=== PATIENT | male | born 1960 | race Caucasian/White ===

== ENCOUNTER 2023-04-15 07:49 | Emergency (ER) | payer OTHER, SELFPAY ==
[2023-04-15 07:50] VITALS: BP 135/76; PULSE 113; RESP 17; TEMP 36.4; O2SAT 96; BMI 25.7
--- NOTE | 2023-04-15 08:22 | CT_ITS ---
STUDY: CT ABDOMEN AND PELVIS WITHOUT CONTRAST REASON FOR EXAM: Male, 62 years old. Pain RADIATION DOSAGE (If Supplied By Facility): CTDIvol = ( 8.63 ) mGy, DLP = ( 498.18 ) mGycm TECHNIQUE: Transaxial images were obtained from the dome of the diaphragm to the symphysis pubis without oral contrast, and without intravenous contrast. Sagittal and coronal images were reconstructed. Individualized dose optimization techniques were used for this CT. COMPARISON: None. FINDINGS: Some left lower lobe discoid atelectasis. The visualized portions of the heart are within normal limits. Large amount of ascites. There is a diffuse contour abnormality of the liver consistent with cirrhotic changes. The gallbladder is contracted. There is moderate splenomegaly. Normal pancreas. Normal bilateral adrenal glands. Normal right kidney. Tiny (1 to 2 mm) nonobstructing stone in the midsection left kidney. No hydronephrosis, ureteral stone, ureteral dilatation. There is a small hiatal hernia. Normal small intestine. Normal colon. The appendix is visualized and appears normal. Normal abdominal aorta. Normal inferior vena cava. Normal retroperitoneum. Normal urinary bladder. Normal abdominal wall. Normal osseous structures. CT/Abdomen/Pelvis without Cont IMPRESSION: 1. Cirrhosis with a large amount of ascites and moderate splenomegaly consistent with portal hypertension. 2. Small hiatal hernia. 3. Tiny nonobstructing left renal stone. Electronically Signed: Jose Alejandro Solitario MD at 9:19 EST ,
--- NOTE | 2023-04-15 08:23 | EDS_ITS ---
HPI HPI - GI History of Present Illness Chief Complaint: Abd Pain Detail of Chief Complaint: Abdominal distention Informant: patient Narrative Narrative: Patient presents to the emergency department complaint of abdominal distention. Patient states that he was diagnosed a couple of weeks ago with cirrhosis as well as HIV. He was seen at [facility] locally and then was transferred to [facility] where he had a paracentesis. He was started on Biktarvy for his HIV. Patient states that he had some abdominal swelling and was in a come in and be seen 3 days ago but then the swelling went down. Since yesterday has had increased swelling in his abdomen again. He denies chest pain or shortness of breath. [facility] Medical History (Updated 04/15/23 @ 10:[address] Tenisha Corral DO) Cirrhosis HIV disease Allergy/AdvReac Type Severity Reaction Status Date / Time No Known Allergies Allergy Verified 04/15/23 07:53 Social History Smoking Status: Unknown if ever smoked ROS ROS ED Review of Systems ROS Unobtainable: other Constitutional Constitutional ED: Reports lethargy; Denies chills, fever(s), sweats or weight loss Eyes Eyes: Denies blurry vision, change in vision or diplopia ENT ENT ED: Denies rhinorrhea or sore throat Cardiovascular Cardiovascular: Denies chest pain, orthopnea or racing heartbeat Respiratory/Chest Respiratory/Chest: Denies cough, dyspnea, dyspnea on exertion, orthopnea or sputum Gastrointestinal Gastrointestinal: Reports abdominal pain; Denies diarrhea, nausea or vomiting Genitourinary Genitourinary ED: Denies dysuria, hematuria or urinary frequency Musculoskeletal Musculoskeletal: Denies arthralgias, back pain, myalgias or neck pain Integumentary Denies abscess, Abrasions or rash Neurologic Neurologic: Denies headache(s) or weakness Psychiatric Psychiatric: Denies anxiety, depression or suicidal thoughts Endocrine Endocrinology: Denies polydipsia, polyphagia or polyuria Hematologic/Lymphatic Hematologic/Lymphatic: Denies easy bleeding, easy bruising or lymphadenopathy Allergic/Immunologic Allergic/Immunologic ED: Denies mouth swelling, tongue swelling or urticaria EXAM Physical Exam Const Vital Signs: 04/15/23 07:50 Temperature 97.5 F L Temperature Source Temporal Pulse Rate 113 H Respiratory Rate 17 Blood Pressure 135/76 H Blood Pressure Mean 95 Pulse Ox 96 Oxygen Delivery Method Room Air Positive well nourished and well developed General Appearance ED: well developed and NAD HEENT Reports TM's clear and moist mucous membranes normocephalic and atraumatic; Negative for trauma or tenderness Tympanic Membrane ED: Yes TM's clear Eyes PERRL and EOMs intact bilaterally General Eye ED: Negative for pale conjunctiva or scleral icterus Neck no lymphadenopathy, supple and no JVD General: Negative for tenderness Chest Wall inspection of chest normal and palpation of chest normal Chest: Negative for tenderness Resp normal respiratory effort and clear to auscultation bilaterally Effort and Inspection: Negative for respiratory distress or pain with movement Auscultation: Negative for rhonchi, wheezes or diminished lung sounds Cardio regular rate, regular rhythm, S1 normal heart sound, S2 normal heart sound and no murmurs Peripheral Pulses: pulses 2+ throughout GI normal to inspection, nondistended, normoactive bowel sounds, soft to palpation, non-distended and no masses GI Narrative: Minimal discomfort to palpation. He does have slight distention and fluid wave noted. There is no rebound, rigidity, or. Signs. No mass palpated. Back/Spine no CVA tenderness and no thoracic nor lumbar tenderness Extremity normal to inspection General Extremety ED: Negative for edema General Extremity: Negative for edema Neuro oriented x3, CN's II-XII intact bilaterally, no sensory deficits noted and gait normal Sensorium / Orientation: awake, alert, oriented to person, oriented to place and oriented to time Motor Exam: strength 5/5 throughout and strength abnormal Psych mental status grossly normal Skin no rashes or lesions noted and no wounds MDM MDM MDM Narrative Medical decision making narrative: Patient presents with abdominal distention with history of cirrhosis and prior paracentesis. Patient has had his care at [facility]. IV line established. CBC with differential count of 12.2 with hemoglobin of 10.7 and platelet count of 230. Chemistries unremarkable. Patient did have elevated bilirubin of 8.5 with AST of 170 ALT was 43 and alk phos was 510. There are no old values for comparison. Patient and his sister state that his jaundice is about the same. Patient did have a CT scan of the abdomen pelvis that showed cirrhosis with large amount of ascites. Discussed this with patient and recommended that he should have a paracentesis. I do not have radiology or GI available for this. Recommended transfer back to [place] where he had his care before. Patient is telling me that now he feels improved and does not want to be transferred. Patient states that if his symptoms worsen that he will follow back up with [facility] or return here. He has appointments in 2 days with primary care physician and specialists. Lab Data Labs: Laboratory Results - last 24 hr 04/15/23 08:00 WBC 12.2 H RBC 3.58 L Hgb 10.7 L Hct 31.7 L MCV 88.5 MCH 29.9 MCHC 33.8 RDW Std Deviation 65.4 H RDW Coeff of Eloise 20.5 H Plt Count 230 MPV 10.3 Immature Gran % (Auto) 1.300 H Neut % (Auto) 57.1 Lymph % (Auto) 29.1 [place] % (Auto) 9.7 Eos % (Auto) 2.0 Baso % (Auto) 0.8 Absolute Neuts (auto) 7.0 Absolute Lymphs (auto) 3.56 Nucleated RBC % 0 Differential Comment SCANNED Anisocytosis 2+ Microcytosis 1+ Macrocytosis 1+ Sodium 131 L Potassium 3.8 Chloride 98 Carbon Dioxide 28.0 Anion Gap 5 BUN 11 Creatinine 0.88 Estim Creat Clear Calc 88.72 Est GFR (MDRD) Af Amer 113 Est GFR (MDRD) Non-Af 93 BUN/Creatinine Ratio 12.5 Glucose 111 H Calcium 7.0 L Total Bilirubin 8.50 H AST 170 H ALT 43 Alkaline Phosphatase 510 H Total Protein 7.1 Albumin 1.1 L Globulin 6.0 H Albumin/Globulin Ratio 0.2 L Radiography Diagnostic Testing: Clinical Impression(s) from Imaging Studies Abdomen/Pelvis CT 04/15/23 08:22 IMPRESSION: 1. Cirrhosis with a large amount of ascites and moderate splenomegaly consistent with portal hypertension. 2. Small hiatal hernia. 3. Tiny nonobstructing left renal stone. Electronically Signed: Jose Alejandro Solitario MD at 9:19 EST , Discharge Plan Triage Chief Complaint: Abd Pain ED Provider: Tenisha Corral Dx/Rx/DC Orders Clinical Impression: Ascites, Cirrhosis of liver Instructions: ED Ascites, ED Cirrhosis Primary Care Provider: Iva Hirsch NP Referrals: Hirsch,Iva ORAL HYGIENIST, ORAL HYGIENIST-C [Primary Care Provider] - Activity Restrictions/Additional Instructions: Keep your appointments with specialist and primary care physician. If worsening pain or increased swelling of the abdomen or fevers return to the emergency department for evaluation. I recommend that you have your fluid drained from your abdomen as soon as possible. Disposition Disposition: Home, Self Care
[2023-04-15 08:35] LABS: Absolute Lymphocyte Count 3.56 X10^3/uL (0.83-4.51); Basophil% 0.8 % (0-1); Eosinophil# 0.25 X10^3/uL; Hematocrit 31.7 % (40-54); Hemoglobin 10.7 g/dL (13.0-16.5); Lymphocyte # 3.56 X10^3/ul (0.83-4.51); Lymphocyte % 29.1 % (19-41); Mean Corp Hgb Conc 33.8 g/dL (32-36); Mean Corpuscular Hgb 29.9 pg (27.0-32.0); Mean Corpuscular Volume 88.5 fL (80-94); Mean Platelet Vol. 10.3 fl (6.2-12.0); Monocyte# 1.19 X10^3/uL; Monocyte% 9.7 % (0-10); NRBC Flagged by Analyzer 0 % (0-5); Neutrophil # 6.97 X10^3/uL (2.7-7.7); Neutrophil % 57.1 % (47-70); POSITIVE MORPHOLOGY YES; Platelet Count 230 K/mm3 (150-450); RBC Distribution Width CV 20.5 % (11.6-14.6); RBC Distribution Width SD 65.4 fl (35.1-43.9); Red Blood Count 3.58 M/mm3 (4.6-6.2); White Blood Count 12.2 K/mm3 (4.4-11.0)
[2023-04-15 09:02] LABS: Differential Indicated SCAN CRITERIA MET
[2023-04-15 09:12] LABS: ALB/GLOB Ratio 0.2 RATIO (0.9-2.4); AST(SGOT) 170 U/L (15-37); Alanine Aminotransfer ALT/SGPT 43 U/L (16-61); Albumin, Serum 1.1 g/dL (3.2-5.0); Alkaline Phosphatase 510 U/L (45-117); Anion Gap 5 (5-15); BUN 11 mg/dL (7-18); BUN/Creat Ratio 12.5 RATIO (10-20); Chloride 98 mmol/L (98-107); Creatinine, Serum 0.88 mg/dL (0.70-1.30); EST Glomerular Filtration Rate 93 mL/min (>60); Est Glom Filt Rate - Afr Amer 113 mL/min (>60); Estimated Creatinine Clearance 88.72 ml/min; Glucose 111 mg/dL (74-106); Potassium 3.8 mmol/L (3.5-5.1); Protein, Total 7.1 g/dL (6.4-8.2); Sodium Level 131 mmol/L (136-145)
[2023-04-15 09:33] LABS: Anisocytosis 2+; Differential Comment SCANNED; Macrocytosis 1+; Microcytosis 1+
[2023-04-15 10:28] VITALS: BP 118/74; PULSE 74; RESP 16; O2SAT 99
== END 2023-04-15 10:29 | disposition home or self-care (01) ==
PROVIDERS: Emergency Provider Emergency Medicine; PCP Nurse Practitioner Family; Referring Provider Emergency Medicine; Visit Provider Emergency Medicine
DX: R18.8 Other ascites (principal); K74.60 Unspecified cirrhosis of liver; Z21 Asymptomatic human immunodeficiency virus [HIV] infection status
CPT/HCPCS: 74176; 80053; 85025; 99282

== ENCOUNTER → 2023-04-18 | Outpatient (CLI) | payer OTHER, SELFPAY ==
[2023-04-18 08:15] VITALS: BP 112/70; PULSE 106; RESP 16; TEMP 37.4; O2SAT 95
[2023-04-18] MEDS: Lidocaine 2% (20 ml mdv) 20 ML Vial INFILT (08:19)
[2023-04-18 08:30] VITALS: BP 110/60; PULSE 105; RESP 20; O2SAT 98
[2023-04-18 08:45] VITALS: BP 117/55; PULSE 106; RESP 18; O2SAT 98
[2023-04-18 08:54] VITALS: BP 118/61; PULSE 105; RESP 20; O2SAT 97
--- NOTE | 2023-04-18 09:57 | PCM.OP.PRO ---
Procedure Report Date of Procedure: 04/18/23 Assessment & Plan Assessment/Plan (1) Ascites: QUALIFIERS: Ascites type: other type Qualified Code(s): R18.8 - Other ascites PLAN: PROCEDURE: Ultrasound guided paracentesis ORDERING PROVIDER: Layton Bailey CNP INDICATION: Male, 62 years old. Abdominal ascites. PROVIDER: TORIE Avila TECHNIQUE: The risks, benefits, and alternatives to the procedure were explained to the patient. The specific risks of bleeding, infection, and damage to bowel were detailed and accepted. Witnessed informed consent was obtained. The abdomen was ultrasonographically surveyed. An appropriate pocket of fluid was identified in the right lower quadrant. The skin was prepped with chlorhexidine and sterile field established. 2% lidocaine was used for local anesthetic. Using ultrasound guidance, the peritoneal cavity was accessed with a 5-English paracentesis needle/catheter system. The trocar was removed. A total of 3800 ml of clear yellow colored fluid was removed from the peritoneal cavity. The catheter was removed and a sterile dressing was applied. The procedure was well tolerated. IMPRESSION: Successful ultrasound-guided paracentesis with right lower quadrant access site. Procedures Radiology Radiology US Procedures: [id number] Paracentesis
== END | disposition home or self-care (01) ==
PROVIDERS: PCP Nurse Practitioner Family; Referring Provider Nurse Practitioner Family; Visit Provider Nurse Practitioner Family
DX: K70.31 Alcoholic cirrhosis of liver with ascites (principal)
CPT/HCPCS: 49083

== ENCOUNTER 2023-04-28 07:48 | Outpatient (CLI) | payer OTHER, SELFPAY ==
[2023-04-28 08:05] VITALS: BP 143/83; PULSE 110; RESP 18; TEMP 36.9; O2SAT 98
[2023-04-28] MEDS: Lidocaine 2% (20 ml mdv) 20 ML Vial INFILT (08:14)
[2023-04-28 08:20] VITALS: BP 127/74; PULSE 104; RESP 18; O2SAT 99
[2023-04-28 08:35] VITALS: BP 107/75; PULSE 99; RESP 18; O2SAT 99
[2023-04-28 08:43] VITALS: BP 122/71; PULSE 99; RESP 18; O2SAT 98
[2023-04-28 09:09] VITALS: BMI 25.7
[2023-04-28] MEDS: Albumin Human 25% (100 mL) 25 GM/100 ML BAG IV (09:13)
[2023-04-28] MEDS: 0.9% NaCl Peripheral Flush Adult/Peds IV (09:15)
[2023-04-28] MEDS: Albumin Human 25% (50 mL) 12.5 GM/50 ML IV.SOLN IV (10:44)
[2023-04-28 10:48] VITALS: BP 109/56; PULSE 99; RESP 16; TEMP 37.3; O2SAT 98
[2023-04-28 11:47] VITALS: BP 94/61; PULSE 100; RESP 16; TEMP 37.1; O2SAT 97
--- NOTE | 2023-04-28 12:51 | PCM.OP.PRO ---
Procedure Report Date of Procedure: 04/28/23 Assessment & Plan Assessment/Plan (1) Ascites: QUALIFIERS: Ascites type: due to alcoholic cirrhosis Qualified Code(s): K70.31 - Alcoholic cirrhosis of liver with ascites PLAN: PROCEDURE: Ultrasound guided paracentesis ORDERING PROVIDER: Layton Bailey CNP INDICATION: Male, 62 years old. Ascites. PROVIDER: TORIE Avila TECHNIQUE: The risks, benefits, and alternatives to the procedure were explained to the patient. The specific risks of bleeding, infection, and damage to bowel were detailed and accepted. Witnessed informed consent was obtained. The abdomen was ultrasonographically surveyed. An appropriate pocket of fluid was identified in the right upper quadrant. The skin was prepped with chlorhexidine and sterile field established. 2% lidocaine was used for local anesthetic. Using ultrasound guidance, the peritoneal cavity was accessed with a 5-Kinyarwanda paracentesis needle/catheter system. The trocar was removed. A total of 6050 ml of clear yellow colored fluid was removed from the peritoneal cavity. The catheter was removed and a sterile dressing was applied. The procedure was well tolerated. IMPRESSION: Successful ultrasound-guided paracentesis with right upper quadrant access site. Procedures Radiology Radiology US Procedures: [id number] Paracentesis
== END 2023-04-28 07:49 | disposition home or self-care (01) ==
LOC: US 08:55 → MEDOUTP 09:19
PROVIDERS: PCP Nurse Practitioner Family; Referring Provider Nurse Practitioner Family; Visit Provider Nurse Practitioner Family
DX: K70.31 Alcoholic cirrhosis of liver with ascites (principal)
CPT/HCPCS: 96365; 96366; 49083; J7050; P9047; A4216

== ENCOUNTER → 2023-05-05 | Outpatient (CLI) | payer OTHER, SELFPAY ==
[2023-05-05 07:57] VITALS: BP 126/82; PULSE 118; RESP 18; TEMP 36.9; O2SAT 99
[2023-05-05 08:00] VITALS: BP 140/86; PULSE 114; RESP 18; O2SAT 99
[2023-05-05] MEDS: Lidocaine 2% (20 ml mdv) 20 ML Vial INFILT (08:00)
[2023-05-05 08:15] VITALS: BP 136/85; PULSE 111; RESP 16; O2SAT 99
[2023-05-05 08:30] VITALS: BP 117/77; PULSE 110; RESP 16; O2SAT 99
--- NOTE | 2023-05-05 08:45 | PCM.OP.PRO ---
Procedure Report Date of Procedure: 05/05/23 Assessment & Plan Assessment/Plan (1) Ascites due to alcoholic cirrhosis: PLAN: PROCEDURE: Ultrasound guided paracentesis ORDERING PROVIDER: Layton Bailey CNP INDICATION: Male, 62 years old. Ascites. PROVIDER: TORIE Avila TECHNIQUE: The risks, benefits, and alternatives to the procedure were explained to the patient. The specific risks of bleeding, infection, and damage to bowel were detailed and accepted. Witnessed informed consent was obtained. The abdomen was ultrasonographically surveyed. An appropriate pocket of fluid was identified in the right lower quadrant. The skin was prepped with Betadine swabs and sterile field established. 2% lidocaine was used for local anesthetic. Using ultrasound guidance, the peritoneal cavity was accessed with a 5-Welsh paracentesis needle/catheter system. The trocar was removed. A total of 5800 ml of clear yellow colored fluid was removed from the peritoneal cavity. The catheter was removed and a sterile dressing was applied. The procedure was well tolerated. IMPRESSION: Successful ultrasound-guided paracentesis with right lower quadrant access site. Procedures Radiology Radiology US Procedures: [id number] Paracentesis
== END | disposition home or self-care (01) ==
PROVIDERS: PCP Nurse Practitioner Family; Referring Provider Nurse Practitioner Family; Visit Provider Nurse Practitioner Family
DX: K70.31 Alcoholic cirrhosis of liver with ascites (principal)
CPT/HCPCS: 49083

== ENCOUNTER → 2023-05-11 | Outpatient (CLI) | payer OTHER, SELFPAY ==
--- OUTSIDE RECORDS SUMMARY | 2023-05-11 07:58 | XMS RPT_ITS | CCD ---
Author Name Unknown Address [address] [facility] [address] [place] [address] Organization [facility] Care Team Providers Care Machining Technician Name Role Phone PHYSICIAN, NONE Primary Care Physician Unavailab kate Mcdermott RN, Leslee Hickey Unavailable Unavailable Yuly Marrero Unavailable Unavailable DONALD DREW, DR FLORES Attending Unavailable JOYA OLIVEROS MD Consulting Unavailable TERESE MCCARTNEY DO Admitting Unavailable PHYSICIAN, NONE Primary Care Unavailable OBI DREW, BARBIE Consulting Unavailable PHYSICIAN, NONE Primary Care Unavailable MADINA DREW, DR NAZARIO Diaz Attending TERESE Wyman DO Consulting Unavailable MARS SHEEHAN, AMBER Attending Unavailable PHYSICIAN, NONE Primary Care Unavailable Problems Problem Classification Problem Date Documented Date Episodic/Chronic Chronic obstructive pulmonary disease and bronchiectasis (1 source) Pulmonary emphysema; Translations: [Emphysema, unspecified] Chronic Deficiency and other anemia (1 source) Anemia; Translations: [Anemia, unspecified] Episodic HIV infection (2 sources) Human immunodeficiency virus infection; Translations: [Human immunodeficiency virus [HIV] disease] Chronic Other liver diseases (1 source) Cirrhosis of liver; Translations: [Unspecified cirrhosis of liver] Chronic Other liver diseases (2 sources) Unspecified cirrhosis of liver; Translations: [Unspecified cirrhosis of liver] Onset: 04-02-2023 Chronic Other nutritional; endocrine; and metabolic disorders (1 source) Hypocalcemia; Translations: [Hypocalcemia] Chronic Other nutritional; endocrine; and metabolic disorders (1 source) Disorder of bilirubin metabolism; 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 Results Test Name Value Interpretation Reference Range Facil ity Vital Signs Date Time Vital Sign Value Performing Clinician Faci ariana 04-11-2023 21:38-0500 Body temperature 98.6 [degF] AMBER CREWS DO [facility] 04-11-2023 21:38-0500 Diastolic Blood Pressure Non-Invasive 80 mm[Hg] AMBER FROMMELT DO [facility] 04-11-2023 21:38-0500 Heart rate 98 /min AMBER FROMMELT DO [facility] 04-11-2023 21:38-0500 Respiratory rate 16 /min AMBER FROMMELT DO [facility] 04-11-2023 21:38-0500 Systolic Blood Pressure Non-Invasive 142 mm[Hg] AMBER FROMMELT DO [facility] 04-11-2023 19:38-0500 Body height 177.8 cm AMBER FROMMELT DO [facility] 04-11-2023 19:38-0500 Body temperature 98.6 [degF] AMBER FROMMELT DO [facility] 04-11-2023 19:38-0500 Body weight 77.3 kg AMBER FROMMELT DO [facility] 04-11-2023 19:38-0500 Diastolic Blood Pressure Non-Invasive 74 mm[Hg] AMBER FROMMELT DO [facility] 04-11-2023 19:38-0500 Heart rate 104 /min AMBER FROMMELT DO [facility] 04-11-2023 19:38-0500 Respiratory rate 20 /min AMBER FROMMELT DO [facility] 04-11-2023 19:38-0500 Systolic Blood Pressure Non-Invasive 113 mm[Hg] AMBER FROMMELT DO [facility] 04-05-2023 14:36-0500 Blood Pressure Location TERESE MCCARTNEY DO [facility] 04-05-2023 14:36-0500 Blood Pressure Method TERESE MCCARTNEY DO [facility] 04-05-2023 14:36-0500 Body temperature 98.96 [degF] TERESE SHERRILL SHEEHAN [facility] 04-05-2023 14:36-0500 Diastolic Blood Pressure Non-Invasive 75 mm[Hg] TERESE SHERRILL [address] [place] [address] 04-05-2023 14:36-0500 Heart rate 102 /min TERESE SHERRILL SHEEHAN [address] [place] [address] 04-05-2023 14:36-0500 Mean blood pressure 86 mm[Hg] TERESE SHERRILL SHEEHAN [address] [place] [address] 04-05-2023 14:36-0500 Reason For Taking VItal Signs TERESE SHERRILL [address] [place] [address] 04-05-2023 14:36-0500 Respiratory rate 18 /min TERESE SHERRILL SHEEHAN [address] [place] [address] 04-05-2023 14:36-0500 Systolic Blood Pressure Non-Invasive 128 mm[Hg] TERESE SHERRILL DO [address] [place] [address] 04-05-2023 06:55-0500 Body temperature 98.6 [degF] TERESE SHERRILL [address] [place] [address] 04-05-2023 06:55-0500 Diastolic Blood Pressure Non-Invasive 69 mm[Hg] TERESE SHERRILL DO [address] [place] [address] 04-05-2023 06:55-0500 Heart rate 105 /min TERESE COSTALY [address] [place] [address] 04-05-2023 06:55-0500 Reason For Taking VItal Signs TERESE MCCARTNEY DO [facility] 04-05-2023 06:55-0500 Respiratory rate 18 /min TERESE MCCARTNEY DO [facility] 04-05-2023 06:55-0500 Systolic Blood Pressure Non-Invasive 115 mm[Hg] TERESE SHERRILL DO [facility] 04-05-2023 05:10-0500 Respiratory rate 18 /min TERESE SHERRILL [address] [place] [address] 04-05-2023 00:22-0500 Blood Pressure Cuff Size TERESE SHERRILLBILL SHEEHAN [address] [place] [address] 04-05-2023 00:22-0500 Blood Pressure Location TERESE MCCARTNEY DO [address] [place] [address] 04-05-2023 00:22-0500 Blood Pressure Method TERESE SHERRILL [address] [place] [address] 04-05-2023 00:22-0500 Body temperature 98.24 [degF] TERESE SHERRILL [address] [place] [address] 04-05-2023 00:22-0500 Diastolic Blood Pressure Non-Invasive 58 mm[Hg] TERESE SHERRILL SHEEHAN [address] [place] [address] 04-05-2023 00:22-0500 Heart rate 102 /min TERESE SHERRILL SHEEHAN [address] [place] [address] 04-05-2023 00:22-0500 Systolic Blood Pressure Non-Invasive 105 mm[Hg] TERESE SHERRILL SHEEHAN [address] [place] [address] 04-04-2023 16:38-0500 Blood Pressure Location TERESE SHERRILL [address] [place] [address] 04-04-2023 16:38-0500 Blood Pressure Method TERESE SHERRILL SHEEHAN [address] [place] [address] 04-04-2023 16:38-0500 Mean blood pressure 78 mm[Hg] TERESE MCCARTNEY DO [address] [place] [address] 04-04-2023 16:38-0500 Reason For Taking VItal Signs TERESE MCCARTNEY DO [address] [place] [address] 11-20-2023 07:03-0500 Blood Pressure Cuff Size TERESE SHERRILL DO [facility] 04-03-2023 01:20-0500 Blood Pressure Cuff Size TERESE WELLERERLY DO [facility] 04-02-2023 19:53-0500 Body height 177.8 cm TERESE WELLERERLY DO [address] [place] [address] 04-02-2023 19:53-0500 Body weight 73.7 kg TERESE SHERRILL DO [facility] 04-02-2023 04:27-0500 Heart rate 100 /min TERESE WELLERERLY DO [address] [place] [address] 04-01-2023 23:59-0500 Body height 177.8 cm TERESE MCCARTNEY DO [address] [place] [address] 04-01-2023 23:59-0500 Body weight 76.9 kg TERESE WELLERERLY DO [facility] 04-01-2023 23:59-0500 Body weight 24.33 kg/m2 TERESE WELLERERLY DO [address] [place] [address] 04-01-2023 23:50-0500 Heart rate 94 /min TERESE MCCARTNEY DO [facility] Encounters Encounter Date Encounter Type Care Provider Facility Start: 04-11-2023 End: 04-11-2023 Emergency department patient visit AMBER CREWS Facility:B Start: 04-11-2023 End: 04-11-2023 [facility] department [facility] Start: 04-02-2023 End: 04-05-2023 Evaluation and management of inpatient DR NATHALIE CLEVELAND MD Facility:A Start: 04-01-2023 End: 04-05-2023 Evaluation and management of inpatient TERESE SHERRILL SHEEHAN [facility] Start: 04-01-2023 End: 04-02-2023 Emergency department patient visit NONE PHYSICIAN Facility:B Payers Date Payer Category Payer Unknown [id number] 1960 Unknown [id number] 1960 Unknown [id number] 1960 Unknown [id number] Social History Date Type Detail Facility Tobacco smoking status No Smoking Status Entered [facility] Sex Assigned At Male [facility] Functional Status Date Assessment Result Facility 04-11-2023 Functional Status Room check performed [facility] 04-11-2023 Functional Status [facility] 04-05-2023 Functional Status Room check performed [facility] 04-05-2023 Functional Status [facility] 04-05-2023 Functional Status 7am-11am [facility] 04-05-2023 Functional Status [facility] 04-04-2023 Functional Status [facility] 04-04-2023 Functional Status Assistive Device None [facility] 04-04-2023 Functional Status [facility] 04-04-2023 Functional Status Multilevel home [facility] 04-04-2023 Functional Status [facility] 04-03-2023 Functional Status bilateral knee high removed/off [facility] 04-03-2023 Functional Status [facility] 04-03-2023 Functional Status [facility] 04-03-2023 Functional Status [facility] 04-01-2023 Functional Status Sensory Deficits None A [facility] Mental Status Date Assessment Result Facility 04-11-2023 Mental Status Oriented x 4 [facility] 04-11-2023 Mental Status [facility] 04-05-2023 Mental Status Orientation Oriented x [address] [facility] 11-21-2023 Mental Status [facility] 04-04-2023 Mental Status [facility] 04-03-2023 Mental Status [facility] 04-02-2023 Mental Status [facility] Clinical Notes 04-02-2023 to 04-11-2023 Note Date & Type Note Facility 04-11-2023 Hospital Discharg e instructions Patient Education 04/11/2023 21:19:48 Cirrhosis Cirrhosis The liver is found on the right side of your belly (abdomen). It is just below the rib cage. The liver has many important jobs. It removes toxins from the blood. It also helps your blood clot to stop bleeding. Cirrhosis happens when the liver is scarred or injured. This damage is permanent. It can cause your liver to stop working (liver failure). The most common causes of cirrhosis are long-term heavy alcohol use and having hepatitis B or C. Other causes include nonalcoholic steatohepatitis (HOBBS or fatty liver disease), hemochromatosis, toxins, certain medicines, and certain viruses. Common symptoms of cirrhosis include: Tiredness or weakness Loss of appetite Nausea and vomiting Easy bleeding and bruising Swelling of the belly (abdomen) Weight loss Yellowing of the eyes or skin (jaundice) Itching Confusion Treatment helps ease symptoms and prevent more liver damage. You may also get treatment to fight the hepatitis virus. Quitting alcohol will help slow down the disease getting worse. It may also prevent more complications. If cirrhosis gets worse and becomes life threatening, you may need a liver transplant. Home care Don't take medicines that can make liver damage worse. Your healthcare provider will tell you if any of the medicines you now take need to be changed. Talk with your provider or pharmacist before taking any medicine not prescribed. These include dietary supplements and herbs. Some of these may make liver damage worse. Talk with your healthcare provider about medicines that have acetaminophen or NSAIDs such as ibuprofen and naproxen. These can also harm your liver. Stop drinking alcohol. If you find it hard to stop drinking, seek professional help. Consider joining Alcoholics Anonymous or another type of treatment program for support. If you use IV drugs, you are at high risk for hepatitis B and C. Seek help to stop. Be sure to ask your healthcare provider about recommended vaccines. These include vaccines for viruses that can cause liver disease. Follow-up care Follow up with your healthcare provider, or as advised. For more information and to learn about support groups for people with liver disease, contact: [employer], www.liverfoundation.org, Hep[employer], www.hepfi.org, When to seek medical advice Call your healthcare provider right away if you have any of the following: Rapid weight gain with increased size of your belly (abdomen) or leg swelling Yellow color of your skin or eyes (jaundice) gets worse Excess bleeding from cuts or injuries [id number] [place] [address]. All rights reserved. This information is not intended as a substitute for professional medical care. Always follow your healthcare professional's instructions. Follow Up Care 04/11/2023 19:34:58 With:[facility] Address: [address] [place] [phone]- [phone] When:2-4 days With:Call AMB New Pt. Refferral [phone] Address:Unknown When:2-4 days With:Call Physician Referral Address:Unknown When:2-4 days With:BENSON BANEGAS DO Address: [address] [place] [phone]- [phone] When:2-4 days [facility] 04-11-2023 Note Discharge Instructions Thank you for allowing [facility] to assist you with your healthcare needs. The following is important discharge information regarding your hospital visit. Diagnosis from Today's Visit Abdominal swelling Sore throat - Adult What to Do Next Instructions from Your Care Team No qualifying data available. Post Acute Orders No qualifying data available. You Need to Schedule the Following Appointments Follow Up with FAMILY JEN NOONAN When Within 2-4 days Where: [facility] [place] [address]- [phone] Follow Up with Call AMB New Pt. Refferral [phone] When Within 2-4 days Follow Up with Call Physician Referral When Within 2-4 days Follow Up with BENSON BANEGAS DO When Within 2-4 days Where: [address] [place] [address] [place] [address] [phone] Allergies NKA No Known Medication Allergies Medications Please ask your primary doctor or pharmacist before taking any other medication not listed, including over the counter drugs, herbal medications, vitamins and or supplements as they may interact with your home medications. Please take this list to your next doctor s visit. Bring all medications you take, including over the counter medications, herbals and other supplements with you to your doctor s visit. Patients and families are reminded to discard old lists and to update any records with all medication providers or retail pharmacies. Education Materials Cirrhosis The liver is found on the right side of your belly (abdomen). It is just below the rib cage. The liver has many important jobs. It removes toxins from the blood. It also helps your blood clot to stop bleeding. Cirrhosis happens when the liver is scarred or injured. This damage is permanent. It can cause your liver to stop working (liver failure). The most common causes of cirrhosis are long-term heavy alcohol use and having hepatitis B or C. Other causes include nonalcoholic steatohepatitis (HOBBS or fatty liver disease), hemochromatosis, toxins, certain medicines, and certain viruses. Common symptoms of cirrhosis include: Tiredness or weakness Loss of appetite Nausea and vomiting Easy bleeding and bruising Swelling of the belly (abdomen) Weight loss Yellowing of the eyes or skin (jaundice) Itching Confusion Treatment helps ease symptoms and prevent more liver damage. You may also get treatment to fight the hepatitis virus. Quitting alcohol will help slow down the disease getting worse. It may also prevent more complications. If cirrhosis gets worse and becomes life threatening, you may need a liver transplant. Home care Don't take medicines that can make liver damage worse. Your healthcare provider will tell you if any of the medicines you now take need to be changed. Talk with your provider or pharmacist before taking any medicine not prescribed. These include dietary supplements and herbs. Some of these may make liver damage worse. Talk with your healthcare provider about medicines that have acetaminophen or NSAIDs such as ibuprofen and naproxen. These can also harm your liver. Stop drinking alcohol. If you find it hard to stop drinking, seek professional help. Consider joining Alcoholics Anonymous or another type of treatment program for support. If you use IV drugs, you are at high risk for hepatitis B and C. Seek help to stop. Be sure to ask your healthcare provider about recommended vaccines. These include vaccines for viruses that can cause liver disease. Follow-up care Follow up with your healthcare provider, or as advised. For more information and to learn about support groups for people with liver disease, contact: [employer], www.liverfoundation.org, Hepatitis [employer], www.hepfi.org, When to seek medical advice Call your healthcare provider right away if you have any of the following: Rapid weight gain with increased size of your belly (abdomen) or leg swelling Yellow color of your skin or eyes (jaundice) gets worse Excess bleeding from cuts or injuries [phone] [employer]. [address] [place] [address], [place] [address]. All rights reserved. This information is not intended as a substitute for professional medical care. Always follow your healthcare professional's instructions. Additional Information VACCINATE! IT SAVES LIVES! Members of the community who have not yet received the COVID-19 vaccine and would like to receive it can visit one of [facility] vaccine clinics. There are many vaccine clinic locations within the [facility]. For locations and available times, please visit www.gettheshot.coronavirus.[place] .gov/. It is important to note that some COVID mobile vaccine clinics are held outdoors and may be canceled in rainy or stormy conditions. To learn more about pediatric vaccinations (ages 5-11), we invite you to visit the [facility] webpage. https://www.[facility].org/ pages/6353-Fuucr-Hswqhlkhvbf-Fr ahegjyoo-Cvmbn-Vmlszzrmz.html To learn more about the COVID-19 vaccine, we invite you to visit the CDC website for a list of frequently asked questions. https://www.cdc.gov/coronavirus /2019-ncov/vaccines/faq.html [facility] Patient Portal Access Instructions: Stay connected with your healthcare team and access your personal medical information anytime with the [facility] Patient Portal. If you would like a full copy of your medical records please contact the [facility] Medical Records Department Monday through Monday between 8a.m. and 4:30p.m. Please follow the directions below to access the portal: 1.Access the email account you provided upon registration to the [facility].2.Look for an invitation email from [facility].3.Open the email and access the invitation link: Accept Invitation to [facility].Fill in the required berg to create your account. Sign into [email or web address] with your username and password that you created in the above steps to stay up to date. You can then view a summary of results, a summary of your visits, and the ability to download your summaries to your computer or send the information securely to a physician. Remember that your healthcare information is confidential, so carefully consider who you will allow to register on the [facility] Patient Portal for access to your information. You can also access the [facility] Patient Portal on the [employer] mimi. Simply click on Health Records under Health Data and then click on the [facility] logo. HOW TO SAFELY DISPOSE OF PRESCRIPTION MEDICATIONS Please use one of the following methods to safely dispose of your unused medications. 1.Use a drug disposal kit: the drug disposal pouch allows you to safely discard your old and unused drugs. Ask your nurse to give you one when you are discharged.2.Visit a local take-back location: Many local pharmacies and police departments have programs that collect old and unwanted prescription drugs. Call your local pharmacy or go to http://[employer]/3S3Oq1e to find one close to you.3.Make use of household items: Use cat litter or old coffee grounds to dispose medications if other options are not available. Mix your drugs with these household products, seal them in an airtight container and throw it into the garbage. Call [facility]: [phone] to be sure your drugs can be disposed of in this way. Some medicines may require a different approach.4.Never flush your medications down the toilet. IF YOU HAVE BEEN PRESCRIBED AN OPIOIDS FOR PAIN If you have been prescribed an opioid (such as hydrocodone, oxycodone or morphine), it is critical to understand the possible side effects and risks of opioid pain medications. Even when taken as directed, opioids can have several side effects including: Tolerance, meaning you might need to take more of a medication for the same pain relief. Nausea, vomiting and/or constipation. Sleepiness, dizziness, dry mouth, confusion, depression or itching. Physical dependence, meaning you have withdrawal symptoms when a medication is stopped ? this can develop within a few days. KNOW YOUR RESPONSIBILITIES It is important to know exactly how much and how often to take the opioid pain medications you are prescribed. Never take opioids in higher amounts or more often than prescribed. Do not combine opioids with alcohol or other drugs that cause drowsiness, such as benzodiazepines, also known as benzos, including diazepam and alprazolam, muscle relaxants or sleep aids. Never sell or share prescription opioids. This is illegal. Store opioids in a secure place and out of reach of others (including children, family, friends and visitors). The last page(s) of this document has been signed and retained as a CHART COPY Signatures Patient Education Materials Cirrhosis Medication Leaflets My discharge plan and instructions have been reviewed and explained to me and I,WILLY JAEGER understand my current condition and have read and understand these discharge instructions. I have received a written copy of the plan/instructions. If I have questions, I am aware that I should contact my doctor. 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 There are low lung volumes with hypoventilatory changes. Left lateral lung base atelectasis. There is no focal consolidation. There is no pulmonary edema. There is no evidence of pleural effusion. There is no evidence of pneumothorax. No fracture is identified. IMPRESSION: No acute abnormality is identified. Interpreted by: Kwadwo Walker Preliminary Report By: Kwadwo Walker Electronically signed By Kwadwo Walker Dictated Date: 04/11/2023 8:44:57 PM Prelim Date: 04/11/2023 8:46:05 PM Sign Date: 04/11/2023 8:46:05 PM [facility] . MICRO - Microbiology PROCEDURE: Culture Body Fluid with Gram Stain [*1] SOURCE: Paracentesis Fluid BODY SITE: COLLECTED DATE/TIME: 04/03/2023 08:32 EST RECEIVED DATE/TIME: 04/03/2023 12:58 EST START DATE/TIME: 04/03/2023 12:59 EST FREE TEXT SOURCE: FINAL REPORTS Final Report [] Verified Date/Time/Personnel: 04/08/2023 12:59 EST Culture: No Growth at 5 days. PRELIMINARY REPORTS Preliminary Report [] Verified Date/Time/Personnel: 04/03/2023 13:59 EST Culture has been received in lab and is no growth to date. Routine cultures are held for 5 days. STAINS GS [] Verified Date/Time/Personnel: 04/03/2023 13:52 EST Sedimented 4+ Mononuclear cells No organisms seen. Performing Locations *1: This test was performed at: [facility], [address] [place] [address], [facility] , [facility] [place] 04-05-2023 Discharge summary Date of Service 04/05/2023 Discharge Diagnosis 1. Chronic alcoholic liver cirrhosis with ascites. 2. Status post paracentesis. 3. History of alcohol use. 4. Anemia, likely due to alcoholic liver cirrhosis. 5. Elevated lipase. 6. Hypocalcemia. 7. Esophageal wall thickening, requiring EGD as an outpatient. 8. Hyper bilirubinemia, transaminitis. 9. Hypokalemia. 10. HIV positive. Unspecified cirrhosis of liver (K74.60 - ICD-10-CM) Unspecified cirrhosis of liver (K74.60 - ICD-10-CM) Human immunodeficiency virus [HIV] disease (B20 - ICD-10-CM) Hypocalcemia (E83.51 - ICD-10-CM) Other disorders of bilirubin metabolism (E80.6 - ICD-10-CM) Anemia, unspecified (D64.9 - ICD-10-CM) Asymptomatic human immunodeficiency virus [HIV] infection status (Z21 - ICD-10-CM) Emphysema, unspecified (J43.9 - ICD-10-CM) Additional Orders: Other status: BMP,04/05/23 5:00:00 EST, Next AM Draw (one day only), Blood, Once, Stop date 04/05/23 5:00:00 EST(Complete) Other status: CBC,04/05/23 5:00:00 EST, Next AM Draw (one day only), Blood, Once, Stop date 04/05/23 5:00:00 EST(Complete) Hospital Course 62-year-old male with multiple medical problems including alcohol abuse, presented to the hospital with abdominal distention, ascites, patient was admitted to the hospital paracentesis was done, 2500 mL were removed, Doppler showed mildly nodular contour of the liver indicate of of underlying fibrosis/cirrhosis, gastroenterology team evaluated the patient and they recommended MRI of the liver which showed nodularity of the liver compatible with cellular disease, and possible portal hypertension, no masses or lesions, also patient was found to have HIV positive, viral load was elevated ID team evaluated the patient, bunch of testing was also ordered, and patient was started on Biktarvy, patient was advised to follow-up with his family doctor, as well as with infectious disease team as well as the gastroenterology team. I did discuss the discharge plan with the infectious disease team who recommended the antiviral medication for HIV, social worker palliative care/case fitter were working on helping the patient get the medication. Patient was examined and evaluated by me, he was awake alert and oriented x3, denying any chest pain, no abdominal pain, no nausea or vomiting, no recliners or dizziness, patient was tolerating diet fairly well patient will be discharged home today all his questions were answered, his concerns were addressed. I offered to call his family stating that he will update the family by himself Allergies NKA No Known Medication Allergies Procedures Paracentesis Consults Consult to Physician - Ordered -- 04/02/23 1:18:00 MADELINE, BARBIE VOGEL MD, Routine, Cirrhosis, moderate distal esophageal wall thickening that can be seen with esophagitis versus neoplasm Consult to Physician - Ordered -- 04/02/23 20:09:00 MADELINE, NIGEL HASSAN MD, Routine, follow up cirrhosis Consult to Physician - Ordered -- 04/03/23 12:47:00 MADELINE, JOYA OLIVEROS MD, Routine, new HIV Imaging Results and Diagnostics Please see Cerner Objective Vitals and Measurements T: 37.0 C (Oral) TMIN: 36.7 C (Oral) TMAX: 37.0 C (Oral) HR: 105 RR: 18 BP: 115/69 SpO2: 97% Weight Dosing Weight: 73.7 kg (04/02/23) Dosing Weight: 76.9 kg (04/01/23) Head: atraumatic normocephalic Neck: supple no JVD Lungs: clear to auscultation bilaterally, no wheezes no accessory muscle use. Heart: S1-S2 regular rate and rhythm, no murmurs Abdomen: soft nontender nondistended, bowel sounds are present all 4 quadrants Lower extremities: no cyanosis, no chronic skin changes, pulse palpable +1 bilaterally, no edema Skin: showed no rash Neurological: patient is awake alert and oriented 3, no focal neurological deficit. Pending Labs and Studies Follow the labs that were drawn in the hospital with your family doctor and infectious disease doctor Code Status Code Status - Ordered -- 04/02/23 0:20:00 EST, Full Code, Constant Order Admission Date 04/01/2023 Discharge Date 04/05/2023 Follow Up Follow Up with ZARINA GARVEY When 04/13/2023 09:30 AM EST Why: Please arrive 15 minutes early. Bring your insurance card and your photo ID along with list of medications. The paperwork you was discharged with please also bring that with you as well . Where: [address] [place] [address]- Follow Up with TONY LÓPEZ BA, MD, Infectious Disease, Infectious Disease Group When In 1 day Why: Please call the office and schedule appointment Where: [facility] [id number] [place] [address]- Follow Up with NIGEL HASSAN MD When In 3 weeks Why: Please call and schedule an appointment. Where: [address] [facility], [place] [phone] Follow Up with Call Physician Referral When Within 1-2 days Where: Follow Up Appointments No qualifying data available. Follow Up Labs/Studies Discharge Labs No Follow-up Labs Discharge Studies No Follow-up Studies Discharge Diet Discharge Diet - Ordered -- Type of Diet: Regular, 04/05/23 12:12:00 EST Discharge Activity Discharge Activity - Ordered -- Resume your pre-hospitalization activity, 04/05/23 12:12:00 EST Condition on Discharge Stable Readmission Risk/Palliative Score LACE Score: 7 (04/03/23 11:21:00) Palliative Total Score: 0 (04/03/23 11:21:00) Discharge Disposition Home Time Spent 35 minutes Digitally Signed by NATHALIE CLEVELAND MD on 04/05/2023 02:13 PM [facility] 04-05-2023 Hospital Discharg e instructions Patient Education 04/05/2023 12:13:19 Cirrhosis Cirrhosis Cirrhosis is long-term (chronic) liver injury. The liver is the body's largest internal organ, and it performs many functions. It converts food into energy, removes toxic material from the blood, makes important proteins, and absorbs necessary vitamins from food. In cirrhosis, healthy liver cells are replaced by scar tissue. This prevents blood from flowing through the liver, making it difficult for the liver to function. Scarring of the liver cannot be reversed, but treatment can prevent it from getting worse. What are the causes? Common causes of this condition are hepatitis C and long-term alcohol abuse. Other causes include: Nonalcoholic fatty liver disease. This happens when fat is deposited in the liver by causes other than alcohol. Hepatitis B infection. Autoimmune hepatitis. In this condition, the body's defense system (immune system) mistakenly attacks the liver cells, causing irritation and swelling (inflammation). Diseases that cause blockage of ducts inside the liver. Inherited liver diseases, such as hemochromatosis. This is one of the most common inherited liver diseases. In this disease, deposits of iron collect in the liver and other organs. Reactions to certain long-term medicines, such as amiodarone, a heart medicine. Parasitic infections. These include schistosomiasis, which is caused by a flatworm. Long-term contact to certain toxins. These toxins include certain organic solvents, such as toluene and chloroform. What increases the risk? You are more likely to develop this condition if: You have certain types of viral hepatitis. You abuse alcohol, especially if you are female. You are overweight. You share needles. You have unprotected sex with someone who has viral hepatitis. What are the signs or symptoms? You may not have any signs and symptoms at first. Symptoms may not develop until the damage to your liver starts to get worse. Early symptoms may include: Weakness and tiredness (fatigue). Changes in sleep patterns or having trouble sleeping. Itchiness. Tenderness in the right-upper part of your abdomen. Weight loss and muscle loss. Nausea. Loss of appetite. Appearance of tiny blood vessels under the skin. Later symptoms may include: Fatigue or weakness that is getting worse. Yellow skin and eyes (jaundice). Buildup of fluid in the abdomen (ascites). You may notice that your clothes are tight around your waist. Weight gain. Swelling of the feet and ankles (edema). Trouble breathing. Easy bruising and bleeding. Vomiting blood. Black or bloody stool. Mental confusion. How is this diagnosed? Your health care provider may suspect cirrhosis based on your symptoms and medical history, especially if you have other medical conditions or a history of alcohol abuse. Your health care provider will do a physical exam to feel your liver and to check for signs of cirrhosis. He or she may perform other tests, including: Blood tests to check: ?For hepatitis B or C. ?Kidney function. ?Liver function. Imaging tests such as: ?MRI or CT scan to look for changes seen in advanced cirrhosis. ?Ultrasound to see if normal liver tissue is being replaced by scar tissue. A procedure in which a long needle is used to take a sample of liver tissue to be checked in a lab (biopsy). Liver biopsy can confirm the diagnosis of cirrhosis. How is this treated? Treatment for this condition depends on how damaged your liver is and what caused the damage. It may include treating the symptoms of cirrhosis, or treating the underlying causes in order to slow the damage. Treatment may include: Making lifestyle changes, such as: ?Eating a healthy diet. You may need to work with your health care provider or a diet and patent law specialist (dietitian) to develop an eating plan. ?Restricting salt intake. ?Maintaining a healthy weight. ?Not abusing drugs or alcohol. Taking medicines to: ?Treat liver infections or other infections. ?Control itching. ?Reduce fluid buildup. ?Reduce certain blood toxins. ?Reduce risk of bleeding from enlarged blood vessels in the stomach or esophagus (varices). Liver transplant. In this procedure, a liver from a donor is used to replace your diseased liver. This is done if cirrhosis has caused liver failure. Other treatments and procedures may be done depending on the problems that you get from cirrhosis. Common problems include liver-related kidney failure (hepatorenal syndrome). Follow these instructions at home: Take medicines only as told by your health care provider. Do not use medicines that are toxic to your liver. Ask your health care provider before taking any new medicines, including yrtz-vmr-[id number] medicines. Rest as needed. Eat a well-balanced diet. Ask your health care provider or dietitian for more information. Limit your salt or water intake, if your health care provider asks you to do this. Do not drink alcohol. This is especially important if you are taking acetaminophen. Keep all follow-up visits as told by your health care provider. This is important. Contact a health care provider if you: Have fatigue or weakness that is getting worse. Develop swelling of the hands, feet, legs, or face. Have a fever. Develop loss of appetite. Have nausea or vomiting. Develop jaundice. Develop easy bruising or bleeding. Get help right away if you: Vomit bright red blood or a material that looks like coffee grounds. Have blood in your stools. Notice that your stools appear black and tarry. Become confused. Have chest pain or trouble breathing. Summary Cirrhosis is chronic liver injury. Liver damage cannot be reversed. Common causes are hepatitis C and long-term alcohol abuse. Tests used to diagnose cirrhosis include blood tests, imaging tests, and liver biopsy. Treatment for this condition involves treating the underlying cause. Avoid alcohol, drugs, salt, and medicines that may damage your liver. Contact your health care provider if you develop ascites, edema, jaundice, fever, nausea or vomiting, easy bruising or bleeding, or worsening fatigue. This information is not intended to replace advice given to you by your health care provider. Make sure you discuss any questions you have with your health care provider. Document Released: 05/01/2006 Document Revised: 08/21/2019 Document Reviewed: 03/21/2018 [employer] Patient Education 2020 [employer]. Follow Up Care 04/01/2023 21:15:02 With:TONY LÓPEZ BA, MD, Infectious Disease, Infectious Disease Group Address: [facility] [address] [place] [address]- When:Within 1 Day(s) Comments:Please call the office and schedule appointment With:NIGEL HASSAN MD Address: [address] [facility], [place] [phone] When:Within 3 Week(s) Comments:Please call and schedule an appointment. With:ZARINA GARVEY Address: [address] [place] [address]- When:04/13/2023 09:30:00 Comments:Please arrive 15 minutes early. Bring your insurance card and your photo ID along with list of medications. The paperwork you was discharged with please also bring that with you as well . With:Call Physician Referral Address: When:1-2 days [facility] 04-05-2023 Progress note Date of Service 04/05/2023 Subjective Patient was seen and examined at bedside earlier this morning. Per patient, his diarrhea is improved. He still complains of sore throat and intermittent cough. No chest pain, abdominal pain, nausea or vomiting. Vitally stable. Objective Vitals and Measurements T: 37.0 C (Oral) TMIN: 36.7 C (Oral) TMAX: 37.0 C (Oral) HR: 105 RR: 18 BP: 115/69 SpO2: 97% Intake and Output 7AM Yesterday to 7AM Today Intake and Output (Last 24 hours) Intake Oral Intake 1340.00 Output Urine Count 2.00 Total Summary Total Intake 1340.00 Total Output 0.00 Fluid Balance 1340.00 Physical Exam General: Awake, alert, cooperative, no distress. HEENT: Head atraumatic, normocephalic. PERRLA, EOMI. Cardiovascular: Heart regular rate and rhythm Respiratory: Bilateral air entry equal, clear to auscultation Abdomen: Soft, nontender. Audible bowel sounds. Extremities: No clubbing, cyanosis. No pedal edema. Vascular: Pulses intact 4 extremities. Neurologic: No focal motor or sensory deficits Joints: Grossly normal Skin: Warm and dry Weight Dosing Weight: 73.7 kg (04/02/23) Dosing Weight: 76.9 kg (04/01/23) Medications Medications (7) Active Scheduled: (2) bictegravir/emtricitabine/tenof ovir 50 mg-200 mg-25 mg tablet 1 tab(s), Oral, qDay Misc communication order BICTEGRAVIR/EMT/TENO, Miscellaneous, qDay Continuous: (0) PRN: (5) Al hydrox/Mg hydrox/simethicone 200-200-20 mg/5 mL Susp UD 30 mL, Oral, q6h albuterol - ipratropium 2.5 mg-0.5 mg/3 mL Inhal Alyssa UD 3 mL, Inhalation, q4hRT benzocaine-menthol (Cepacol Sore Throat) 15 mg-3.6mg lozenge 1 lozenge(s), Oral, q4h dextrose 50% Solution Disp syringe 50 mL 12.5 gram(s) 25 mL, IV Push, AsDirected ondansetron 2 mg/ 1 mL 2 mL INJ 4 mg 2 mL, IV Push, q4h Lab Results 04/04 11:19 Glucose Level: 120 H Sodium Level: 134 L Potassium Level: 3.7 BUN: 12.0 Creatinine Lvl (s): 0.63 Imaging Results and Diagnostics MRI Liver Result Date: April 04, 2023 Verified By: CLINICAL STATEMENT: IMPRESSION: US Abdomen/Abd Doppler Result Date: April 03, 2023 Verified By: EVERARDO HOLLAND MD CLINICAL STATEMENT: IMPRESSION: Mildly nodular contour of the liver indicative of underlyingfibrosis/cirrhosis with mild perihepatic ascites noted. No evidence of portal venous thrombosis or hepatic vein thrombosis. Gallbladder wall thickening possibly secondary to portal venouscongestion/ascites. No other findings to suggest cholecystitis. Incidental right pleural effusion. US Paracentesis Result Date: April 03, 2023 Verified By: BILL WELLER MD CLINICAL STATEMENT: IMPRESSION: Successful ultrasound guided paracentesis This procedure was performed by Nancy Koehler PA-C. EKG No qualifying data available. Assessment/Plan HIV 1 infection Elevated HIV RNA load Hx of chronic alcoholic liver cirrhosis DVT prophylaxis CODE STATUS 62-year-old male is admitted to the hospital for abdominal distention secondary to ascites from chronic alcoholic liver cirrhosis. Infectious disease is consulted for HIV antibody being positive on 04/02/2023. Patient HIV differentiation is safe for the antibodies was sent which is consistent with active HIV-1 infection. Patient has significantly elevated HIV RNA load of [id number]. Further evaluation including CD4 helper T-cell count and HIV drug resistance testing has been sent. Will screen the patient for following infections; -Neisseria gonorrhea -Chlamydia trachomatis -Syphilis -Toxoplasma gondii -Cryptococcus Per guidelines, patient will be started on Biktarvy 1 tablet daily. Patient is advised to continue the medication for 30 days. For patient liver cirrhosis extensive workup has been ordered by GI that includes; -Acute hepatitis panel which is negative -Total hepatitis B core antibody is pending -Alpha 1 antitrypsin levels are within the normal range therefore that is excluded out as well. -There is a possibility that the cirrhosis is from extensive alcohol abuse. Other pending tests include; EBV virus antibody, gliadin antibody, CMV antibody, tissue transglutaminase antibody, workup for hemochromatosis Per primary team, the patient will be discharged today. Patient is advised to follow-up with infectious disease doctor Dr. Conrado Horton in the outpatient settings in 1 to 2 weeks. Prescription for Biktarvy has been sent and a written prescription has been given as well. seafood process worker has been contacted to help with the availability of the drug and insurance issues if any. Appreciate their help in this regard. Digitally Signed by JUAN JOSE QUIROS MD on 04/05/2023 11:46 AM [facility] 04-05-2023 Note Discharge Instructions Thank you for allowing [facility] to assist you with your healthcare needs. The following is important discharge information regarding your hospital visit. Your Care Team PHYSICIAN, NONE What to do next Follow Up Appointments Follow Up with ZARINA GARVEY When 04/13/2023 09:30 AM EST Why: Please arrive 15 minutes early. Bring your insurance card and your photo ID along with list of medications. The paperwork you was discharged with please also bring that with you as well . Where: [address] [place] [address]- Follow Up with NIGEL HASSAN MD When In 3 weeks Where: [address] [facility] [place] [phone] Follow Up with TONY LÓPEZ BA, MD, Infectious Disease, Infectious Disease Group When In 1 day Where: [facility] [place] [address] [place] [address]- Follow Up with Call Physician Referral When Within 1-2 days Where: The Following Activity and Diet Have Been Ordered for You Discharge Activity - Ordered -- Resume your pre-hospitalization activity, 04/05/23 12:12:00 EST Discharge Diet - Ordered -- Type of Diet: Regular, 04/05/23 12:12:00 EST The Following Equipment Has Been Ordered for You No qualifying data available. The Following Treatments Have Been Ordered for You Discharge Labs No qualifying data available. Discharge Radiology No qualifying data available. Other Therapies No qualifying data available. Post Acute Orders No qualifying data available. Someone Will Contact You Regarding These Home Health Referrals No home referrals have been ordered for you. No one will call you. Allergies NKA No Known Medication Allergies Medications Please ask your primary doctor or pharmacist before taking any other medication not listed, including over the counter drugs, herbal medications, vitamins and or supplements as they may interact with your home medications. Please take this list to your next doctor s visit. Bring all medications you take, including over the counter medications, herbals and other supplements with you to your doctor s visit. Patients and families are reminded to discard old lists and to update any records with all medication providers or retail pharmacies. Education Materials Cirrhosis Cirrhosis is long-term (chronic) liver injury. The liver is the body's largest internal organ, and it performs many functions. It converts food into energy, removes toxic material from the blood, makes important proteins, and absorbs necessary vitamins from food. In cirrhosis, healthy liver cells are replaced by scar tissue. This prevents blood from flowing through the liver, making it difficult for the liver to function. Scarring of the liver cannot be reversed, but treatment can prevent it from getting worse. What are the causes? Common causes of this condition are hepatitis C and long-term alcohol abuse. Other causes include: Nonalcoholic fatty liver disease. This happens when fat is deposited in the liver by causes other than alcohol. Hepatitis B infection. Autoimmune hepatitis. In this condition, the body's defense system (immune system) mistakenly attacks the liver cells, causing irritation and swelling (inflammation). Diseases that cause blockage of ducts inside the liver. Inherited liver diseases, such as hemochromatosis. This is one of the most common inherited liver diseases. In this disease, deposits of iron collect in the liver and other organs. Reactions to certain long-term medicines, such as amiodarone, a heart medicine. Parasitic infections. These include schistosomiasis, which is caused by a flatworm. Long-term contact to certain toxins. These toxins include certain organic solvents, such as toluene and chloroform. What increases the risk? You are more likely to develop this condition if: You have certain types of viral hepatitis. You abuse alcohol, especially if you are female. You are overweight. You share needles. You have unprotected sex with someone who has viral hepatitis. What are the signs or symptoms? You may not have any signs and symptoms at first. Symptoms may not develop until the damage to your liver starts to get worse. Early symptoms may include: Weakness and tiredness (fatigue). Changes in sleep patterns or having trouble sleeping. Itchiness. Tenderness in the right-upper part of your abdomen. Weight loss and muscle loss. Nausea. Loss of appetite. Appearance of tiny blood vessels under the skin. Later symptoms may include: Fatigue or weakness that is getting worse. Yellow skin and eyes (jaundice). Buildup of fluid in the abdomen (ascites). You may notice that your clothes are tight around your waist. Weight gain. Swelling of the feet and ankles (edema). Trouble breathing. Easy bruising and bleeding. Vomiting blood. Black or bloody stool. Mental confusion. How is this diagnosed? Your health care provider may suspect cirrhosis based on your symptoms and medical history, especially if you have other medical conditions or a history of alcohol abuse. Your health care provider will do a physical exam to feel your liver and to check for signs of cirrhosis. He or she may perform other tests, including: Blood tests to check: ? For hepatitis B or C. ? Kidney function. ? Liver function. Imaging tests such as: ? MRI or CT scan to look for changes seen in advanced cirrhosis. ? Ultrasound to see if normal liver tissue is being replaced by scar tissue. A procedure in which a long needle is used to take a sample of liver tissue to be checked in a lab (biopsy). Liver biopsy can confirm the diagnosis of cirrhosis. How is this treated? Treatment for this condition depends on how damaged your liver is and what caused the damage. It may include treating the symptoms of cirrhosis, or treating the underlying causes in order to slow the damage. Treatment may include: Making lifestyle changes, such as: ? Eating a healthy diet. You may need to work with your health care provider or a diet and patent law specialist (dietitian) to develop an eating plan. ? Restricting salt intake. ? Maintaining a healthy weight. ? Not abusing drugs or alcohol. Taking medicines to: ? Treat liver infections or other infections. ? Control itching. ? Reduce fluid buildup. ? Reduce certain blood toxins. ? Reduce risk of bleeding from enlarged blood vessels in the stomach or esophagus (varices). Liver transplant. In this procedure, a liver from a donor is used to replace your diseased liver. This is done if cirrhosis has caused liver failure. Other treatments and procedures may be done depending on the problems that you get from cirrhosis. Common problems include liver-related kidney failure (hepatorenal syndrome). Follow these instructions at home: Take medicines only as told by your health care provider. Do not use medicines that are toxic to your liver. Ask your health care provider before taking any new medicines, including [id number] medicines. Rest as needed. Eat a well-balanced diet. Ask your health care provider or dietitian for more information. Limit your salt or water intake, if your health care provider asks you to do this. Do not drink alcohol. This is especially important if you are taking acetaminophen. Keep all follow-up visits as told by your health care provider. This is important. Contact a health care provider if you: Have fatigue or weakness that is getting worse. Develop swelling of the hands, feet, legs, or face. Have a fever. Develop loss of appetite. Have nausea or vomiting. Develop jaundice. Develop easy bruising or bleeding. Get help right away if you: Vomit bright red blood or a material that looks like coffee grounds. Have blood in your stools. Notice that your stools appear black and tarry. Become confused. Have chest pain or trouble breathing. Summary Cirrhosis is chronic liver injury. Liver damage cannot be reversed. Common causes are hepatitis C and long-term alcohol abuse. Tests used to diagnose cirrhosis include blood tests, imaging tests, and liver biopsy. Treatment for this condition involves treating the underlying cause. Avoid alcohol, drugs, salt, and medicines that may damage your liver. Contact your health care provider if you develop ascites, edema, jaundice, fever, nausea or vomiting, easy bruising or bleeding, or worsening fatigue. This information is not intended to replace advice given to you by your health care provider. Make sure you discuss any questions you have with your health care provider. Document Released: 05/01/2006 Document Revised: 08/21/2019 Document Reviewed: 03/21/2018 Elsevier Patient Education 2020 [employer] Additional Information VACCINATE! IT SAVES LIVES! Members of the community who have not yet received the COVID-19 vaccine and would like to receive it can visit one of [facility] vaccine clinics. There are many vaccine clinic locations within the [facility]. For locations and available times, please visit [email or web address] It is important to note that some COVID mobile vaccine clinics are held outdoors and may be canceled in rainy or stormy conditions. To learn more about pediatric vaccinations (ages 5-11), we invite you to visit the [facility] webpage. https://www.[facility].org/ pages/4823-Jxuyi-Nyxjkajbckp-Fr ynrpxspc-Quajp-Nxycgldid.html To learn more about the COVID-19 vaccine, we invite you to visit the CDC website for a list of frequently asked questions.https://www.cdc.gov/c oronavirus/2019-ncov/vaccines/f aq.html [facility] Patient Portal Access Instructions: Stay connected with your healthcare team and access your personal medical information anytime with the [facility] Patient Portal. Please follow the directions below to create your [facility] account: 1.Access the email account you provided upon registration to the hospital/physician office.2.Look for an invitation email from [facility].3.Open the email and access the invitation link: Accept Invitation to [facility].4.Fill in the required berg to create your account. To access your account, visit [email or web address]. Click the blue button labeled Access Patient Portal and then log in with the username and password that you created in the steps above. You will be able to view your test results, lab results, a summary of your visits, upcoming appointments and more. There is also a convenient messaging option where you can send secure messages to your provider. In addition, you will have the ability to download any documents or summaries to your computer and/or send the information securely to a physician. Remember that your healthcare information is confidential, so carefully consider who you will allow to register on the [facility] Patient Portal for access to your information. You can also access the [facility] Patient Portal on the [facility] mimi. Simply click on Patient Portal and then log into your account. If you would like to receive a full copy of your medical records, please contact the [facility] Medical Records Department by calling [phone], Monday through Monday between 8 a.m. and 4:30 p.m. HOW TO SAFELY DISPOSE OF PRESCRIPTION MEDICATIONS Please use one of the following methods to safely dispose of your unused medications. 1.Use a drug disposal kit: the drug disposal pouch allows you to safely discard your old and unused drugs. Ask your nurse to give you one when you are discharged.2.Visit a local take-back location: Many local pharmacies and police departments have programs that collect old and unwanted prescription drugs. Call your local pharmacy or go to http://BlueLithium/1S3Ty2q to find one close to you.3.Make use of household items: Use cat litter or old coffee grounds to dispose medications if other options are not available. Mix your drugs with these household products, seal them in an airtight container and throw it into the garbage. Call [facility]: [phone] to be sure your drugs can be disposed of in this way. Some medicines may require a different approach.4.Never flush your medications down the toilet. IF YOU HAVE BEEN PRESCRIBED AN OPIOID FOR PAIN If you have been prescribed an opioid (such as hydrocodone, oxycodone or morphine), it is critical to understand the possible side effects and risks of opioid pain medications. Even when taken as directed, opioids can have several side effects including: Tolerance, meaning you might need to take more of a medication for the same pain relief. Nausea, vomiting and/or constipation. Sleepiness, dizziness, dry mouth, confusion, depression or itching. Physical dependence, meaning you have withdrawal symptoms when a medication is stopped, can develop within a few days. KNOW YOUR RESPONSIBILITIES It is important to know exactly how much and how often to take the opioid pain medications you are prescribed. Never take opioids in higher amounts or more often than prescribed. Do not combine opioids with alcohol or other drugs that cause drowsiness, such as benzodiazepines, also known as benzos, including diazepam and alprazolam, muscle relaxants or sleep aids. Never sell or share prescription opioids. This is illegal. Store opioids in a secure place and out of reach of others (including children, family, friends and visitors). The last page of this document has been signed and retained as a CHART COPY. Signatures Patient Education Materials Cirrhosis Medication Leaflets My discharge plan and instructions have been reviewed and explained to me and I,WILLY JAEGER understand my current condition and have read and understand these discharge instructions. I have received a written copy of the plan/instructions. If I have questions, I am aware that I should contact my doctor. 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 The following is important discharge information regarding your hospital visit. Your Care Team PHYSICIAN, NONE What to do next Follow Up Appointments Follow Up with ZARINA GARVEY When 04/13/2023 09:30 AM EST Why: Please arrive 15 minutes early. Bring your insurance card and your photo ID along with list of medications. The paperwork you was discharged with please also bring that with you as well . Where: [address] [place] [address]- Follow Up with NIGEL HASSAN MD When In 3 weeks Where: [address] [facility] [place] [address]- [phone] Follow Up with TONY LÓPEZ BA, MD, Infectious Disease, Infectious Disease Group When In 1 day Where: [facility] [place] [id number] [place] [address]- Follow Up with Call Physician Referral When Within 1-2 days Where: The Following Activity and Diet Have Been Ordered for You Discharge Activity - Ordered -- Resume your pre-hospitalization activity, 04/05/23 12:12:00 EST Discharge Diet - Ordered -- Type of Diet: Regular, 04/05/23 12:12:00 EST The Following Equipment Has Been Ordered for You No qualifying data available. The Following Treatments Have Been Ordered for You Discharge Labs No qualifying data available. Discharge Radiology No qualifying data available. Other Therapies No qualifying data available. Post Acute Orders No qualifying data available. Someone Will Contact You Regarding These Home Health Referrals No home referrals have been ordered for you. No one will call you. Allergies NKA No Known Medication Allergies Medications Please ask your primary doctor or pharmacist before taking any other medication not listed, including over the counter drugs, herbal medications, vitamins and or supplements as they may interact with your home medications. Please take this list to your next doctor s visit. Bring all medications you take, including over the counter medications, herbals and other supplements with you to your doctor s visit. Patients and families are reminded to discard old lists and to update any records with all medication providers or retail pharmacies. Education Materials Cirrhosis Cirrhosis is long-term (chronic) liver injury. The liver is the body's largest internal organ, and it performs many functions. It converts food into energy, removes toxic material from the blood, makes important proteins, and absorbs necessary vitamins from food. In cirrhosis, healthy liver cells are replaced by scar tissue. This prevents blood from flowing through the liver, making it difficult for the liver to function. Scarring of the liver cannot be reversed, but treatment can prevent it from getting worse. What are the causes? Common causes of this condition are hepatitis C and long-term alcohol abuse. Other causes include: Nonalcoholic fatty liver disease. This happens when fat is deposited in the liver by causes other than alcohol. Hepatitis B infection. Autoimmune hepatitis. In this condition, the body's defense system (immune system) mistakenly attacks the liver cells, causing irritation and swelling (inflammation). Diseases that cause blockage of ducts inside the liver. Inherited liver diseases, such as hemochromatosis. This is one of the most common inherited liver diseases. In this disease, deposits of iron collect in the liver and other organs. Reactions to certain long-term medicines, such as amiodarone, a heart medicine. Parasitic infections. These include schistosomiasis, which is caused by a flatworm. Long-term contact to certain toxins. These toxins include certain organic solvents, such as toluene and chloroform. What increases the risk? You are more likely to develop this condition if: You have certain types of viral hepatitis. You abuse alcohol, especially if you are female. You are overweight. You share needles. You have unprotected sex with someone who has viral hepatitis. What are the signs or symptoms? You may not have any signs and symptoms at first. Symptoms may not develop until the damage to your liver starts to get worse. Early symptoms may include: Weakness and tiredness (fatigue). Changes in sleep patterns or having trouble sleeping. Itchiness. Tenderness in the right-upper part of your abdomen. Weight loss and muscle loss. Nausea. Loss of appetite. Appearance of tiny blood vessels under the skin. Later symptoms may include: Fatigue or weakness that is getting worse. Yellow skin and eyes (jaundice). Buildup of fluid in the abdomen (ascites). You may notice that your clothes are tight around your waist. Weight gain. Swelling of the feet and ankles (edema). Trouble breathing. Easy bruising and bleeding. Vomiting blood. Black or bloody stool. Mental confusion. How is this diagnosed? Your health care provider may suspect cirrhosis based on your symptoms and medical history, especially if you have other medical conditions or a history of alcohol abuse. Your health care provider will do a physical exam to feel your liver and to check for signs of cirrhosis. He or she may perform other tests, including: Blood tests to check: ? For hepatitis B or C. ? Kidney function. ? Liver function. Imaging tests such as: ? MRI or CT scan to look for changes seen in advanced cirrhosis. ? Ultrasound to see if normal liver tissue is being replaced by scar tissue. A procedure in which a long needle is used to take a sample of liver tissue to be checked in a lab (biopsy). Liver biopsy can confirm the diagnosis of cirrhosis. How is this treated? Treatment for this condition depends on how damaged your liver is and what caused the damage. It may include treating the symptoms of cirrhosis, or treating the underlying causes in order to slow the damage. Treatment may include: Making lifestyle changes, such as: ? Eating a healthy diet. You may need to work with your health care provider or a diet and patent law specialist (dietitian) to develop an eating plan. ? Restricting salt intake. ? Maintaining a healthy weight. ? Not abusing drugs or alcohol. Taking medicines to: ? Treat liver infections or other infections. ? Control itching. ? Reduce fluid buildup. ? Reduce certain blood toxins. ? Reduce risk of bleeding from enlarged blood vessels in the stomach or esophagus (varices). Liver transplant. In this procedure, a liver from a donor is used to replace your diseased liver. This is done if cirrhosis has caused liver failure. Other treatments and procedures may be done depending on the problems that you get from cirrhosis. Common problems include liver-related kidney failure (hepatorenal syndrome). Follow these instructions at home: Take medicines only as told by your health care provider. Do not use medicines that are toxic to your liver. Ask your health care provider before taking any new medicines, including gyih-xzk-mznxqre medicines. Rest as needed. Eat a well-balanced diet. Ask your health care provider or dietitian for more information. Limit your salt or water intake, if your health care provider asks you to do this. Do not drink alcohol. This is especially important if you are taking acetaminophen. Keep all follow-up visits as told by your health care provider. This is important. Contact a health care provider if you: Have fatigue or weakness that is getting worse. Develop swelling of the hands, feet, legs, or face. Have a fever. Develop loss of appetite. Have nausea or vomiting. Develop jaundice. Develop easy bruising or bleeding. Get help right away if you: Vomit bright red blood or a material that looks like coffee grounds. Have blood in your stools. Notice that your stools appear black and tarry. Become confused. Have chest pain or trouble breathing. Summary Cirrhosis is chronic liver injury. Liver damage cannot be reversed. Common causes are hepatitis C and long-term alcohol abuse. Tests used to diagnose cirrhosis include blood tests, imaging tests, and liver biopsy. Treatment for this condition involves treating the underlying cause. Avoid alcohol, drugs, salt, and medicines that may damage your liver. Contact your health care provider if you develop ascites, edema, jaundice, fever, nausea or vomiting, easy bruising or bleeding, or worsening fatigue. This information is not intended to replace advice given to you by your health care provider. Make sure you discuss any questions you have with your health care provider. Document Released: 05/01/2006 Document Revised: 08/21/2019 Document Reviewed: 03/21/2018 Elsevier Patient Education 2020 [employer] Additional Information VACCINATE! IT SAVES LIVES! Members of the community who have not yet received the COVID-19 vaccine and would like to receive it can visit one of [facility] vaccine clinics. There are many vaccine clinic locations within the [facility]. For locations and available times, please visit [email or web address] It is important to note that some COVID mobile vaccine clinics are held outdoors and may be canceled in rainy or stormy conditions. To learn more about pediatric vaccinations (ages 5-11), we invite you to visit the [facility] webpage. https://www.[facility].org/ pages/9133-Pifcr-Lbzdlikyqym-Fr kyguyiwn-Dxbfm-Foqibrswa.html To learn more about the COVID-19 vaccine, we invite you to visit the CDC website for a list of frequently asked questions.https://www.cdc.gov/c oronavirus/2019-ncov/vaccines/f aq.html [facility] Patient Portal Access Instructions: Stay connected with your healthcare team and access your personal medical information anytime with the [facility] Patient Portal. Please follow the directions below to create your [facility] account: 1.Access the email account you provided upon registration to the hospital/physician office.2.Look for an invitation email from [facility].3.Open the email and access the invitation link: Accept Invitation to [facility].4.Fill in the required berg to create your account. To access your account, visit [email or web address]. Click the blue button labeled Access Patient Portal and then log in with the username and password that you created in the steps above. You will be able to view your test results, lab results, a summary of your visits, upcoming appointments and more. There is also a convenient messaging option where you can send secure messages to your provider. In addition, you will have the ability to download any documents or summaries to your computer and/or send the information securely to a physician. Remember that your healthcare information is confidential, so carefully consider who you will allow to register on the [facility] Patient Portal for access to your information. You can also access the [facility] Patient Portal on the [facility] mimi. Simply click on Patient Portal and then log into your account. If you would like to receive a full copy of your medical records, please contact the [facility] Medical Records Department by calling [phone], Monday through Monday between 8 a.m. and 4:30 p.m. HOW TO SAFELY DISPOSE OF PRESCRIPTION MEDICATIONS Please use one of the following methods to safely dispose of your unused medications. 1.Use a drug disposal kit: the drug disposal pouch allows you to safely discard your old and unused drugs. Ask your nurse to give you one when you are discharged.2.Visit a local take-back location: Many local pharmacies and police departments have programs that collect old and unwanted prescription drugs. Call your local pharmacy or go to http://BlueLithium/6Z4Xl6q to find one close to you.3.Make use of household items: Use cat litter or old coffee grounds to dispose medications if other options are not available. Mix your drugs with these household products, seal them in an airtight container and throw it into the garbage. Call [facility]: [phone] to be sure your drugs can be disposed of in this way. Some medicines may require a different approach.4.Never flush your medications down the toilet. IF YOU HAVE BEEN PRESCRIBED AN OPIOID FOR PAIN If you have been prescribed an opioid (such as hydrocodone, oxycodone or morphine), it is critical to understand the possible side effects and risks of opioid pain medications. Even when taken as directed, opioids can have several side effects including: Tolerance, meaning you might need to take more of a medication for the same pain relief. Nausea, vomiting and/or constipation. Sleepiness, dizziness, dry mouth, confusion, depression or itching. Physical dependence, meaning you have withdrawal symptoms when a medication is stopped, can develop within a few days. KNOW YOUR RESPONSIBILITIES It is important to know exactly how much and how often to take the opioid pain medications you are prescribed. Never take opioids in higher amounts or more often than prescribed. Do not combine opioids with alcohol or other drugs that cause drowsiness, such as benzodiazepines, also known as benzos, including diazepam and alprazolam, muscle relaxants or sleep aids. Never sell or share prescription opioids. This is illegal. Store opioids in a secure place and out of reach of others (including children, family, friends and visitors). The last page of this document has been signed and retained as a CHART COPY. Signatures Patient Education Materials Cirrhosis Medication Leaflets My discharge plan and instructions have been reviewed and explained to me and I,PEYTON WILLY Nguyen understand my current condition and have read and understand these discharge instructions. I have received a written copy of the plan/instructions. If I have questions, I am aware that I should contact my doctor. 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 Per patient, his diarrhea is improved. He still complains of sore throat and intermittent cough. No chest pain, abdominal pain, nausea or vomiting. Vitally stable. Objective Vitals and Measurements T: 37.0 C (Oral) TMIN: 36.7 C (Oral) TMAX: 37.0 C (Oral) HR: 105 RR: 18 BP: 115/69 SpO2: 97% Intake and Output 7AM Yesterday to 7AM Today Intake and Output (Last 24 hours) Intake Oral Intake 1340.00 Output Urine Count 2.00 Total Summary Total Intake 1340.00 Total Output 0.00 Fluid Balance 1340.00 Physical Exam General: Awake, alert, cooperative, no distress. HEENT: Head atraumatic, normocephalic. PERRLA, EOMI. Cardiovascular: Heart regular rate and rhythm Respiratory: Bilateral air entry equal, clear to auscultation Abdomen: Soft, nontender. Audible bowel sounds. Extremities: No clubbing, cyanosis. No pedal edema. Vascular: Pulses intact 4 extremities. Neurologic: No focal motor or sensory deficits Joints: Grossly normal Skin: Warm and dry Weight Dosing Weight: 73.7 kg (04/02/23) Dosing Weight: 76.9 kg (04/01/23) Medications Medications (7) Active Scheduled: (2) bictegravir/emtricitabine/tenof ovir 50 mg-200 mg-25 mg tablet 1 tab(s), Oral, qDay Misc communication order BICTEGRAVIR/EMT/TENO, Miscellaneous, qDay Continuous: (0) PRN: (5) Al hydrox/Mg hydrox/simethicone 200-200-20 mg/5 mL Susp UD 30 mL, Oral, q6h albuterol - ipratropium 2.5 mg-0.5 mg/3 mL Inhal Alyssa UD 3 mL, Inhalation, q4hRT benzocaine-menthol (Cepacol Sore Throat) 15 mg-3.6mg lozenge 1 lozenge(s), Oral, q4h dextrose 50% Solution Disp syringe 50 mL 12.5 gram(s) 25 mL, IV Push, AsDirected ondansetron 2 mg/ 1 mL 2 mL INJ 4 mg 2 mL, IV Push, q4h Lab Results 04/04 11:19 Glucose Level: 120 H Sodium Level: 134 L Potassium Level: 3.7 BUN: 12.0 Creatinine Lvl (s): 0.63 Imaging Results and Diagnostics MRI Liver Result Date: April 04, 2023 Verified By: CLINICAL STATEMENT: IMPRESSION: US Abdomen/Abd Doppler Result Date: April 03, 2023 Verified By: EVERARDO HOLLAND MD CLINICAL STATEMENT: IMPRESSION: Mildly nodular contour of the liver indicative of underlyingfibrosis/cirrhosis with mild perihepatic ascites noted. No evidence of portal venous thrombosis or hepatic vein thrombosis. Gallbladder wall thickening possibly secondary to portal venouscongestion/ascites. No other findings to suggest cholecystitis. Incidental right pleural effusion. US Paracentesis Result Date: April 03, 2023 Verified By: BILL WELLER MD CLINICAL STATEMENT: IMPRESSION: Successful ultrasound guided paracentesis This procedure was performed by Nancy Koehler PA-C. EKG No qualifying data available. Assessment/Plan HIV 1 infection Elevated HIV RNA load Hx of chronic alcoholic liver cirrhosis DVT prophylaxis CODE STATUS 62-year-old male is admitted to the hospital for abdominal distention secondary to ascites from chronic alcoholic liver cirrhosis. Infectious disease is consulted for HIV antibody being positive on 04/02/2023. Patient HIV differentiation is safe for the antibodies was sent which is consistent with active HIV-1 infection. Patient has significantly elevated HIV RNA load of [id number]. Further evaluation including CD4 helper T-cell count and HIV drug resistance testing has been sent. Will screen the patient for following infections; -Neisseria gonorrhea -Chlamydia trachomatis -Syphilis -Toxoplasma gondii -Cryptococcus Per guidelines, patient will be started on Biktarvy 1 tablet daily. Patient is advised to continue the medication for 30 days. For patient liver cirrhosis extensive workup has been ordered by GI that includes; -Acute hepatitis panel which is negative -Total hepatitis B core antibody is pending -Alpha 1 antitrypsin levels are within the normal range therefore that is excluded out as well. -There is a possibility that the cirrhosis is from extensive alcohol abuse. Other pending tests include; EBV virus antibody, gliadin antibody, CMV antibody, tissue transglutaminase antibody, workup for hemochromatosis Per primary team, the patient will be discharged today. Patient is advised to follow-up with infectious disease doctor Dr. Conrado Horton in the outpatient settings in 1 to 2 weeks. Prescription for Biktarvy has been sent and a written prescription has been given as well. seafood process worker has been contacted to help with the availability of the drug and insurance issues if any. Appreciate their help in this regard. Digitally Signed by JUAN JOSE QUIROS MD on 04/05/2023 11:46 AM [facility] 04-04-2023 Note ORIGINAL EXAMINATION: MRI OF THE ABDOMEN LIMITED WITH CONTRAST, 04/04/2023 7:30 pm TECHNIQUE: Multiplanar multisequence MRI of the abdomen limited was performed with the administration of intravenous contrast. Liver protocol. COMPARISON: Ultrasound abdomen 04/03/2023, CT abdomen pelvis 04/01/2023 HISTORY: ORDERING SYSTEM PROVIDED HISTORY: Reason for Exam: rule out mass FINDINGS: The liver is enlarged without significant nodularity. Chemical shift imaging is unremarkable. Diffusion-weighted imaging is unremarkable. Mildly heterogeneous enhancement of the liver on the arterial phase postcontrast images, suggestive of a hepatocellular disease. No focal hepatic lesion or focal abnormal enhancement. The spleen is enlarged. There is moderate volume fluid signal throughout the visualized abdomen. The portal vein is patent but dilated measuring up to 1.9 cm. The gallbladder is contracted, with mild wall prominence. No bile duct dilatation. The pancreas, adrenal glands and kidneys are unremarkable. There is a small hiatal hernia. Otherwise the visualized GI tract is noncontributory. Small right pleural effusion. IMPRESSION: Hepatomegaly with findings suggestive of diffuse hepatocellular disease. No focal hepatic lesion or abnormal focal enhancement. Splenomegaly and dilated main portal vein suggest portal hypertension. Moderate volume ascites and small right pleural effusion. Nonspecific gallbladder wall thickening which could be secondary to ascites or portal venous congestion. I have personally reviewed the images of this examination and agree with the resident's finding and interpretation. Interpreted by: Yoandy Pierce MD Preliminary Report By: Jagruti Mulligan Electronically signed By Yoandy Pierce MD Dictated Date: 04/04/2023 8:06:51 PM Prelim Date: 04/04/2023 8:20:42 PM Sign Date: 04/05/2023 4:03:13 PM Ordering Provider: [facility] 04-04-2023 Progress note Date of Service 04/04/2023 Subjective Patient was seen and examined earlier this morning at bedside. Complains of intermittent cough and phlegm production. No chest pain, abdominal pain. Also complains of chronic diarrhea. Is vitally stable. Objective Vitals and Measurements T: 36.9 C (Oral) TMIN: 36.7 C (Oral) TMAX: 36.9 C (Oral) HR: 106 RR: 18 BP: 121/76 SpO2: 97% Intake and Output 7AM Yesterday to 7AM Today Intake and Output (Last 24 hours) Intake Oral Intake 1114.00 Output Stool Count 0.00 Urine Count 2.00 Total Summary Total Intake 1114.00 Total Output 0.00 Fluid Balance 1114.00 Physical Exam General: Awake, alert, cooperative, no distress. HEENT: Head atraumatic, normocephalic. PERRLA, EOMI. Cardiovascular: Heart regular rate and rhythm Respiratory: Bilateral air entry equal, clear to auscultation Abdomen: Soft, nontender. Audible bowel sounds. Extremities: No clubbing, cyanosis. No pedal edema. Vascular: Pulses intact 4 extremities. Neurologic: No focal motor or sensory deficits Joints: Grossly normal Skin: Warm and dry Weight Dosing Weight: 73.7 kg (11/19/23) Dosing Weight: 76.9 kg (04/01/23) Medications Medications (4) Active Scheduled: (0) Continuous: (0) PRN: (4) albuterol - ipratropium 2.5 mg-0.5 mg/3 mL Inhal Alyssa UD 3 mL, Inhalation, q4hRT benzocaine-menthol (Cepacol Sore Throat) 15 mg-3.6mg lozenge 1 lozenge(s), Oral, q4h dextrose 50% Solution Disp syringe 50 mL 12.5 gram(s) 25 mL, IV Push, AsDirected ondansetron 2 mg/ 1 mL 2 mL INJ 4 mg 2 mL, IV Push, q4h Lab Results 04/03 05:22 WBC: 6.3 Hgb: 10.0 L Hct: 28.2 L Platelet: 179 Neutrophil %: 56.0 Glucose Level: 93 Sodium Level: 137 Potassium Level: 3.3 L BUN: 14.0 Creatinine Lvl (s): 0.74 Imaging Results and Diagnostics US Abdomen/Abd Doppler Result Date: April 03, 2023 Verified By: EVERARDO HOLLAND MD CLINICAL STATEMENT: IMPRESSION: Mildly nodular contour of the liver indicative of underlyingfibrosis/cirrhosis with mild perihepatic ascites noted. No evidence of portal venous thrombosis or hepatic vein thrombosis. Gallbladder wall thickening possibly secondary to portal venouscongestion/ascites. No other findings to suggest cholecystitis. Incidental right pleural effusion. US Paracentesis Result Date: April 03, 2023 Verified By: BILL WELLER MD CLINICAL STATEMENT: IMPRESSION: Successful ultrasound guided paracentesis This procedure was performed by Nancy Koehler PA-C. EKG EKG - Completed -- 04/02/23 2:29:00 EST Assessment/Plan Positive HIV antibody Hx of chronic alcoholic liver cirrhosis DVT prophylaxis CODE STATUS 62-year-old male is admitted to the hospital for abdominal distention secondary to ascites from chronic alcoholic liver cirrhosis. Infectious disease is consulted for HIV antibody being positive on 04/02/2023. Acute hepatitis panel is negative. Total Hepatitis B core antibody is pending. Plan HIV quantitative RNA by PCR is pending. HIV antibody differentiation is also pending. Will follow-up on the results. GI following for evaluation and workup for liver cirrhosis. Infectious disease will continue to follow. Digitally Signed by JUAN JOSE QUIROS MD on 04/04/2023 02:12 PM [facility] 04-04-2023 Note Subjective: Patient seen for chronic alcoholic liver cirrhosis and ascites patient was examined and evaluated today, patient denies chest pain, no shortness of breath, no cough, no fever or chills, no abdominal pain, no nausea or vomiting, no headache, tolerating po well, bowel movement is normal, feels weak tired and fatigued. Vitals Signs(Last 24 hrs)__Last Charted Minimum _Maximum Temp36.9(APR 04:)36.9(APR 04:)36.7(APR 03:) Resp Rate18(APR 04:)18(APR 03:39)18(APR 03:39) CSO581(APR 04:)104(APR 03:39)126(APR 03:42) DBP76(APR 04:)63(APR 03:39)79(APR 03:42) Physical examination: HEENT, is atraumatic normocephalic, pupils are equal, positive pallor, positive icterus Neck supple no JVD Lungs clear to auscultation bilaterally, no wheezes, no rhonchi, no accessory muscle use Heart S1-S2 regular Abdomen soft nontender, distended, bowel sounds are present all 4 quadrants Lower extremities show no edema, no cyanosis, pulses palpable +2 bilaterally Skin showed no rash Neurological examination patient is awake alert and oriented 3, cranial nerves are grossly intact, no focal neurological defect could be appreciated Assessment and plan: 1. Chronic alcoholic liver cirrhosis with ascites. 2. Status post paracentesis. 3. History of alcohol use. 4. Anemia, likely due to alcoholic liver cirrhosis. 5. Elevated lipase. 6. Hypocalcemia. 7. Esophageal wall thickening, requiring EGD as an outpatient. 8. Hyper bilirubinemia, transaminitis. 9. Hypokalemia. 10. HIV positive. Plan: 1. There was no labs from today so I did order labs to check on the potassium and that has normalized, potassium today is 3.7. 2. Waiting on the MRI of the liver. 3. Follow-up further recommendations from infectious disease team regarding the HIV testing. 4. Patient understood his plan of care all his questions were answered, his concerns were addressed, he declined my offer to call his family stating that he will update the family by himself. Labs: Basic Metabolic Profile Glucose Level: 120 mg/dL High (04/04/23 11:19:00) Sodium Level: 134 mEq/L Low (04/04/23 11:19:00) Potassium Level: 3.7 mEq/L (04/04/23 11:19:00) Chloride: 107 mEq/L (04/04/23 11:19:00) CO2: 22 mEq/L (04/04/23 11:19:00) BUN/Creatinine Ratio: 19 ratio (04/04/23 11:19:00) No qualifying data available.Medications (4) Active Scheduled: (0) Continuous: (0) PRN: (4) albuterol - ipratropium 2.5 mg-0.5 mg/3 mL Inhal Alyssa UD 3 mL, Inhalation, q4hRT benzocaine-menthol (Cepacol Sore Throat) 15 mg-3.6mg lozenge 1 lozenge(s), Oral, q4h dextrose 50% Solution Disp syringe 50 mL 12.5 gram(s) 25 mL, IV Push, AsDirected ondansetron 2 mg/ 1 mL 2 mL INJ 4 mg 2 mL, IV Push, q4h Signature: Nathalie Cleveland MD Digitally Signed by NATHALIE CLEVELAND MD on 04/04/2023 12:28 PM [facility] 04-04-2023 Progress note Date of Service 04/04/2023 Subjective Patient was seen and examined earlier this morning at bedside. Complains of intermittent cough and phlegm production. No chest pain, abdominal pain. Also complains of chronic diarrhea. Is vitally stable. Objective Vitals and Measurements T: 36.9 C (Oral) TMIN: 36.7 C (Oral) TMAX: 36.9 C (Oral) HR: 106 RR: 18 BP: 121/76 SpO2: 97% Intake and Output 7AM Yesterday to 7AM Today Intake and Output (Last 24 hours) Intake Oral Intake 1114.00 Output Stool Count 0.00 Urine Count 2.00 Total Summary Total Intake 1114.00 Total Output 0.00 Fluid Balance 1114.00 Physical Exam General: Awake, alert, cooperative, no distress. HEENT: Head atraumatic, normocephalic. PERRLA, EOMI. Cardiovascular: Heart regular rate and rhythm Respiratory: Bilateral air entry equal, clear to auscultation Abdomen: Soft, nontender. Audible bowel sounds. Extremities: No clubbing, cyanosis. No pedal edema. Vascular: Pulses intact 4 extremities. Neurologic: No focal motor or sensory deficits Joints: Grossly normal Skin: Warm and dry Weight Dosing Weight: 73.7 kg (04/02/23) Dosing Weight: 76.9 kg (04/01/23) Medications Medications (4) Active Scheduled: (0) Continuous: (0) PRN: (4) albuterol - ipratropium 2.5 mg-0.5 mg/3 mL Inhal Alyssa UD 3 mL, Inhalation, q4hRT benzocaine-menthol (Cepacol Sore Throat) 15 mg-3.6mg lozenge 1 lozenge(s), Oral, q4h dextrose 50% Solution Disp syringe 50 mL 12.5 gram(s) 25 mL, IV Push, AsDirected ondansetron 2 mg/ 1 mL 2 mL INJ 4 mg 2 mL, IV Push, q4h Lab Results 04/03 05:22 WBC: 6.3 Hgb: 10.0 L Hct: 28.2 L Platelet: 179 Neutrophil %: 56.0 Glucose Level: 93 Sodium Level: 137 Potassium Level: 3.3 L BUN: 14.0 Creatinine Lvl (s): 0.74 Imaging Results and Diagnostics US Abdomen/Abd Doppler Result Date: April 03, 2023 Verified By: EVERARDO HOLLAND MD CLINICAL STATEMENT: IMPRESSION: Mildly nodular contour of the liver indicative of underlyingfibrosis/cirrhosis with mild perihepatic ascites noted. No evidence of portal venous thrombosis or hepatic vein thrombosis. Gallbladder wall thickening possibly secondary to portal venouscongestion/ascites. No other findings to suggest cholecystitis. Incidental right pleural effusion. US Paracentesis Result Date: April 03, 2023 Verified By: BILL WELLER MD CLINICAL STATEMENT: IMPRESSION: Successful ultrasound guided paracentesis This procedure was performed by Nancy Koehler PA-C. EKG EKG - Completed -- 04/02/23 2:29:00 EST Assessment/Plan Positive HIV antibody Hx of chronic alcoholic liver cirrhosis DVT prophylaxis CODE STATUS 62-year-old male is admitted to the hospital for abdominal distention secondary to ascites from chronic alcoholic liver cirrhosis. Infectious disease is consulted for HIV antibody being positive on 04/02/2023. Acute hepatitis panel is negative. Total Hepatitis B core antibody is pending. Plan HIV quantitative RNA by PCR is pending. HIV antibody differentiation is also pending. Will follow-up on the results. GI following for evaluation and workup for liver cirrhosis. Infectious disease will continue to follow. Digitally Signed by JUAN JOSE QUIROS MD on 04/04/2023 02:12 PM [facility] 04-04-2023 Note # of Blocks: 1 # of Monolayers: 1 Volume (ml) 60 Color: [facility] 04-04-2023 Note # of Blocks: 1 # of Monolayers: 1 Volume (ml) 60 Color: [facility] 04-04-2023 Note # of Blocks: 1 # of Monolayers: 1 Volume (ml) 60 Color: [facility] 04-04-2023 Note # of Blocks: 1 # of Monolayers: 1 Volume (ml) 60 Color: [facility] 04-04-2023 Note # of Blocks: 1 # of Monolayers: 1 Volume (ml) 60 Color: [facility] 04-04-2023 Note # of Blocks: 1 # of Monolayers: 1 Volume (ml) 60 Color: [facility] 04-03-2023 Note Date of Service 04/03/23 Chief Complaint liver cirrhosis Subjective 62-year-old male with a past medical history consistent with alcohol abuse, presents with a chief complaint of abdominal distention. ultrasound-guided paracentesis was performed, 2500 cc fluid removed. Doppler showed Mildly nodular contour of the liver indicative of underlying fibrosis/cirrhosis with mild perihepatic ascites noted. No evidence of portal venous thrombosis or hepatic vein thrombosis. GI is consulted who recommends MRI of Liver, aFP ordered; he is test positive for HIV, ID is consulted, more lab works were sent. Pt was seen and examined, abd distention improved. Objective Vitals and Measurements T: 36.8 C (Oral) TMIN: 36.7 C (Oral) TMAX: 37.1 C (Oral) HR: 93 RR: 18 BP: 126/79 SpO2: 96% Intake and Output 7AM Yesterday to 7AM Today Intake and Output (Last 24 hours) Intake Oral Intake 1124.00 Output Stool Count 1.00 Urine Count 4.00 Total Summary Total Intake 1124.00 Total Output 0.00 Fluid Balance 1124.00 Physical Exam Gen: Appears comfortable, not in distress. HEENT: No pallor, no icterus, neck supple. Lungs: Diminished breath sounds. no wheezing CVS: S1-S2 regular rate and rhythm, no murmur noted Abd: Soft, distended, nontender, bowel sounds noted, no organomegaly Ext: Pulses symmetric, no edema Skin: No rash, no nodules Neuro: Alert, no focal deficits. Weight Dosing Weight: 73.7 kg (04/02/23) Dosing Weight: 76.9 kg (04/01/23) Medications Medications (4) Active Scheduled: (0) Continuous: (0) PRN: (4) albuterol - ipratropium 2.5 mg-0.5 mg/3 mL Inhal Alyssa UD 3 mL, Inhalation, q4hRT benzocaine-menthol (Cepacol Sore Throat) 15 mg-3.6mg lozenge 1 lozenge(s), Oral, q4h dextrose 50% Solution Disp syringe 50 mL 12.5 gram(s) 25 mL, IV Push, AsDirected ondansetron 2 mg/ 1 mL 2 mL INJ 4 mg 2 mL, IV Push, q4h Lab Results 04/03 05:22 WBC: 6.3 Hgb: 10.0 L Hct: 28.2 L Platelet: 179 Neutrophil %: 56.0 Glucose Level: 93 Sodium Level: 137 Potassium Level: 3.3 L BUN: 14.0 Creatinine Lvl (s): 0.74 EKG EKG - Completed -- 04/02/23 2:29:00 EST Assessment/Plan Chronic alcoholic liver cirrhosis with ascites s/p ultrasound-guided paracentesis was performed, 2500 cc fluid removed. Doppler showed Mildly nodular contour of the liver indicative of underlying fibrosis/cirrhosis with mild perihepatic ascites noted. No evidence of portal venous thrombosis or hepatic vein thrombosis. History of alcohol abuse, no sign of withdrawal. Anemia, due to alcoholic liver cirrhosis. Elevated lipase, no abd pain. Hypocalcemia Esophageal wall thickening Hyperbilirubinemia, Transaminitis, Elevated alk phos Hypokalemia, K+ 3.3 will replaced. HIV+, ID consulted. Digitally Signed by CHASE COSME MD on 04/04/2023 02:11 AM [facility] 04-03-2023 Note ORIGINAL PROCEDURE: ULTRASOUND GUIDED PARACENTESIS CLINICAL STATEMENT: Patient is a 62-year-old male with past medical history of jaundice and ascites who presents for ultrasound-guided paracentesis. SITE: RUQ FLUID REMOVED: 2500 cc FLUID COLOR: Yellow serous DISPOSITION OF FLUID: Sent to lab CATHETER/NEEDLE: 5 Fr centesis catheter needle The procedure, risks, limitations, and alternatives were discussed. All questions were answered. Written informed consent obtained. Accompanying paperwork was verified for accuracy. Directed history and physical exam performed prior to the procedure. Medication reconciliation was performed by nursing personnel. Procedure was performed using a cap, sterile gloves, a sterile drape, sterile probe cover and sterile gel, hand hygiene and hospital-approved cutaneous antisepsis. Ultrasound survey demonstrates ascites. 2% lidocaine was administered at the puncture site for local anesthesia. The centesis catheter needle was advanced into the fluid under real-time sonographic guidance. After removal of the needle, the catheter was attached to vacuum system and 2500 mL yellow serous fluid removed. The catheter was removed once no additional fluid could be removed. Dressing applied. Postprocedure images obtained. Patient tolerated the procedure well. COMPLICATIONS: None EBL: None PATIENT CONDITION: Stable, unchanged. IMPRESSION: Successful ultrasound guided paracentesis This procedure was performed by Nancy Koehler PA-C. Interpreted by: Bill Weller MD Preliminary Report By: Nancy Koehler Electronically signed By Bill Weller MD Dictated Date: 04/03/2023 4:41:43 PM Prelim Date: 04/03/2023 4:42:36 PM Sign Date: 04/03/2023 4:46:39 PM Ordering Provider: TERESE MCCARTNEY [facility] ([place]) 11-20-2023 Infectious diseas e Consult note Date of Service 04/03/2023 Reason for Consultation Positive serology for HIV Referring Physician Dr Cosme History of Present Illness Patient is a 62-year-old male with past medical history of alcohol consumption presented to the emergency room on 04/01/2023 for increased abdominal distention, and noted to have multiple laboratory abnormalities including abnormal LFTs with alk phos 733 on presentation AST 203 total bilirubin of 10.2 lipase of 80 elevated alk phos and elevated GGT. Patient had a CT scan of abdomen and pelvis obtained which showed large ascites splenomegaly nodular contour of the liver representing cirrhosis. Patient underwent IR guided paracentesis whereby 2.5 L of yellow serous fluid obtained and sent to the lab culture obtained no growth. Gastroenterology service on board to work-up for cirrhosis. As part of work-up patient had HIV testing obtained patient has had an HIV 1 2 antibody obtained which is preliminary reactive while HIV-1/HIV-2 antibody confirmation and differentiation assay is still pending. ID hence consulted. Patient denies having any IV drug use history however he vapes. 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 He is previously sexually active but has no known sexual exposures to anyone with HIV. He reports that he has been sick this past November. He has progressively lost weight. Review of Systems 12 point review of systems is reviewed and is negative except for noted above. Physical Exam Vitals and Measurements T: 36.7 C (Oral) TMIN: 36.5 C (Oral) TMAX: 37.1 C (Oral) HR: 95 RR: 18 BP: 104/63 SpO2: 95% HT: 177.8 cm WT: 73.7 kg Weight Dosing Weight: 73.7 kg (04/02/23) Dosing Weight: 76.9 kg (04/01/23) General Appearance: Patient is laying in the bed not in any apparent distress alert and awake jaundiced HEENT: Atraumatic normocephalic, EOMI sclerae icteric Neck: Neck supple oral mucosa moist Cardiac: first and second heart sounds audible Lungs: Clear to auscultation bilaterally Abdomen: Soft nontender nondistended bowel sounds positive Extremities: No lower extremity edema Neurological: Grossly non focal Skin: Jaundice Lab Results 04/03 05:22 WBC: 6.3 Hgb: 10.0 L Hct: 28.2 L Platelet: 179 Neutrophil %: 56.0 Glucose Level: 93 Sodium Level: 137 Potassium Level: 3.3 L BUN: 14.0 Creatinine Lvl (s): 0.74 04/02 09:39 Protime: 24.6 H PT International Ratio: 2.1 Glucose Level: 77 L Sodium Level: 131 L Potassium Level: 3.3 L BUN: 11.0 Creatinine Lvl (s): 0.69 Imaging Results and Diagnostics US Abdomen/Abd Doppler Result Date: April 03, 2023 Verified By: EVERARDO HOLLAND MD CLINICAL STATEMENT: IMPRESSION: Mildly nodular contour of the liver indicative of underlyingfibrosis/cirrhosis with mild perihepatic ascites noted. No evidence of portal venous thrombosis or hepatic vein thrombosis. Gallbladder wall thickening possibly secondary to portal venouscongestion/ascites. No other findings to suggest cholecystitis. Incidental right pleural effusion. US Paracentesis Result Date: April 03, 2023 Verified By: BILL WELLER MD CLINICAL STATEMENT: IMPRESSION: Successful ultrasound guided paracentesis This procedure was performed by Nancy Koehler PA-C. EKG EC04/02/23: Sinus tachycardia Electronic Signature: SAQIB GIFFORD MD 04/03/2023 14:34:27 Assessment/Plan Orders: HIV Quant RNA by PCR Patient is a 62-year-old male who is currently admitted to hospitalist service for evaluation of cirrhosis. As part of work-up patient has had HIV testing performed which is preliminary positive, HIV 1 and HIV 2 antibody confirmation and differentiation assay is pending. Recommend obtaining HIV quant. Gastroenterology service on board for evaluation and work-up of cirrhosis. Will follow results. Hepatitis panel is negative we will check hepatitis B total core antibody as well. ID service will continue to follow. Problem List/Past Medical History Ongoing No qualifying data Historical No qualifying data Procedure/Surgical History No qualifying data available. Medications Inpatient Cepacol Sore Throat Pain Relief [place] 15 mg-2.1 mg mucous membrane lozenge, 1 lozenge(s), Oral, q4h, PRN Dextrose 50% IV Push, 12.5 gram(s)= 25 mL, IV Push, AsDirected, PRN DuoNeb, 3 mL, Inhalation, q4hRT, PRN PHARMACY TO DOSE, 1 EA, Miscellaneous, qDay Zofran, 4 mg= 2 mL, IV Push, q4h, PRN Home No active home medications Allergies NKA No Known Medication Allergies Immunizations No qualifying data available. Digitally Signed by JOYA OLIVEROS MD on 04/03/2023 06:22 PM [facility] 04-03-2023 Gastroenterology Progress note Date of Service 04/03/23 Subjective We are assuming care from [facility] GI provider Dr. Vogel for Mr. Jaeger who is currently being evaluated for cirrhosis with ascites. Per review of documentation by hospitalist patient states that he used to drink up to 3 beers a day. When I asked him he states he drinks maybe 3 beers a year. 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 He has never been evaluated post needlestick per his report. Patient is noted to have elevated INR at 2.1, as of 04/02/2023 total bilirubin was 11.7, alk phos 694, AST 242, ALT 50 with GGT 393 iron saturation of 53% with low TIBC noted. Acetaminophen level as well as drug screen negative. Acute hepatitis panel negative but found to be HIV antibody reactive alpha-[address] abdomen and pelvis showed a small right pleural effusion moderate emphysema multiple pulmonary nodules large amount of abdominal/pelvic ascites with slightly nodular contour to the liver splenomegaly moderate distal esophageal wall thickening and a mildly enlarged portocaval lymph node at 1.2 cm[address] review of Dr[address] Vogel's documentation it was recommended that the patient undergo an MRI of the liver with and without IV contrast, it was also recommended that an ID consult be placed for positive HIV labs. Per chart review neither of these recommendations have been executed. Pending labs that of been ordered hemochromatosis, mitochondrial antibody smooth muscle antibody antinuclear antibody, hepatitis B core antibody, hepatitis A antibody, HIV antibody, ceruloplasmin Objective Vitals and Measurements T: 37.1 C (Oral) TMIN: 36.5 C (Oral) TMAX: 37.1 C (Oral) HR: 102 RR: 18 BP: 114/61 SpO2: 94% HT: 177.8 cm WT: 73.7 kg Intake and Output 7AM Yesterday to 7AM Today Intake and Output (Last 24 hours) Intake Oral Intake 250.00 Output Stool Count 1.00 Urine Count 2.00 Total Summary Total Intake 250.00 Total Output 0.00 Fluid Balance 250.00 Physical Exam General: Awake, alert, sitting up at bedside, in no acute distress EENT: Bilateral scleral icterus Abdomen: Soft, non-tender, non-distended; bowel sounds active x 4 quadrants; no rebound, rigidity, guarding. Neurologic: No focal weakness observed. Skin: Jaundiced Weight Dosing Weight: 73.7 kg (04/02/23) Dosing Weight: 76.9 kg (04/01/23) Medications Medications (6) Active Scheduled: (2) paracentesis PATIENT RETURN 1 EA, Miscellaneous, q8hr Pharmacy To Dose 1 EA, Miscellaneous, qDay Continuous: (0) PRN: (4) albuterol - ipratropium 2.5 mg-0.5 mg/3 mL Inhal Alyssa UD 3 mL, Inhalation, q4hRT benzocaine-menthol (Cepacol Sore Throat) 15 mg-3.6mg lozenge 1 lozenge(s), Oral, q4h dextrose 50% Solution Disp syringe 50 mL 12.5 gram(s) 25 mL, IV Push, AsDirected ondansetron 2 mg/ 1 mL 2 mL INJ 4 mg 2 mL, IV Push, q4h Lab Results 04/03 05:22 WBC: 6.3 Hgb: 10.0 L Hct: 28.2 L Platelet: 179 Neutrophil %: 56.0 Glucose Level: 93 Sodium Level: 137 Potassium Level: 3.3 L BUN: 14.0 Creatinine Lvl (s): 0.74 04/02 09:39 Protime: 24.6 H PT International Ratio: 2.1 Glucose Level: 77 L Sodium Level: 131 L Potassium Level: 3.3 L BUN: 11.0 Creatinine Lvl (s): 0.69 04/02 00:54 WBC: 6.2 Hgb: 10.4 L Hct: 30.1 L Platelet: 191 Neutrophil %: 46.9 L Glucose Level: 94 Sodium Level: 134 L Potassium Level: 3.5 BUN: 8.0 Creatinine Lvl (s): 0.56 L EKG No qualifying data available. Assessment/Plan Orders: AFP tumor marker Alkaline Phosphatase Isoenzyme Cytomegalovirus Antibody Nallely Andrade Virus Antibody Titer Gliadin Antibody Liver Kidney Microsome IgG Autoabs Protein Electrophoresis Panel Tissue Transglutaminase Ab (IGA) Jaundice, elevated total bilirubin and elevated liver enzymes Patient denies habitual alcohol consumption contrary to what is documented in H&P upon my questioning. 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 He has been found to be HIV positive which per review of prior documentation by [facility] GI provider was recommended that ID consultation be sought as well as patient have an MRI of the liver with and without contrast, per chart review this has not been completed to date. We will check AFP, alkaline phosphatase isoenzyme, cytomegalovirus and Nallely-Andrade titers, celiac sprue serology liver kidney, serum protein electrophoresis, await pending labs as well. Would reiterate recommendations for MRI of liver with and without contrast as well as ID consultation that were previously given by [facility] provider. We can follow pending imaging and lab studies as an outpatient, will sign off call back as needed. In regards to esophageal wall thickening noted on CAT scan recommend outpatient EGD. Digitally Signed by CINDY SALDIVAR on 04/03/2023 11:40 AM Digitally Signed by CINDY SALDIVAR on 04/03/2023 12:09 PM Digitally Signed by NIGEL HASSAN MD on 04/04/2023 07:39 AM [facility] 04-03-2023 Note ORIGINAL EXAMINATION: COMPLETE ABDOMINAL ULTRASOUND 04/03/2023 10:11 am COMPARISON: Prior CT of the abdomen and pelvis dated 04/01/2023. HISTORY: ORDERING SYSTEM PROVIDED HISTORY: Reason for Exam: Ascites, cirrhosis, abnormal liver function test, rule out portal vein and hepatic vein thrombosis FINDINGS: LIVER: The liver demonstrates a mildly nodular contour indicative of underlying fibrosis/cirrhosis. Underlying echogenicity is normal echogenicity without evidence of intrahepatic biliary ductal dilatation. There is trace perihepatic ascites noted. There is normal hepatopetal flow of the portal veins. The hepatic veins are patent. The main hepatic artery demonstrates normal flow. BILIARY SYSTEM: Gallbladder demonstrates wall thickening however this may be secondary to nondistention as well as portal venous congestion/ascites. No cholelithiasis is seen. Negative sonographic Thomas's sign. Common bile duct is within normal limits measuring 5 mm. KIDNEYS: The right kidney is unremarkable in appearance without evidence of hydronephrosis. PANCREAS: Visualized portions of the pancreas are unremarkable. The splenic vein posterior to the pancreas is patent with normal flow. IVC: The IVC is patent. AORTA: Not well seen due to overlying bowel gas. Other: Incidental note of a right pleural effusion. IMPRESSION: Mildly nodular contour of the liver indicative of underlying fibrosis/cirrhosis with mild perihepatic ascites noted. No evidence of portal venous thrombosis or hepatic vein thrombosis. Gallbladder wall thickening possibly secondary to portal venous congestion/ascites. No other findings to suggest cholecystitis. Incidental right pleural effusion. Interpreted by: Everardo Holland MD Preliminary Report By: Everardo Holland MD Electronically signed By Everardo Holland MD Dictated Date: 04/03/2023 11:57:43 AM Prelim Date: 04/03/2023 12:05:00 PM Sign Date: 04/03/2023 12:05:00 PM Ordering Provider: [facility] 04-03-2023 Note US Procedure Record Summary Primary Physician: Finalized Date/Time: 04/03/23 08:57:15 Pt. Name: PEYTONWILLY D.O.B./Sex: 1960 Male Med Rec #: [id number] Physician: TERESE MCCARTNEY DO Financial #: [id number] Pt. Type: I Room/Bed: [facility]/A Admit/Disch: 04/01/23 23:45:00 - Institution: Allergies identified in patient's electronic medical record at time of printing on 04/03/23 Entry 1 Entry 2 Substance NKA No Known Medication Allergies Reaction Type Allergy Allergy Last Modified By: Lee Alicea LPN, Jacity L LPN 04/01/23 23:59:36 04/01/23 23:58:54 Case Attendance- US Entry 1 Entry 2 Entry 3 Case Attendee BRI BAILEY PA-C, KAYLA M PA-C Denning, Brooke M Role Performed Radiology PA/RA Radiology PA/RA Billboard Installer Details Time In 04/03/23 08:18:00 04/03/23 08:15:00 04/03/23 08:15:00 Time Out 04/03/23 08:38:00 04/03/23 08:38:00 04/03/23 09:00:00 Procedure/Preference US Paracentesis (SN) US Paracentesis (SN) US Paracentesis (SN) Card Last Modified By: Samantha Moya Brooke M Denning, Brooke M 04/03/23 08:56:53 04/03/23 08:56:53 04/03/23 08:56:53 Radiology Procedures- US Entry 1 Procedure/Preference US Paracentesis (SN) Actual Procedure US Paracentesis Card Primary Procedure Yes Primary Surgeon BRI BAILEY PA-C Anesthesia/Sedation Local Type Additional Procedure Times Start 04/03/23 08:26:00 Stop 04/03/23 08:54:00 Specialty Service SN Radiology Procedure EBL 0 mL Last Modified By: Samantha Moya 04/03/23 08:56:59 Cultures and Specimens- US Entry 1 Kind Specimen Type Fluid Last Modified By: Samantha Moya 04/03/23 08:39:50 General Case Data- US Entry 1 Case Information Room [facility] Receiving Case Level None Wound Class None Specialty SN Radiology Procedure ASA Class None Diagnosis Preop Diagnosis ASCITES Postop Same As Preop Yes Postop Diagnosis ASCITES Last Modified By: Samantha Moya 04/03/23 08:40:22 Medication Administration- US Entry 1 Medication 2% Lidocaine Route of Admin Local Volume 10 mL VORB Administered by Yes Administered by: NANCY KOEHLER PA-C Physician? Last Modified By: Samantha Moya 04/03/23 08:39:34 Case Times- US Entry 1 Patient In Procedure Patient In OR 04/03/23 08:15:00 Patient Out of OR 04/03/23 09:00:00 Procedure Start/Stop Procedure Start Time 04/03/23 08:26:00 Procedure Stop Time 04/03/23 08:54:00 Last Modified By: Samantha Moya 04/03/23 08:56:49 Immediate Post Procedure Note- US Entry 1 Immediate Post Yes Procedure Note displayed for Physician to review Closure Technique Closure Technique Other than Primary Last Modified By: Samantha Moya 04/03/23 08:38:06 Immediate Post Procedure Note- US Signed By: NANCY KOEHLER PA-C 04/03/23 08:44 Allergy Information- US Entry 1 Allergies Reviewed? Yes Allergies Reviewed Patient With Last Modified By: Samantha Moya 04/03/23 08:32:15 Radiology Protocols/Time Out- US Entry 1 Preprocedure Clinician Verifies Correct patient ID When Clinically Confirmation of correct using name & date Indicated side(s) and site(s), or MRN, Accurate Correct diagnostic and procedure, complete radiology tests Informed Consent, H & P available update immediately prior to procedure, if applicable, Sync button on OR/Procedure Room/Bedside Time 04/03/23 08:25:00 Clinician Verifies Correct patient identity including EMR & records using name and date or medical record number, Accurate procedure consent form, Correct patient position, Necessary equipment is available When Applicable Confirmation correct Team Members NANCY KOEHLER PA-C, side and site marked, Present for Time Out Samantha Moya, Relevant images and BRI BAILEY PA-C results are properly labeled and appropriately displayed, Alcohol based prep dry Instrument Sterility Procedure US Paracentesis (SN) Last Modified By: Samantha Moya 04/03/23 08:40:42 Skin Prep - US Entry 1 Procedure US Paracentesis (SN) Skin Prep Prep Area Abdomen Side Right By NANCY KOEHLER PA-C Prep Agents Chloraprep Hair Removal Method N/A Last Modified By: Samantha Moya 04/03/23 08:40:43 Patient Positioning- US Entry 1 Procedure US Paracentesis (SN) Body Position OP Supine Feet Uncrossed? Yes Pressure Points Yes Checked Last Modified By: Samantha Moya 04/03/23 08:40:42 Radiology Procedure Plan - US Entry 1 Radiology - Nursing Care Plan Radiology - Action Plan Action Plan - Patient demonstrates Outcome Statement knowledge of the expected reseponses to the invasive procedure, Patient's value system, lifestyle, ethnicity, and culture are considered, respected, and incorporated in the perioperative plan of care., Patient is free from signs and symptoms of infection., Patient is free from signs and symptoms of injury related to positioning., Patient is free from signs and symptoms of electrical injury. Outcomes Met? Yes Machining Technician NANCY KOEHLER PA-C, Completing Samantha Moya Procedure Plan Last Modified By: Samantha Moya 04/03/23 08:40:05 Radiology Lines and Procedures- US Entry 1 Radiology Sedation Case Times Sedation Total Time 0 Radiology - Fluid/Drainage Fluid Amount mL: 2500 Fluid Description yellow serous RAD - US [place], Guidewires, Cath.... Catheters M-Drain Centesis Miscellaneous Items Merit Tray Catheter 5 Fr x 10 cm Radiology Urinary Catheter Radiology Procedure Site Site Condition No complications Dressing Type Bandaids Last Modified By: Samantha Moya 04/03/23 08:57:12 Transfer Post Procedure- US Entry 1 RAD - Transport to Recovery Via Patient Bed Post-op Destination Patient Room Post Procedure Time Out Double Verification Yes Date/Time Verified 04/03/23 09:00:00 of ID band on patient Completed Verfied ID Band on Samantha Moya by Last Modified By: Samantha Moya 04/03/23 08:41:07 Case Comments Finalized By: Samantha Moya Document Signatures Signed By: Samantha Moya 04/03/23 08:57 [facility] 04-03-2023 Note ORIGINAL PROCEDURE: ULTRASOUND GUIDED PARACENTESIS CLINICAL STATEMENT: Patient is a 62-year-old male with past medical history of jaundice and ascites who presents for ultrasound-guided paracentesis. SITE: RUQ FLUID REMOVED: 2500 cc FLUID COLOR: Yellow serous DISPOSITION OF FLUID: Sent to lab CATHETER/NEEDLE: 5 Fr centesis catheter needle The procedure, risks, limitations, and alternatives were discussed. All questions were answered. Written informed consent obtained. Accompanying paperwork was verified for accuracy. Directed history and physical exam performed prior to the procedure. Medication reconciliation was performed by nursing personnel. Procedure was performed using a cap, sterile gloves, a sterile drape, sterile probe cover and sterile gel, hand hygiene and hospital-approved cutaneous antisepsis. Ultrasound survey demonstrates ascites. 2% lidocaine was administered at the puncture site for local anesthesia. The centesis catheter needle was advanced into the fluid under real-time sonographic guidance. After removal of the needle, the catheter was attached to vacuum system and 2500 mL yellow serous fluid removed. The catheter was removed once no additional fluid could be removed. Dressing applied. Postprocedure images obtained. Patient tolerated the procedure well. COMPLICATIONS: None EBL: None PATIENT CONDITION: Stable, unchanged. IMPRESSION: Successful ultrasound guided paracentesis This procedure was performed by Nancy Koehler PA-C. Interpreted by: Bill Weller MD Preliminary Report By: Nancy Koehler Electronically signed By Bill Weller MD Dictated Date: 04/03/2023 4:41:43 PM Prelim Date: 04/03/2023 4:42:36 PM Sign Date: 04/03/2023 4:46:39 PM Ordering Provider: TERESE MCCARTNEY [facility] 04-03-2023 Procedure note IR Brief Post Procedure Note Preprocedure Dx: Ascites CIRRHOSIS Post Procedure Dx: Same Procedure: 1. 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 Yellow serous fluid drained from RUQ , peritoneal space 2. Patient tolerated the procedure well with minimal discomfort. Plan: 1. Fluid sent to lab Full report to follow. Nancy Koehler PA-C Interventional Radiology US Dept [id number] Available on cortext Digitally Signed by NANCY KOEHLER PA-C on 04/03/2023 08:39 AM [facility] 04-02-2023 Gastroenterology Progress note Date of Service April 02, 2023, I signed the patient to Dr. Hassan. Dr. Hassan will resume the patient care tomorrow Digitally Signed by BARBIE VOGEL MD on 04/02/2023 07:56 PM [facility] Cirrhosis with ascites Abdominal distention secondary to above History of alcohol abuse Anemia Elevated lipase Hypocalcemia Esophageal wall thickening Hyperbilirubinemia Transaminitis Elevated alk phos Admit patient to stepdown for management of cirrhosis with ascites. Patient requires ultrasound-guided paracentesis. Paracentesis is ordered with pertinent labs including cytology. GI consulted for assistance in management of cirrhosis. Patient will require diuretic regimen. No fevers, defer antibiotics, low suspicion for SBP. GI additionally consulted for esophageal wall thickening noted on CT. This is concerning for mass, in setting of patient's anemia on CBC. Hepatitis serology also ordered. 40 mg IV Lasix ordered given abdominal ascites, appreciate GI assistance in management of diuretic management, home-going regimen. CBC and BMP ordered daily and replete electrolytes necessary, 2 g calcium gluconate ordered in setting of hypoglycemia. Transfuse if hemoglobin less than 7. The case was personally discussed with the ED physician. The labs, imaging, EKG were personally reviewed this case. Diagnostic Tests Pending * HIV 1 Drug Resistance by Next Gen Seq 04/05/23 * Rapid Plasma Reagin Test 04/05/23 * N. gonorrhoeae PCR 04/05/23 * Chlamydia trachomatis PCR 04/05/23 * [facility] [place] Lab Send out (Blood Specimens) 04/05/23 * Hemochromatosis 04/03/23 * Alkaline Phosphatase Isoenzyme 04/03/23 * Nallely Andrade Virus Antibody Titer 04/03/23 * Cytomegalovirus Antibody 04/03/23 * Gliadin Antibody 04/03/23 * Liver Kidney Microsome IgG Autoabs 04/03/23 * Tissue Transglutaminase Ab (IGA) 04/03/23 [facility] 11-19-2023 NoteSinus tachycardia Electronic Signature: SAQIB GIFFORD MD 04/03/2023 14:34:27[facility] 11-19-2023 Gastroenterology Consult note Date of Service April 02, 2023 Reason for Consultation Abdominal distention Referring Physician Hospitalist History of Present Illness 62 years old male patient with no significant past medical history presented to the emergency room because of abdominal distention over the past 1 month and the sore throat over the past 1 months. The patient reports that he had lost 20 pounds over the past 4 months. Over the past 1 month, he noticed abdominal started to distented. However, there was no abdominal pain or abdominal cramps. Patientdenied nausea or vomiting. There was no loss of appetite. There was no heartburn or dysphagia odynophagia. Patient had of 4 bouts of vomiting since November 2022. The stool is soft and like mashed potato. There was no pale stool, melena or hematochezia. Patient never had a colonoscopy before. The patient denies drinking alcohol. She never had a drinking alcohol. He denied using recreationaldrugs. He denied smoking. He denied high risk sexual activity. The CT showed IMPRESSION: Chest: 1. Small right pleural effusion. 2. Right greater than left basilar airspace disease, possibly dependent atelectasis versus pneumonia. Recommend follow-up to resolution. 3. Moderate emphysema. 4. Multiple pulmonary nodules, largest of which is a 14 mm ground-glass nodule. Recommend follow-up CT chest in 3 months, per Fleischner guidelines. Abdomen: 1. Large amount of abdominal/pelvic ascites. 2. Slightly nodular contour of the liver could represent cirrhosis. 3. Splenomegaly. 4. Moderate distal esophageal wall thickening nonspecific but can be seen with esophagitis versus neoplasm. 5. Mildly enlarged portacaval lymph node at 1.2 cm. Recommend follow-up CT abdomen/pelvis in 3-6 months for further evaluation. Review of Systems Review of systems are negative except as mentioned in HPI. Physical Exam Vitals and Measurements T: 36.9 C (Oral) TMIN: 36.9 C (Oral) TMAX: 37.4 C (Oral) HR: 104 RR: 20 BP: 112/64 SpO2: 96% HT: 177.8 cm WT: 76.9 kg BMI: 24.33 Weight Dosing Weight: 76.9 kg (04/01/23) General Appearance: Patient was not in distress on my evaluation Head: Atraumatic and normocephalic EENT: EOMI, PERRLA, no oropharyngeal erythema, no tonsillar exudates, no conjunctival injection. sclera anicteric. Neck: No thyromegaly, no cervical lymphadenopathy, trachea midline Cardiac: S1 and S2 normal. RRR. No murmurs, rubs, or gallops. No JVD. No hepatojugular reflex. Lungs: Good air entry bilaterally. No increased work for breathing. No wheezes, rhonchi, or rales. Abdomen: Soft, moderate distention, there was no tenderness or reboud tenderness and bowel sound was normal Musculoskeletal: Full range of motion upper and lower extremities. No CVA tenderness. Extremities: moist, warm, normal motility Neurological: No gross motor deficits Skin: moist, warm, there was no rash. Psychiatric: Alert and oriented, well groomed, euthymic. cooperative Lab Results 04/02 00:54 WBC: 6.2 Hgb: 10.4 L Hct: 30.1 L Platelet: 191 Neutrophil %: 46.9 L Glucose Level: 94 Sodium Level: 134 L Potassium Level: 3.5 BUN: 8.0 Creatinine Lvl (s): 0.56 L Assessment/Plan 1. Ascites. It might be due to portal hypertension that was secondary to his cirrhosis or even pulled over the hepatic vein thrombosis. The primary care team had already ordered a paracentesis and fluid analysis. We will follow the result. I also ordered a liver ultrasound and liver Doppler to ruleout portal vein and hepatic vein thrombosis. I also recommended primary team order MRI with and without IV contrast following liver mass protocol to rule out liver cancer. 2. Abnormal liver function test including hyperbilirubinemia, elevation alkaline phosphatase and transaminase. The AST was greater than ALT, which might suggest underlying alcoholic hepatitis, patient denied drinking alcohol, which make the diagnosis of alcoholic hepatitis unlikely. MELD was 26 anddiscriminant function was 63.6. However, the patient did have positive HIV antibody suggest HIV infection which might put the patient on contraindication to use corticosteroid if the patient did have alcoholic hepatitis. However patient denies drinking alcohol. Therefore he from the history patient did not have alcohol hepatitis s. I ordered other blood work to rule out other etiologies such as hemochromatosis, Shorty disease alpha-1 antitrypsin deficiency autoimmune hepatitis. 3. HIV infection. Patient was surprised that he was positive HIV. He did not know when and will he got his infection. I would recommend the primary team to consult to the ID doctor. 4. Anemia. I recommend the continue to follow patient hemoglobin and hematocrit on daily basis. There was no overt GI bleeding. 5 weight loss might be due to HIV infection, cirrhosis or even underlying malignancy. As a mention previously, I recommend with order MRI with and without IV contrast of abdomen to rule outliver cancer. 6. 3-4 bouts of bowel movement with soft stool since November. The patient had never had a colonoscopy.The patient deserve a colonoscopy. However, the colonoscopy can be done at outpatient. Problem List/Past Medical History Ongoing No qualifying data Historical No qualifying data Procedure/Surgical History No qualifying data available. Medications Inpatient albumin human 25% intravenous solution, Based on amount fluid removed - PHARMACIST, IV Piggyback (MED), prep pharm Dextrose 50% IV Push, 12.5 gram(s)= 25 mL, IV Push, AsDirected, PRN DuoNeb, 3 mL, Inhalation, q4hRT, PRN Paracentesis PATIENT RETURN, 1 EA, Miscellaneous, q8hr PHARMACY TO DOSE, 1 EA, Miscellaneous, qDay Zofran, 4 mg= 2 mL, IV Push, q4h, PRN Home No active home medications Allergies NKA No Known Medication Allergies Immunizations No qualifying data available. Digitally Signed by BARBIE VOGEL MD on 04/02/2023 09:21 AM [id number] NoteBody Fluid Path ReviewNegative for malignant cells. (This evaluation is based on a screening review of one cytospin slide prepared primarily for differential cell count; if clinical index of suspicion is high, Cytology evaluation is recommended, as clinically indicated) *NA* (04/02/23 8:32 AM) Path Review Subsection 11-19-2023 History and physical note Date of Service April 02, 2023 Chief Complaint Abdominal distention History of Present Illness This is a 62-year-old male with a past medical history consistent with alcohol abuse, presents witha chief complaint of abdominal distention. He states that since the summer he is noticed abdominal distention, tightness in his abdomen that is Gradually worse to the point where he is subjectively short of breath. Denies alcohol or drug use.He states that he used to drink up to 3 beers a day but has not had alcohol over the last month. Denies fevers. Pertinent labs, CBC with Hgb of 10.4. CMP with sodium 134, calcium of 6.8. Lipase elevated 80, ammonia level 10. UDS was negative. T. bili found to be 10.2. Alk phos of 733, AST 203. UA within normallimits. CTAP performed and revealed large abdominal ascites and a cirrhotic appearing liver. Additionally, noted that there is an irregular wall thickening in the distal esophagus. CT chest with small bilateral pleural effusions. On exam, the patient is resting comfortably in bed. Noticeably jaundiced. Speaking complete sentences, ANO x4. The patient denies chest pain, shortness of breath, nausea vomiting diarrhea. Vital signs are stable at time evaluation. Review of Systems Complete detailed review of systems obtained and all pertinent positives and negatives are noted inthe history of present illness. Physical Exam Vitals and Measurements T: 37.0 C (Oral) HR: 94(Monitored) RR: 20 BP: 123/75 SpO2: 97% HT: 177.8 cm WT: 76.9 kg BMI: 24.33 Weight Dosing Weight: 76.9 kg (04/01/23) Physical Examination General: No apparent distress. Alert and appropriate. HEENT: NCAT EOMI Neck: Supple. No appreciable elevation in JVP. Cardiovascular: S1 S2 normal. No extra-audible heart tones. Respiratory: Bilaterally clear breath sounds with no crepitation or wheeze. Abdominal: Soft, nontender and nonrigid. Distended, no guarding. Bowel sounds present. Extremities: No edema. Adequate peripheral circulation. Neurological: Grossly intact without focal deficit. Cerebellar function preserved. Skin: Intact. Dry. No rash. Lab Results No 36 Hour Lab Data Imaging Results and Diagnostics IMPRESSION: CT chest, CT abdomen pelvis personally reviewed Chest: 1. Small right pleural effusion. 2. Right greater than left basilar airspace disease, possibly dependent atelectasis versus pneumonia. Recommend follow-up to resolution. 3. Moderate emphysema. 4. Multiple pulmonary nodules, largest of which is a 14 mm ground-glass nodule. Recommend follow-up CT chest in 3 months, per Fleischner guidelines. Abdomen: 1. Large amount of abdominal/pelvic ascites. 2. Slightly nodular contour of the liver could represent cirrhosis. 3. Splenomegaly. 4. Moderate distal esophageal wall thickening nonspecific but can be seen with esophagitis versus neoplasm. 5. Mildly enlarged portacaval lymph node at 1.2 cm. Recommend follow-up CT abdomen/pelvis in 3-6 months for further evaluation. EKG Ordered, pending Assessment/Plan Cirrhosis with ascites Abdominal distention secondary to above History of alcohol abuse Anemia Elevated lipase Hypocalcemia Esophageal wall thickening Hyperbilirubinemia Transaminitis Elevated alk phos Admit patient to stepdown for management of cirrhosis with ascites. Patient requires ultrasound-guided paracentesis. Paracentesis is ordered with pertinent labs including cytology. GI consulted for assistance in management of cirrhosis. Patient will require diuretic regimen. No fevers, defer antibiotics, low suspicion for SBP. GI additionally consulted for esophageal wall thickening noted on CT. This is concerning for mass, in setting of patient's anemia on CBC. Hepatitis serology also ordered. 40 mg IV Lasix ordered given abdominal ascites, appreciate GI assistance in management of diuretic management, home-going regimen. CBC and BMP ordered daily and replete electrolytes necessary, 2 g calcium gluconate ordered in setting of hypoglycemia. Transfuse if hemoglobin less than 7. The case was personally discussed with the ED physician. The labs, imaging, EKG were personally reviewed this case. Problem List/Past Medical History Ongoing No qualifying data Historical No qualifying data Procedure/Surgical History No qualifying data available. Medications No qualifying data available Allergies NKA No Known Medication Allergies Immunizations No qualifying data available. Code Status Code Status - Ordered -- 04/02/23 0:20:00 EST, Full Code, Constant Order Digitally Signed by TERESE MCCARTNEY DO on 04/02/2023 03:30 AM [facility] course Narrative No data available for this section [facility] Summary Purpose Family History No Family History Records Found Advance Directives No Advanced Directives Records Found Additional Source Comments Patient Care team informatio n (unrecognized section and content) Care Team Personnel Name: Leslee Mcdermott RN Position: Bed Management Member Role: Other Name: Yuly Marrero Position: Bed Management Member Role: Other Name: PHYSICIAN, NONE Position: Physician Member Role: Primary Care Physician Care Team Personnel Name: Leslee Mcedrmott RN Position: Bed Management Member Role: Other Name: Yuly Marrero Position: Bed Management Member Role: Other Name: PHYSICIAN, NONE Position: Physician Member Role: Primary Care Physician Name: AMBER CREWS DO Position: ED Physician Member Role: ED Physician Address: Address: [address] [place] [address] Name: Cindy Tabor RN Position: JETT RN Member Role: RN (unrecognized sect ion and content) No Status Records Found INFORMATION SOURCE (unrecogn ized section and content) FOR RECORDS PERTAINING TO PATIENTS WHO ARE OR HAVE BEEN ENROLLED IN A CHEMICAL DEPENDENCY/SUBSTANCEABUSE PROGRAM, SOME INFORMATION MAY BE OMITTED. This clinical summary was aggregated from multiple sources. Caution should be exercised in using it in the provision of clinical care. This summary normalizes information from multiple sources, and as a consequence, information in this document may materially change the coding, format and clinical context of patient data. In addition, data may be omitted in some cases. CLINICAL DECISIONS SHOULD BE BASED ON THE PRIMARY CLINICAL RECORDS. [facility] [employer] [facility]. provides no warranty or guarantee of the accuracy or completeness of information in this document.
[2023-05-11 08:08] VITALS: BP 109/63; PULSE 112; RESP 16; TEMP 37.1; O2SAT 99
[2023-05-11] MEDS: Lidocaine 2% (20 ml mdv) 20 ML Vial INFILT (08:12)
[2023-05-11 08:23] VITALS: BP 108/66; PULSE 110; RESP 16; O2SAT 100
[2023-05-11 08:38] VITALS: BP 113/62; PULSE 109; RESP 16; O2SAT 99
[2023-05-11 08:53] VITALS: BP 96/72; PULSE 110; RESP 16; O2SAT 100
[2023-05-11 08:57] VITALS: BP 106/70; PULSE 110; RESP 16; O2SAT 99
--- NOTE | 2023-05-11 09:11 | PRO.PCM_ITS ---
Procedure Report Date of Procedure: 05/11/23 Assessment & Plan Assessment/Plan (1) Ascites due to alcoholic cirrhosis: PLAN: PROCEDURE: Ultrasound guided paracentesis ORDERING PROVIDER: Layton Bailey CNP INDICATION: Male, 62 years old. Ascites. PROVIDER: TORIE Avila TECHNIQUE: The risks, benefits, and alternatives to the procedure were explained to the patient. The specific risks of bleeding, infection, and damage to bowel were detailed and accepted. Witnessed informed consent was obtained. The abdomen was ultrasonographically surveyed. An appropriate pocket of fluid was identified in the right lower quadrant. The skin was prepped with Betadine swabs and sterile field established. 2% lidocaine was used for local anesthetic. Using ultrasound guidance, the peritoneal cavity was accessed with a 5-Mongolian paracentesis needle/catheter system. The trocar was removed. A total of 4350 ml of clear yellow colored fluid was removed from the peritoneal cavity. The catheter was removed and a sterile dressing was applied. The procedure was well tolerated. IMPRESSION: Successful ultrasound-guided paracentesis with right lower quadrant access site. Procedures Radiology Radiology US Procedures: [id number] Paracentesis
== END | disposition home or self-care (01) ==
PROVIDERS: PCP Nurse Practitioner Family; Referring Provider Nurse Practitioner Family; Visit Provider Nurse Practitioner Family
DX: K70.31 Alcoholic cirrhosis of liver with ascites (principal)
CPT/HCPCS: 49083

== ENCOUNTER → 2023-05-18 | Outpatient (CLI) | payer OTHER, SELFPAY ==
[2023-05-18] MEDS: Lidocaine 2% (20 ml mdv) 20 ML Vial INFILT (12:20)
--- OUTSIDE RECORDS SUMMARY | 2023-05-18 12:36 | XMS RPT_ITS | CCD ---
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 Fluid/Drainage Fluid Amount mL: 2500 Fluid Description yellow serous RAD - US [place], Guidewires, Cath.... Catheters M-Drain Centesis Miscellaneous Items [...] Signatures Signed By: Samantha Moya 04/03/23 08:57 [facility] 04-03-2023 Note ORIGINAL PROCEDURE: ULTRASOUND GUIDED [...] 04/03/2023 4:46:39 PM Ordering Provider: TERESE MCCARTNEY [facility] 04-03-2023 Procedure note IR Brief Post Procedure Note Preprocedure Dx: Ascites CIRRHOSIS Post Procedure Dx: Same Procedure: 1. Ultrasound Guided Paracentesis Automatic Pattern Edger: Nancy Koehler PA-C Sheet Rock Taper: None Anesthesia: Local EBL: Minimal Complications: None Status: Stable Findings: 1. Yellow serous fluid drained from RUQ , peritoneal space 2. Patient tolerated the procedure well with minimal discomfort. Plan: 1. Fluid sent to lab Full report to follow. Nancy Koehler PA-C Interventional Radiology US Dept [id number] Available on cortext Digitally Signed by NANCY KOEHLER PA-C on 04/03/2023 08:39 AM [facility] 04-02-2023 Gastroenterology Progress note Date of Service April 02, 2023, I signed the patient to Dr. Hassan. Dr. Hassan will resume the patient care tomorrow Digitally Signed by BARBIE VOGEL MD on 04/02/2023 07:56 PM [facility] Cirrhosis with ascites Abdominal distention secondary [...] 04/05/23 * Chlamydia trachomatis PCR 04/05/23 * [facility] [place] (Blood Specimens) 04/05/23 * Hemochromatosis 04/03/23 * Alkaline Phosphatase Isoenzyme 04/03/23 * Nallely Andrade Virus Antibody Titer 04/03/23 * Cytomegalovirus Antibody 04/03/23 * Gliadin Antibody 04/03/23 * Liver Kidney Microsome IgG Autoabs 04/03/23 * Tissue Transglutaminase Ab (IGA) 04/03/23 [facility] 11-19-2023 NoteSinus tachycardia Electronic Signature: SAQIB GIFFORD MD 04/03/2023 14:34:27[facility] 11-19-2023 Gastroenterology Consult note Date of [...] BARBIE VOGEL MD on 04/02/2023 09:21 AM [id number] NoteBody Fluid Path ReviewNegative for malignant cells. [...] TERESE MCCARTNEY DO on 04/02/2023 03:30 AM [facility] course Narrative No data available for this section [facility] Summary Purpose Family History No Family [...] Care Physician Care Team Personnel Name: Leslee Mcdermott RN Position: Bed Management Member Role: Other Name: Yuly Marrero Position: Bed Management Member Role: Other Name: PHYSICIAN, NONE Position: Physician Member Role: Primary Care Physician Name: AMBER CREWS DO Position: ED Physician Member Role: ED Physician Address: Address: [address] [place] [address] Name: Cindy Tabor RN Position: JETT RN [...] BE BASED ON THE PRIMARY CLINICAL RECORDS. [facility]. provides no warranty or guarantee of the accuracy or completeness of information in this document.
--- NOTE | 2023-05-18 13:35 | PCM.OP.PRO ---
Procedure Report Date of Procedure: 05/18/23 Assessment & Plan Assessment/Plan (1) Ascites due to alcoholic cirrhosis: PLAN: PROCEDURE: Ultrasound guided paracentesis ORDERING PROVIDER: Layton Bailey CNP INDICATION: Male, 62 years old. Ascites. PROVIDER: TORIE Avila TECHNIQUE: The risks, benefits, and alternatives to the procedure were explained to the patient. The specific risks of bleeding, infection, and damage to bowel were detailed and accepted. Witnessed informed consent was obtained. The abdomen was ultrasonographically surveyed. An appropriate pocket of fluid was identified in the right lower quadrant. The skin was prepped with chlorhexidine and sterile field established. 2% lidocaine was used for local anesthetic. Using ultrasound guidance, the peritoneal cavity was accessed with a 5-Zimbabwean paracentesis needle/catheter system. The trocar was removed. A total of 6300 ml of clear yellow colored fluid was removed from the peritoneal cavity. The catheter was removed and a sterile dressing was applied. The procedure was well tolerated. IMPRESSION: Successful ultrasound-guided paracentesis with right lower quadrant access site. Procedures Radiology Radiology US Procedures: [id number] Paracentesis
== END | disposition home or self-care (01) ==
LOC: US 11:58
PROVIDERS: PCP Nurse Practitioner Family; Referring Provider Nurse Practitioner Family; Visit Provider Nurse Practitioner Family
DX: K70.31 Alcoholic cirrhosis of liver with ascites (principal)
CPT/HCPCS: 49083

== ENCOUNTER 2023-05-20 03:10 | Emergency (ER) | payer OTHER, SELFPAY ==
[2023-05-20 03:16] VITALS: BP 129/98; PULSE 116; RESP 19; TEMP 36.1; O2SAT 100; BMI 23.3
[2023-05-20] MEDS: Morphine 4 MG/ML Syringe IV (04:03)
--- OUTSIDE RECORDS SUMMARY | 2023-05-20 04:03 | XMS RPT_ITS | CCD ---
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 Brief Post Procedure Note Preprocedure Dx: Ascites CIRRHOSIS Post Procedure Dx: Same Procedure: 1. Ultrasound Guided Paracentesis Investment Manager: Nancy Koehler PA-C Dianetic Counselor: None Anesthesia: Local EBL: Minimal Complications: None Status: Stable Findings: 1. Yellow serous fluid drained from RUQ , peritoneal space 2. Patient tolerated the procedure well with minimal discomfort. Plan: 1. Fluid sent to lab Full report to follow. Nancy Koehler PA-C Interventional Radiology US Dept [id number] Available on cortext Digitally Signed by NANCY KOEHLER PA-C on 04/03/2023 08:39 AM [facility] 04-02-2023 Gastroenterology Progress note Date of Service April 02, 2023, I signed the patient to Dr. Hassan. Dr. Hassan will resume the patient care tomorrow Digitally Signed by BARBIE VOGEL MD on 04/02/2023 07:56 PM [facility] Cirrhosis with ascites Abdominal distention secondary [...] 04/05/23 * Chlamydia trachomatis PCR 04/05/23 * [facility] Lab Send out (Blood Specimens) 04/05/23 * Hemochromatosis 04/03/23 * Alkaline Phosphatase Isoenzyme 04/03/23 * Nallely Andrade Virus Antibody Titer 04/03/23 * Cytomegalovirus Antibody 04/03/23 * Gliadin Antibody 04/03/23 * Liver Kidney Microsome IgG Autoabs 04/03/23 * Tissue Transglutaminase Ab (IGA) 04/03/23 [facility] 11-19-2023 NoteSinus tachycardia Electronic Signature: SAQIB GIFFORD MD 04/03/2023 14:34:27[facility] 11-19-2023 Gastroenterology Consult note Date of [...] BARBIE VOGEL MD on 04/02/2023 09:21 AM [facility] [id number] NoteBody Fluid Path ReviewNegative for malignant cells. [...] TERESE MCCARTNEY DO on 04/02/2023 03:30 AM [facility] course Narrative No data available for this section [facility] Summary Purpose Family History No Family [...] Physician Member Role: ED Physician Address: Address: [address] [place] [address] Name: Cindy Tabor RN Position: JETT RN [...] BE BASED ON THE PRIMARY CLINICAL RECORDS. [facility] Room 8 [facility]. provides no warranty or guarantee of the accuracy or completeness of information in this document.
[2023-05-20] MEDS: Ondansetron 4 MG/2 ML Vial IV (04:04)
[2023-05-20 04:17] LABS: Absolute Lymphocyte Count 2.71 X10^3/uL (0.83-4.51); Absolute Neutrophil Count 5.3 X10^3/uL (2.0-7.7); Basophil# 0.07 X10^3/uL; Basophil% 0.7 % (0-1); Eosinophil# 0.32 X10^3/uL; Eosinophils% 3.4 % (0-5); Hematocrit 29.9 % (40-54); Hemoglobin 10.1 g/dL (13.0-16.5); Lymphocyte # 2.71 X10^3/ul (0.83-4.51); Lymphocyte % 28.5 % (19-41); Mean Corp Hgb Conc 33.8 g/dL (32-36); Mean Corpuscular Hgb 32.9 pg (27.0-32.0); Mean Corpuscular Volume 97.4 fL (80-94); Mean Platelet Vol. 9.9 fl (6.2-12.0); Monocyte# 1.03 X10^3/uL; Monocyte% 10.8 % (0-10); NRBC Flagged by Analyzer 0 % (0-5); Neutrophil # 5.29 X10^3/uL (2.7-7.7); Neutrophil % 55.8 % (47-70); POSITIVE MORPHOLOGY YES; Platelet Count 153 K/mm3 (150-450); RBC Distribution Width CV 18.6 % (11.6-14.6); RBC Distribution Width SD 65.6 fl (35.1-43.9); Red Blood Count 3.07 M/mm3 (4.6-6.2); White Blood Count 9.5 K/mm3 (4.4-11.0)
[2023-05-20 04:22] LABS: Differential Indicated SCAN CRITERIA MET
[2023-05-20 04:33] LABS: AST(SGOT) 150 U/L (15-37); Alanine Aminotransfer ALT/SGPT 72 U/L (16-61); Albumin, Serum 1.1 g/dL (3.2-5.0); Alkaline Phosphatase 340 U/L (45-117); Anion Gap 3 (5-15); BUN 23 mg/dL (7-18); Bilirubin, Direct 5.79 mg/dL (0.00-0.30); Calcium,Total 7.4 mg/dL (8.5-10.1); Chloride 106 mmol/L (98-107); Creatinine, Serum 1.15 mg/dL (0.70-1.30); EST Glomerular Filtration Rate 68 mL/min (>60); Est Glom Filt Rate - Afr Amer 82 mL/min (>60); Estimated Creatinine Clearance 67.89 ml/min; Globulin 5.1 g/dL (2.2-4.2); Glucose 134 mg/dL (74-106); Lipase 52 U/L (13-75); Potassium 5.3 mmol/L (3.5-5.1); Protein, Total 6.2 g/dL (6.4-8.2); Sodium Level 135 mmol/L (136-145)
[2023-05-20 04:43] LABS: Anisocytosis 2+
--- NOTE | 2023-05-20 05:11 | EX.ED.DYSGE1 ---
HPI History of Present Illness Chief Complaint: Abd Pain Informant: patient Narrative Narrative: Patient is a 62-year-old male with history of cirrhosis and ascites. He receives therapeutic paracentesis every 1 to 2 weeks. He states he just had his paracentesis on May 18. He reports he has chronic pain from his cirrhosis but in the last 1 to 2 days he feels like his pain has been more intense. He denies any fevers he states there has been no vomiting or diarrhea or dysuria. Does state that he has had mild congestion and cough but is mainly his increased pain that he presents for evaluation at this time [facility] Medical History (Updated 05/20/23 @ 05:[address] Edinson Ariza, DO) Cirrhosis HIV disease Home Medications bictegravir 50 mg-emtricitabine 200 mg-tenofovir alafenam 25 mg tablet (Biktarvy) 1 tab PO DAILY 04/28/23 [History Last Taken Unknown] dexamethasone 6 mg tablet 6 mg PO DAILY 10 days #10 tabs 05/20/23 [Rx Last Taken Unknown] hydroxyzine HCl 10 mg tablet 10 mg PO QHS 05/20/23 [History Last Taken Unknown] ipratropium bromide 21 mcg (0.03 %) nasal spray 2 spray intranasal BID 05/20/23 [History Last Taken Unknown] oxycodone-acetaminophen 5 mg-325 mg tablet (Percocet) 1 tab PO Q6H PRN pain 5 days #20 tabs 05/20/23 [Rx Last Taken Unknown] Allergy/AdvReac Type Severity Reaction Status Date / Time No Known Allergies Allergy Verified 05/20/23 03:16 Social History Smoking Status: Former smoker [facility] ED Constitutional Constitutional ED: Denies chills or fever(s) ENT ENT ED: Reports rhinorrhea; Denies sore throat Cardiovascular Cardiovascular: Denies chest pain Respiratory/Chest Respiratory/Chest: Reports cough; Denies dyspnea Gastrointestinal Gastrointestinal: Reports abdominal pain; Denies diarrhea, nausea or vomiting Genitourinary Genitourinary ED: Denies dysuria Musculoskeletal Musculoskeletal: Reports myalgias Integumentary Denies rash Neurologic Neurologic: Denies headache(s) Hematologic/Lymphatic Hematologic/Lymphatic: Reports easy bleeding and easy bruising EXAM Physical Exam Const Vital Signs: 05/20/23 03:16 Temperature 97 F L Temperature Source Temporal Pulse Rate 116 H Respiratory Rate 19 H Blood Pressure 129/98 H Blood Pressure Mean 108 Pulse Ox 100 Positive cachectic General Appearance ED: cachectic Nutritional Appearance: cachectic HEENT HEENT Narrative: No tongue or lip swelling noted There is cobblestoning the posterior pharynx consistent with sinus drainage without airway edema or compromise Eyes PERRL and EOMs intact bilaterally Eyes Narrative: Patient has scleral icterus consistent with history of cirrhosis General Eye ED: Yes scleral icterus Neck supple Neck Narrative: No nuchal rigidity or meningeal signs noted Resp clear to auscultation bilaterally Resp Narrative: Breath sounds are diminished throughout but overall clear to auscultation There is mild tachypnea noted Cardio regular rhythm Rate: tachycardic and other Other Details: Tachycardic rate with regular rhythm Radial and carotid pulses are equal and symmetric GI GI Narrative: Abdomen is soft with slight distention. There is mild diffuse pain on palpation but no voluntary guarding or rigidity. No peritoneal signs There is faint fluid wave noted consistent with history of ascites and cirrhosis Extremity Extremity Narrative: There is trace to +1 pitting edema to the bilateral lower extremities consistent with history of cirrhosis Neuro oriented x3 and CN's II-XII intact bilaterally Sensorium / Orientation: alert Psych mental status grossly normal Skin Skin Narrative: Patient is jaundiced consistent with history of cirrhosis General Skin Exam: jaundice MDM MDM MDM Narrative Medical decision making narrative: Patient arrived to the ER afebrile. He has known cirrhosis and ascites and recent underwent a paracentesis but his physical exam does not suggest spontaneous bacterial peritonitis. He reports he has chronic abdominal pain but states that overall he has had increase in whole body pain or myalgias over the last few days and this does increase concern for viral infection such as COVID or influenza especially as he reports mild cough and congestion. In order to ensure that he is not developing spontaneous bacterial peritonitis I did elect to check basic laboratory values. Patient's white count is normal at 9.5 there is no left shift and his liver enzymes are elevated near his baseline system with his history of cirrhosis. His COVID test was positive which would correlate with the mild congestion cough and myalgias. At this time he is not hypoxic or in respiratory distress or showing signs of septicemia and as history and exam do not suggest spontaneous bacterial peritonitis but an increase in pain secondary to inflammatory process from COVID I do not feel there is need for further workup. As he is not hypoxic or showing signs of distress or septicemia there is no need for admission and he is otherwise safe for discharge Lab Data Attestation: I reviewed the patient's lab results. Labs: Laboratory Results - last 24 hr 05/20/23 04:07 WBC 9.5 RBC 3.07 L Hgb 10.1 L Hct 29.9 L MCV 97.4 H MCH 32.9 H MCHC 33.8 RDW Std Deviation 65.6 H RDW Coeff of Eloise 18.6 H Plt Count 153 MPV 9.9 Immature Gran % (Auto) 0.800 Neut % (Auto) 55.8 Lymph % (Auto) 28.5 Hernando % (Auto) 10.8 H Eos % (Auto) 3.4 Baso % (Auto) 0.7 Absolute Neuts (auto) 5.3 Absolute Lymphs (auto) 2.71 Nucleated RBC % 0 Anisocytosis 2+ Sodium 135 L Potassium 5.3 H Chloride 106 Carbon Dioxide 26.0 Anion Gap 3 L BUN 23 H Creatinine 1.15 Estim Creat Clear Calc 67.89 Est GFR (MDRD) Af Amer 82 Est GFR (MDRD) Non-Af 68 BUN/Creatinine Ratio 20.0 Glucose 134 H Calcium 7.4 L Total Bilirubin 7.30 H Direct Bilirubin 5.79 H AST 150 H ALT 72 H Alkaline Phosphatase 340 H Total Protein 6.2 L Albumin 1.1 L Globulin 5.1 H Lipase 52 Discharge Plan Triage Chief Complaint: Abd Pain ED Provider: Edinson Ariza Dx/Rx/DC Orders Clinical Impression: COVID-19, Cirrhosis Instructions: Coronavirus Disease 2019 (COVID-19): Caring for Yourself or Others, ED Cirrhosis Prescriptions: New dexamethasone 6 mg tablet 6 mg PO DAILY 10 Days Qty: 10 0RF oxycodone-acetaminophen [Percocet] 5-325 mg tablet 1 tab PO Q6H PRN (Reason: pain) 5 Days Qty: 20 0RF No Action hydroxyzine HCl 10 mg tablet 10 mg PO QHS Patient Comments: TAKE ONE TABLET BY MOUTH AT BEDTIME NEEDED FOR SLEEP ipratropium bromide 21 mcg (0.03 %) spray,non-aerosol 2 spray INTRANASAL BID Patient Comments: SPRAY ONE SPRAY IN EACH NOSTRIL TWICE DAILY Biktarvy 50-200-25 mg tablet 1 tab PO DAILY Primary Care Provider: Layton Bailey Referrals: Layton Bailey, INTEGRATION SOFTWARE ENGINEER-C [Primary Care Provider] - Activity Restrictions/Additional Instructions: You tested positive for COVID-19 which could be a cause of increased muscle aches pain and headache. Take the Decadron as directed to reduce inflammation and use the Percocet for improved pain control. Follow-up with your doctor as directed and return to the ER should you have any further concerns Disposition Disposition: Home, Self Care Discharge Date/Time: 05/20/23 05:20
== END 2023-05-20 05:20 | disposition home or self-care (01) ==
PROVIDERS: Emergency Provider Emergency Medicine; PCP Nurse Practitioner Family; Referring Provider Emergency Medicine; Visit Provider Emergency Medicine
DX: U07.1 COVID-19 (principal); K74.60 Unspecified cirrhosis of liver; Z21 Asymptomatic human immunodeficiency virus [HIV] infection status; Z87.891 Personal history of nicotine dependence; Z79.899 Other long term (current) drug therapy
CPT/HCPCS: 80048; 80076; 83690; 85025; 87631; 96374; 96375; 99283; A4216; J2405

== ENCOUNTER 2023-05-24 18:28 | Inpatient (IN) | payer OTHER, SELFPAY ==
[2023-05-24 18:30] VITALS: BP 149/120; PULSE 128; RESP 18; TEMP 35.4; BMI 21.4
--- NOTE | 2023-05-24 19:14 | EDS_ITS ---
HPI History of Present Illness Chief Complaint: Weakness [facility] Medical History Cirrhosis HIV disease Home Medications bictegravir 50 mg-emtricitabine 200 mg-tenofovir alafenam 25 mg tablet (Biktarvy) 1 tab PO DAILY 04/28/23 [History Last Taken Unknown] dexamethasone 6 mg tablet 6 mg PO DAILY 10 days #10 tabs 05/20/23 [Rx Last Taken Unknown] hydroxyzine HCl 10 mg tablet 10 mg PO QHS 05/20/23 [History Last Taken Unknown] oxycodone-acetaminophen 5 mg-325 mg tablet (Percocet) 1 tab PO Q6H PRN pain 5 days #20 tabs 05/20/23 [Rx Last Taken Unknown] Allergy/AdvReac Type Severity Reaction Status Date / Time No Known Allergies Allergy Verified 05/24/23 18:29 Social History Smoking Status: Former smoker EXAM Physical Exam Const Vital Signs: 05/24/23 18:30 05/24/23 18:48 Temperature 95.7 F L Temperature Source Temporal Pulse Rate 128 H Respiratory Rate 18 Respiratory Effort Normal Non-Labored Respiratory Pattern Normal Blood Pressure 149/120 H Blood Pressure Mean 129 Oxygen Delivery Method Room Air MDM MDM MDM Narrative Medical decision making narrative: HISTORY OF PRESENT ILLNESS: 62-year-old male presents with increased weakness. The patient is altered and does not provide reliable history. REVIEW OF SYSTEMS: The patient is altered and does not provide lab review of systems PHYSICAL EXAM: Nursing triage notes reviewed, Vital signs reviewed Constitutional: please see mdm HENT: MMM Eyes: Pupils equal round and reactive to light, Extraocular muscles intact, scleral icterus noted Neck: No stridor, no JVD, full neck ROM Lungs: Clear to auscultation, No wheezing or rales. No increased work of breathing, no conversational dyspnea, no accessory muscle use, no nasal flaring. No respiratory distress noted Heart: Fast rate but regular rhythm, No murmurs, No rubs and No gallops, 2+ distal pulses (radial, femoral, posterior tibial) in all extremities Abdomen: Soft, no tense ascites, no appreciable tenderness : No CVAT Extremities: 3+ pitting edema in bilateral lower extremities, Neuro: Alert but disoriented (A&O x 0), moves all 4 extremities, appears to have sensation in all 4 extremities. Skin: Jaundice MEDICAL DECISION MAKING: Chief Complaint: Weakness External records reviewed: Abdominal pain, congestion and cough, he was diagnosed with COVID-19 at that time. He was discharged with Decadron and Percocet. Recent ED visit 4 days ago for Factors affecting care: cirrhosis, HIV Consults: Internal medicine (Dr. Phipps) MDM Narrative: Was initially tachycardic otherwise hemodynamic stable, afebrile nontoxic- appearing but altered, confused alert and oriented x 0. I considered the following differential diagnosis: ICH, hepatic cephalopathy, infectious cephalopathy ALL IMAGES (IF OBTAINED) HAVE BEEN PERSONALLY REVIEWED AND INTERPRETED BY CAL Woodson EKG with sinus tachycardia, normal axis, normal intervals, no STEMI High-sensitivity troponin is negative, no evidence of myocardial ischemia Lactate elevated consistent with endorgan hypoperfusion CBC with leukocytosis suggestive of systemic elevation, stable anemia, no thrombocytopenia BMP with hyper per kalemia, baseline kidney function LFTs with signs of hepatobiliary obstruction including elevated bilirubin, AST ALT and alk phos similar to prior is likely secondary to cirrhosis Urine shows signs of urine infection The synthesis of the patient's history, physical exam, labs images suggest hepatic encephalopathy and UTI. He was given antibiotics, rectal lactulose. He was admitted for ongoing evaluation, antibiotic therapy and hepatic encephalopathy treatment. Discussed with hospitalist accepted patient's case to the PCU. In terms of septic shock I not feel the patient needed a 30 cc/kg bolus. Suspect his lactate elevation is twofold 1 from UTI but additionally because of his poor baseline liver function, compromise quality cycle. I do not feel the patient needed a 30 cc/kg bolus given his history of cirrhosis and poor oncotic pressure is likely to worsening ascites distention and possibly volume overload. The patient and/or family, caregivers express understanding. The patient and/or family, caregivers agrees with the plan. Shared decision making: I will have a discussion with the patient and or visitors regarding risk/benefits of further testing or admission. They will be made aware of of the risk/benefits inherent in this decision they will be given the opportunity to voice understanding. Total critical care time today provided was at least 0 minutes. This excludes separately billable procedures. Critical care time (if documented) is secondary to the patient having high probability of clinically significant/life threatening deterioration in the patient's condition which required my urgent intervention. Impression: 1. Altered mental status 2. Hepatic encephalopathy 3. UTI Dispo: Admit to PCU Lab Data Labs: Laboratory Results - last 24 hr 05/24/23 05/24/23 19:25 20:00 WBC 14.5 H RBC 3.32 L Hgb 10.9 L Hct 32.4 L MCV 97.6 H MCH 32.8 H MCHC 33.6 RDW Std Deviation 65.3 H RDW Coeff of Eloise 18.5 H Plt Count 183 MPV 10.5 Immature Gran % (Auto) 2.400 H Neut % (Auto) 79.8 H Lymph % (Auto) 6.5 L Colleton % (Auto) 10.8 H Eos % (Auto) 0.1 Baso % (Auto) 0.4 Absolute Neuts (auto) 11.6 H Absolute Lymphs (auto) 0.95 Nucleated RBC % 0.1 Differential Comment SCANNED Diff Path Review May foll Anisocytosis 1+ Ammonia 70.0 H Urine Color Kristine Urine Clarity Sl. Cloudy Urine pH 6.0 Ur Specific Carpenter 1.020 Urine Protein 30 H Urine Glucose (UA) Normal Urine Ketones 5 H Urine Occult Blood 150 H Urine Nitrite Positive H Urine Bilirubin 3 H Urine Urobilinogen 8 H Ur Leukocyte Esterase 100 H Urine Opiates Screen POSITIVE H Urine Methadone Screen NEGATIVE Ur Barbiturates Screen NEGATIVE Ur Phencyclidine Scrn NEGATIVE Ur Amphetamines Screen NEGATIVE MDMA (Ecstasy) Screen NEGATIVE U Benzodiazepines Scrn NEGATIVE Urine Cocaine Screen NEGATIVE U Cannabinoids Screen NEGATIVE Ur Drug Screen Comment Ethyl Alcohol < 3.0 Discharge Plan Triage Chief Complaint: Weakness ED Provider: Miguel Mckoy Dx/Rx/DC Orders Prescriptions: No Action hydroxyzine HCl 10 mg tablet 10 mg PO QHS Patient Comments: TAKE ONE TABLET BY MOUTH AT BEDTIME NEEDED FOR SLEEP dexamethasone 6 mg tablet 6 mg PO DAILY 10 Days Qty: 10 0RF oxycodone-acetaminophen [Percocet] 5-325 mg tablet 1 tab PO Q6H PRN (Reason: pain) 5 Days Qty: 20 0RF Biktarvy 50-200-25 mg tablet 1 tab PO DAILY Primary Care Provider: Layton Bailey LAND RESOURCE SPECIALIST Referrals: Layton Bailey [facility], LAND RESOURCE SPECIALIST-C [[facility]] -
--- NOTE | 2023-05-24 19:16 | EKG12_ITS ---
Test Reason : WEAKNESS Blood Pressure : / mmHG Vent. Rate : 126 BPM Atrial Rate : 126 BPM P-R Int : 144 ms QRS Dur : 088 ms QT Int : 314 ms P-R-T Axes : 059 078 088 degrees QTc Int : 454 ms Sinus tachycardia Otherwise normal ECG Confirmed by REINIER DREW, PHIL ([id number]), commercial production editor STORM BEARD ([id number]) on 05/26/2023 7:09:47 AM Referred By: Confirmed By:PHIL HILLS MD
--- NOTE | 2023-05-24 19:21 | CT_ITS ---
STUDY: CT BRAIN WITHOUT CONTRAST REASON FOR EXAM: Male, 62 years old. altered mental status RADIATION DOSAGE (If Supplied By Facility): CTDIvol = ( 44.99 ) mGy, DLP = ( 1659.71 ) mGycm TECHNIQUE: Transaxial CT imaging of the brain was performed without administration of intravenous contrast material. Individualized dose optimization techniques were used for this CT. COMPARISON: No relevant priors. FINDINGS: Left posterior mild scalp swelling/hematoma. Normal calvarium. Normal size ventricles and extra-axial spaces for the patient''s age. Normal white matter tracts of the cerebral hemispheres. Normal basal ganglia and thalami. Normal brainstem. Normal cerebellum. There is no intracranial hemorrhage. There are no findings of an acute ischemic infarction. Normal visualized paranasal sinuses. CT/Brain/Head without Contrast IMPRESSION: Mild left posterior scalp swelling/hematoma. Otherwise normal unenhanced CT scan of the brain. Electronically Signed: Nicole Lilly MD at 20:41 EST ,
--- NOTE | 2023-05-24 19:22 | CT_ITS ---
STUDY: CT ABDOMEN AND PELVIS WITHOUT CONTRAST REASON FOR EXAM: Male, 62 years old. abdominal pain, jaundice RADIATION DOSAGE (If Supplied By Facility): CTDIvol = ( 10.69 ) mGy, DLP = ( 616.79 ) mGycm TECHNIQUE: Transaxial images were obtained from the dome of the diaphragm to the symphysis pubis without oral contrast, and without intravenous contrast. Sagittal and coronal images were reconstructed. Individualized dose optimization techniques were used for this CT. COMPARISON: 04/15/2023. FINDINGS: Bilateral lower lobe, right middle lobe and lingular atelectasis. Borderline mild cardiomegaly with coronary artery calcifications. There is a diffuse contour abnormality of the liver consistent with cirrhotic changes. The gallbladder is contracted. The spleen measures 17.4 cm consistent with splenomegaly. Normal pancreas. There is large ascites within the abdomen and pelvis. Normal bilateral adrenal glands. Normal right kidney. Left lower renal pole stone measuring 1.7 mm. Otherwise normal left kidney. Mild distention of the distal esophagus versus small hiatal hernia. Otherwise stomach is unremarkable. Normal small intestine. The colon is incompletely distended, otherwise unremarkable. There is non-visualization of the appendix. There is mild atherosclerotic calcification of the abdominal aorta, without a demonstrated aneurysm. Normal inferior vena cava. Normal retroperitoneum. Urinary bladder is decompressed via Freed catheter. Normal abdominal wall. There are mild degenerative changes of the visualized lumbar spine. CT/Abdomen/Pelvis without Cont IMPRESSION: Findings consistent with cirrhosis and large amount of ascites. Splenomegaly, spleen measuring 17.4 cm. Nonobstructive stone within the lower pole of the left kidney measuring 1.7 mm. Otherwise unremarkable left kidney and remainder of of abdominal viscera are unremarkable. Possible small hiatal hernia. No signs of bowel obstruction. Electronically Signed: Nicole Lilly MD at 20:46 EST ,
[2023-05-24 19:33] VITALS: BP 106/59; PULSE 115; RESP 18; TEMP 36.8; O2SAT 95
[2023-05-24 19:40] LABS: Absolute Lymphocyte Count 0.95 X10^3/uL (0.83-4.51); Absolute Neutrophil Count 11.6 X10^3/uL (2.0-7.7); Basophil# 0.06 X10^3/uL; Basophil% 0.4 % (0-1); Eosinophil# 0.02 X10^3/uL; Eosinophils% 0.1 % (0-5); Hematocrit 32.4 % (40-54); Hemoglobin 10.9 g/dL (13.0-16.5); Lymphocyte # 0.95 X10^3/ul (0.83-4.51); Lymphocyte % 6.5 % (19-41); Mean Corp Hgb Conc 33.6 g/dL (32-36); Mean Corpuscular Hgb 32.8 pg (27.0-32.0); Mean Corpuscular Volume 97.6 fL (80-94); Mean Platelet Vol. 10.5 fl (6.2-12.0); Monocyte# 1.57 X10^3/uL; Monocyte% 10.8 % (0-10); NRBC Flagged by Analyzer 0.1 % (0-5); Neutrophil # 11.57 X10^3/uL (2.7-7.7); Neutrophil % 79.8 % (47-70); POSITIVE DIFFERENTIAL YES; POSITIVE MORPHOLOGY YES; Platelet Count 183 K/mm3 (150-450); RBC Distribution Width CV 18.5 % (11.6-14.6); RBC Distribution Width SD 65.3 fl (35.1-43.9); Red Blood Count 3.32 M/mm3 (4.6-6.2); White Blood Count 14.5 K/mm3 (4.4-11.0)
[2023-05-24 19:43] LABS: Differential Indicated SCAN CRITERIA MET
[2023-05-24] MEDS: Ketorolac 15 MG/ML Vial IV (19:45)
[2023-05-24] MEDS: 0.9% Normal Saline (500mL Bag) 500 ML 999 ML IV (19:45)
[2023-05-24 20:02] LABS: Anisocytosis 1+; Differential Comment SCANNED
[2023-05-24 20:05] LABS: Alcohol, Blood (Medical)-Serum < 3.0 mg/dL
--- OUTSIDE RECORDS SUMMARY | 2023-05-24 20:07 | XMS RPT_ITS | CCD ---
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 KOEHLER PA-C on 04/03/2023 08:39 AM [facility] 04-02-2023 Gastroenterology Progress note Date of Service April 02, 2023, I signed the patient to Dr. Hassan. Dr. Hassan will resume the patient care tomorrow Digitally Signed by BARBIE VOGEL MD on 04/02/2023 07:56 PM [facility] Cirrhosis with ascites Abdominal distention secondary to [...] 04/05/23 * Chlamydia trachomatis PCR 04/05/23 * [facility] Lab Send out (Blood Specimens) 04/05/23 * Hemochromatosis 04/03/23 * Alkaline Phosphatase Isoenzyme 04/03/23 * Nallely Andrade Virus Antibody Titer 04/03/23 * Cytomegalovirus Antibody 04/03/23 * Gliadin Antibody 04/03/23 * Liver Kidney Microsome IgG Autoabs 04/03/23 * Tissue Transglutaminase Ab (IGA) 04/03/23 [facility] 11-19-2023 NoteSinus tachycardia Electronic Signature: SAQIB GIFFORD MD 04/03/2023 14:34:27[facility] 11-19-2023 Gastroenterology Consult note Date of Service [...] BARBIE VOGEL MD on 04/02/2023 09:21 AM [id number] NoteBody Fluid Path ReviewNegative for malignant cells. [...] TERESE MCCARTNEY DO on 04/02/2023 03:[address] [facility] course Narrative No data available for this section [facility] Summary Purpose Family History No Family History [...] Physician Member Role: ED Physician Address: Address: [address] [place] [address] Name: Cindy Tabor RN Position: JETT RN [...] BE BASED ON THE PRIMARY CLINICAL RECORDS. [facility] [employer] [facility]. provides no warranty or guarantee of the accuracy or completeness of information in this document.
--- NOTE | 2023-05-24 20:10 | RAD_ITS ---
STUDY: X-RAY CHEST REASON FOR EXAM: Male, 62 years old. Weakness TECHNIQUE: Single AP portable view of the chest. COMPARISON: None. FINDINGS: The lungs are underexpanded with bilateral basilar atelectasis, otherwise clear. There is no demonstrated pleural abnormality. Normal size heart. Normal mediastinum and jorge. Normal visualized pulmonary arteries. Normal visualized aortic arch and descending thoracic aorta. There are diffuse degenerative changes of the visualized thoracic spine. There is degenerative osteoarthritis of the bilateral shoulders. There is no demonstrated abnormality of the visualized soft tissue structures of the upper abdomen. RAD/Chest 1 View (Portable) IMPRESSION: Bilateral basilar atelectasis, otherwise no acute cardiac pulmonary disease. Electronically Signed: Nicole Lilly MD at 20:36 EST ,
[2023-05-24 20:12] LABS: Mucous, Urine 0 SEEN /hpf (<or=2+)
[2023-05-24 20:24] LABS: Color, Urine Amber (Yellow); Glucose, Dipstick Normal (Normal); Ketone-Dipstick 5 mg/dl (Negative); Leukocyte Esterase-Dipstick 100 /ul (Negative); Nitrite-Dipstick Positive (Negative); Occult Blood-Urine 150 /ul (Negative); Protein-Dipstick 30 mg/dl (Negative); Urine Clarity Sl. Cloudy (Clear); Urine Urobilinogen 8 mg/dl (Normal)
[2023-05-24 20:29] LABS: Urine Bilirubin Dipstick 3 mg/dL (Negative)
[2023-05-24 20:32] LABS: Amphetamine Urine VISTA NEGATIVE (<1000 ng/mL); Barbiturate Urine VISTA NEGATIVE (< 200 ng/mL); Benzodiazepine Urine VISTA NEGATIVE (< 200 ng/mL); Cocaine Urine VISTA NEGATIVE (< 300 ng/mL); Ecstacy Urine VISTA NEGATIVE (< 500 ng/mL); Methadone Urine VISTA NEGATIVE (< 300 ng/mL); PCP Urine VISTA NEGATIVE (< 25 ng/mL); THC Urine VISTA NEGATIVE (< 50 ng/mL); Vista UDS pH Range 5
[2023-05-24 20:33] LABS: Lactic Acid 5.3 mmol/L (0.4-1.9)
[2023-05-24 20:40] LABS: Red Blood Cells-Urine 0-5 SEEN /hpf (0-5); Squamous Epithelial Cells - UA 0-5 SEEN /hpf (0-5); White Blood Cells 25-50 SEEN /hpf (0-5)
[2023-05-24 20:41] LABS: Bacteria 2+ /hpf (None Seen)
[2023-05-24 20:45] VITALS: BP 149/96; PULSE 111; RESP 16; TEMP 36.6; O2SAT 100
[2023-05-24] MEDS: Ceftriaxone 1 GM/50 ML BAG IV (21:04)
[2023-05-24 21:15] LABS: AST(SGOT) 144 U/L (15-37); Alanine Aminotransfer ALT/SGPT 124 U/L (16-61); Albumin, Serum 1.3 g/dL (3.2-5.0); Alkaline Phosphatase 421 U/L (45-117); Anion Gap 9 (5-15); BUN 42 mg/dL (7-18); BUN/Creat Ratio 31.3 RATIO (10-20); Bilirubin, Direct 7.59 mg/dL (0.00-0.30); Calcium,Total 7.8 mg/dL (8.5-10.1); Chloride 105 mmol/L (98-107); Creatinine, Serum 1.34 mg/dL (0.70-1.30); EST Glomerular Filtration Rate 57 mL/min (>60); Est Glom Filt Rate - Afr Amer 69 mL/min (>60); Globulin 5.9 g/dL (2.2-4.2); Glucose 202 mg/dL (74-106); Potassium 5.2 mmol/L (3.5-5.1); Protein, Total 7.2 g/dL (6.4-8.2); Sodium Level 136 mmol/L (136-145); Troponin-I HS 10 pg/mL (3.0-78.0)
--- NOTE | 2023-05-24 21:34 | HP.PCM_ITS ---
HPI - General General Date of Admission: 05/24/23 Date of Service: 05/24/23 Chief Complaint: weakness HPI Narrative WILLY TODD, is a 62 M with a PMH as outlined who presents via the ED on 05/24/2023 with a complaint of confusion and weakness. He was found to be very confused on admission, and so couldnt do a comprehensive review of systems or get any other history from him. Vitals in the ED were BP of 149/96, SC of 111, RR of 16 and temp of 97.9F as well as oxygen sats of 100% on room air. CBC showed Hb of 10.9, wbc of 14.5, platelets of 183. Chemistry showed sodium of 136, potassium of 5.2 and Cr of 1.34. Lactic acid was 5.3 and total bilirubin was 9.3. Calcium was 7.8 and direct bilirubin was 7.59. AST and ALT as well as ALP were elevated and ammonia level was 70. Urinalysis also showed evidence of UTI with elevated nitrites and leukocyte esterase as well as 2+ bacteria. Urine tox was positive for opiates. Serum alcohol level was less than 3. Chest x-ray showed bilateral basilar atelectasis but no other acute cardiopulmonary process. CT of the abdomen and pelvis showed findings consistent with cirrhosis and large amount of ascites as well as splenomegaly and nonobstructive stone within the lower pole of the left kidney as well as on unremarkable left kidney. CT brain showed mild left posterior scalp swelling and hematoma but was otherwise normal. He has been admitted to be managed for acute encephalopathy due to elevated ammonia level from hepatic encephalopathy and UTI. [facility] Medical History (Updated 05/24/23 @ 21:[address] Adriana Phipps MD) Cirrhosis HIV disease Medical History unable to obtain Home Medications bictegravir 50 mg-emtricitabine 200 mg-tenofovir alafenam 25 mg tablet (Biktarvy) 1 tab PO DAILY 04/28/23 [History Last Taken Unknown] dexamethasone 6 mg tablet 6 mg PO DAILY 10 days #10 tabs 05/20/23 [Rx Last Taken Unknown] hydroxyzine HCl 10 mg tablet 10 mg PO QHS 05/20/23 [History Last Taken Unknown] oxycodone-acetaminophen 5 mg-325 mg tablet (Percocet) 1 tab PO Q6H PRN pain 5 days #20 tabs 05/20/23 [Rx Last Taken Unknown] Allergy/AdvReac Type Severity Reaction Status Date / Time No Known Allergies Allergy Verified 05/24/23 18:29 Social History Smoking Status: Former smoker ROS Review of Systems ROS Unobtainable: due to encephalopathy Vital Signs Vital Signs Vital Signs: 05/24/23 18:30 05/24/23 18:48 05/24/23 19:33 Temperature 95.7 F L 98.3 F Temperature Source Temporal Temporal Pulse Rate 128 H 115 H Respiratory Rate 18 18 Respiratory Effort Normal Non-Labored Respiratory Pattern Normal Blood Pressure 149/120 H 106/59 L Blood Pressure Mean 129 74 Pulse Ox 95 Oxygen Delivery Method Room Air Room Air 05/24/23 20:45 Temperature 97.9 F Temperature Source Temporal Pulse Rate 111 H Respiratory Rate 16 Respiratory Effort Respiratory Pattern Blood Pressure 149/96 H Blood Pressure Mean 113 Pulse Ox 100 Oxygen Delivery Method Room Air Weight Weight: 150 lb Body Mass Index (BMI) 21.4 Physical Exam Const Constitutional Narrative: very restless, moving all extremeties Orientation / Consciousness: confused and lethargic HEENT normocephalic and head/scalp atraumatic Mouth: dry mucous membranes Eyes PERRL and EOMs intact bilaterally Neck no lymphadenopathy and supple Lymph Lymphatic: no lymphadenopathy noted Resp normal respiratory effort, normal air movement and clear to auscultation bilaterally Cardio regular rate, regular rhythm, S1 normal heart sound, S2 normal heart sound and no murmurs GI GI Narrative: abdomen minimally distended, positive fluid thrill, no tenderness, no splenomegaly Palpation: splenomegaly Extremity normal capillary refill Extremity Narrative: bilateral 3+ lower extremity edema General Extremity: no tenderness to palpation of joints or extremities Skin Skin Narrative: jaundice General Skin Exam: no breakdown Neuro Neuro Narrative: confused, lethargicf Motor Exam: general weakness Psych Psych Narrative: confused, restless Results Lab / Micro Data 05/24/23 19:25 05/24/23 19:25 Labs: Laboratory Results - last 24 hr 05/24/23 19:25: WBC 14.5 H, RBC 3.32 L, Hgb 10.9 L, Hct 32.4 L, MCV 97.6 H, MCH 32.8 H, MCHC 33.6, RDW Std Deviation 65.3 H, RDW Coeff of Eloise 18.5 H, Plt Count 183, MPV 10.5, Immature Gran % (Auto) 2.400 H, Neut % (Auto) 79.8 H, Lymph % (Auto) 6.5 L, Sampson % (Auto) 10.8 H, Eos % (Auto) 0.1, Baso % (Auto) 0.4, Absolute Neuts (auto) 11.6 H, Absolute Lymphs (auto) 0.95, Nucleated RBC % 0.1, Differential Comment SCANNED, Diff Path Review May , Anisocytosis 1+, Sodium 136, Potassium 5.2 H, Chloride 105, Carbon Dioxide 22.0, Anion Gap 9, BUN 42 H, Creatinine 1.34 H, Estim Creat Clear Calc 54.30, Est GFR (MDRD) Af Amer 69, Est GFR (MDRD) Non-Af 57 L, BUN/Creatinine Ratio 31.3 H, Glucose 202 H, Lactic Acid 5.3 H*, Calcium 7.8 L, Total Bilirubin 9.30 H, Direct Bilirubin 7.59 H, AST 144 H, ALT 124 H, Alkaline Phosphatase 421 H, Ammonia 70.0 H, Troponin I High Sens 10, Total Protein 7.2, Albumin 1.3 L, Globulin 5.9 H, Ethyl Alcohol < 3.0 05/24/23 20:00: Urine Color Kristine, Urine Clarity Sl. Cloudy, Urine pH 6.0, Ur Specific [place] 1.020, Urine Protein 30 H, Urine Glucose (UA) Normal, Urine Ketones 5 H, Urine Occult Blood 150 H, Urine Nitrite Positive H, Urine Bilirubin 3 H, Urine Urobilinogen 8 H, Ur Leukocyte Esterase 100 H, Urine RBC 0-5 SEEN, Urine WBC 25-50 SEEN, Ur Squamous Epith Cells 0-5 SEEN, Urine Bacteria 2+, Urine Mucus 0 SEEN, Urine Opiates Screen POSITIVE H, Urine Methadone Screen NEGATIVE, Ur Barbiturates Screen NEGATIVE, Ur Phencyclidine Scrn NEGATIVE, Ur Amphetamines Screen NEGATIVE, MDMA (Ecstasy) Screen NEGATIVE, U Benzodiazepines Scrn NEGATIVE, Urine Cocaine Screen NEGATIVE, U Cannabinoids Screen NEGATIVE, Ur Drug Screen Comment Imagaing Radiology Impression Brain CT 05/24/23 19:21 IMPRESSION: Mild left posterior scalp swelling/hematoma. Otherwise normal unenhanced CT scan of the brain. Electronically Signed: Nicole Lilly MD at 20:41 EST , Abdomen/Pelvis CT 05/24/23 19:22 IMPRESSION: Findings consistent with cirrhosis and large amount of ascites. Splenomegaly, spleen measuring 17.4 cm. Nonobstructive stone within the lower pole of the left kidney measuring 1.7 mm. Otherwise unremarkable left kidney and remainder of of abdominal viscera are unremarkable. Possible small hiatal hernia. No signs of bowel obstruction. Electronically Signed: Nicole Lilly MD at 20:46 EST , Chest X-Ray 05/24/23 20:10 IMPRESSION: Bilateral basilar atelectasis, otherwise no acute cardiac pulmonary disease. Electronically Signed: Nicole Lilly MD at 20:36 EST Reading Location ID and State: [email or web address] / [email or web address] , Service support , Assessment & Plan Assessment/Plan (1) Cirrhosis: (2) Hepatic encephalopathy: (3) UTI (urinary tract infection): PLAN: Plan #Acute encephalopathy due to UTI and liver cirrhosis * Admit to PCU * CT of the brain showed mild left posterior scalp swelling/hematoma but otherwise unremarkable. * Total ammonia level is 70. No baseline to compare with. Patient has liver cirrhosis due to alcohol use and has frequent paracentesis every 2 weeks. * Abdomen is currently distended. Liver enzymes also elevated. * Urinalysis showed evidence of UTI. Started on IV ceftriaxone for UTI and started on rectal lactulose, to switch to p.o. lactulose when patient's mentation improves. * PT OT consult. Fall precautions. * #Hyperkalemia: Potassium is 5.2. Will give rectal Kayexalate. #MATT: Creatinine 1.34 with a baseline of 0.88. Will hydrate very gently with IV fluids. Likely due to decreased intake and hepatorenal syndrome. Will trend creatinine. If it trends up upwards, consider nephrology consult. #Transaminitis: * Total bilirubin is 9.7 with direct bilirubin of 7.9. AST, ALT and ALP also elevated. * Likely due to underlying liver cirrhosis. Will trend liver enzymes. * If patient does not improve, will consult gastroenterology. * #Recent COVID-19 diagnosis: Was diagnosed about 4 days ago with COVID. Currently on room air. Asymptomatic. Completed 10-day course of dexamethasone. #History of HIV: On Biktarvy 1 tablet daily DVT prophylaxis: SCDs CODE STATUS: Presumed full code as patient is too lethargic to do any review of systems. Total time spent on evaluation and management of patient, reviewing chart and specialist notes, discussion with nursing and ancillary staff as well as documentation: 82 mins Charges/Coding Visit Charges Inpatient E&M: 16563 Init Hosp L3
[2023-05-24 21:43] VITALS: BP 91/58; PULSE 112; RESP 16; TEMP 36.7; O2SAT 100
[2023-05-24] MEDS: 0.9% Normal Saline (1000mL) 1,000 ML 999 ML IV (21:51)
[2023-05-24] MEDS: Lactulose 20 GM/30 ML UDC 200 GM RC (21:56)
--- OUTSIDE RECORDS SUMMARY | 2023-05-24 22:17 | XMS RPT_ITS | CCD ---
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 by BARBIE VOGEL MD on 04/02/2023 07:56 PM [facility] Cirrhosis with ascites Abdominal distention secondary to [...] 04/05/23 * Chlamydia trachomatis PCR 04/05/23 * [facility] Send out (Blood Specimens) 04/05/23 * Hemochromatosis 04/03/23 * Alkaline Phosphatase Isoenzyme 04/03/23 * Nallely Andrade Virus Antibody Titer 04/03/23 * Cytomegalovirus Antibody 04/03/23 * Gliadin Antibody 04/03/23 * Liver Kidney Microsome IgG Autoabs 04/03/23 * Tissue Transglutaminase Ab (IGA) 04/03/23 [facility] 11-19-2023 NoteSinus tachycardia Electronic Signature: SAQIB GIFFORD MD 04/03/2023 14:34:27[facility] 11-19-2023 Gastroenterology Consult note Date of Service [...] BARBIE VOGEL MD on 04/02/2023 09:21 AM [id number] NoteBody Fluid Path ReviewNegative for malignant cells. [...] TERESE MCCARTNEY DO on 04/02/2023 03:30 AM [facility] course Narrative No data available for this section [facility] Summary Purpose Family History No Family History [...] Member Role: ED Physician Address: Address: [address] [place] [address] Name: Cindy Tabor RN Position: JETT RN [...] BE BASED ON THE PRIMARY CLINICAL RECORDS. [facility] [facility] provides no warranty or guarantee of the accuracy or completeness of information in this document.
[2023-05-24 22:44] VITALS: BP 106/86; PULSE 120; RESP 16; TEMP 36.7; O2SAT 100
[2023-05-24 23:14] VITALS: BMI 26.6
[2023-05-24 23:19] VITALS: BP 128/66; PULSE 120; RESP 12; TEMP 36; O2SAT 100
[2023-05-24 23:35] LABS: Reflex Lactate? Y
[2023-05-25] VITALS (8 sets, daily range): BP systolic 125–164; BP diastolic 75–87; PULSE 119–128; RESP 16–18; TEMP 36.3–36.6; O2SAT 94–100
--- NOTE | 2023-05-25 | IMM_PTH ---
PATHOLOGY RESULTS PATIENT: WILLY TODD LOC: MS3 U#:[id number] AGE/SX: 62/M ROOM: ME317 RE05/24/[address]: Dr. Sanjiv Bloom MD : 1960 BED: 1 DIS: 06/03/2023 SPEC #: [id number] RECD: 05/29/23 13:14 STATUS: BRANDEN REJessica #: [id number] NEIL: 05/25/23 00:[address]: Skinny Daly DEPT: IMMUNOHISTOCHEMISTRY RECD BY: Beverly Prieto ENTERED: 05/29/23 13:16 SP TYPE: IMMUNO OTHR DR: MD Dr. Sanjiv Rey MD Mark Yoder, EVENT SALES ASSISTANT-C Tissues: PARACENTESIS FLUID Procedures: Saul Ret (add) CK20 (add) CK5-6 (add) CK7 (add) KI-67 (add) P53 (add) Pankeratin (initial) P40 (add) CD68 (ADD) PHYSICIAN & [place] [id number] SPECIMEN INFORMATION: Tissue Source: Paracentesis fluid Clinical Info: Ascites Specimen Number: [id number] CPT code: 53872, 72975 x8 METHODOLOGY: Deparaffinized sections of prefer/formalin-fixed tissue or PAP/DQ stained slides are incubated with monoclonal/polyclonal antibodies/oligonucleotide probes. Localization is made via biotin free immunoperoxidase method. Appropriate controls are performed and reacted as expected. Results on target cell population are indicated in the following table: RESULTS: ANTIBODY / CLONE RESULT AE1-3 (AE1/AE3/PCK26) positive, rare CK7 (OV-TL12/30) positive, rare CK20 (KS20.8) negative CD68 (KP-1) positive CALRET (polyclonal) positive CK5-6 (D5 & 1684) positive, rare P40 (BC28) negative P53 (DO-7) negative, null pattern Ki-67 (30-9) positive, rare cell These tests were developed and their performance characteristics determined by [facility]. They may not have been cleared or approved by the U.S. Food and Drug Administration. The FDA has determined that such clearance or approval is not necessary. The above immunohistochemical/dualISH markers are ordered and reviewed by the Pathologist. INTERPRETATION: Paracentesis fluid (cell block): No evidence of malignancy. AM:israel 05/30/2023
[2023-05-25 00:42] LABS: Lactic Acid 4.4 mmol/L (0.4-1.9)
[2023-05-25] MEDS: Lactulose 20 GM/30 ML UDC 200 GM RC ×2 (03:00→05:49)
[2023-05-25] MEDS: Ondansetron 4 MG/2 ML Vial IV (06:06)
--- NOTE | 2023-05-25 07:50 | PN.HOSP_ITS ---
Reason for Visit Reason for Visit: Diagnoses Unspecified cirrhosis of liver (05/24/23) Hepatic encephalopathy (05/24/23) Urinary tract infection, site not specified (05/24/23) Subjective Subjective Patient is a 62-year-old gentleman with history of cirrhosis of the liver who presented to the emergency department with altered mental status and assessment of acute hepatic encephalopathy made admitted to regular nursing floor for further management Objective Data Objective Data Vital Signs: Vital Signs Temp Pulse Resp BP Pulse Ox O2 Del Method 97.3 F L 121 H 16 125/75 H 100 Room Air 05/25/23 03:18 05/25/23 03:18 05/25/23 03:18 05/25/23 03:18 05/25/23 03:18 05/25/23 03:21 Oxygen Delivery Method Room Air Weight: 74.843 kg Body Mass Index (BMI) 26.6 Intake & Output: Intake and Output for Last 24 Hours 05/23/23 05/24/23 05/25/23 23:59 23:59 23:59 Intake Total 1550 / 1550 0 / 0 Output Total 300 / 300 Balance 1550 / 1550 -300 / -300 Lab / Micro Data 05/24/23 19:25 05/24/23 19:25 Labs: Laboratory Results - last 24 hr 05/24/23 19:25: WBC 14.5 H, RBC 3.32 L, Hgb 10.9 L, Hct 32.4 L, MCV 97.6 H, MCH 32.8 H, MCHC 33.6, RDW Std Deviation 65.3 H, RDW Coeff of Eloise 18.5 H, Plt Count 183, MPV 10.5, Immature Gran % (Auto) 2.400 H, Neut % (Auto) 79.8 H, Lymph % (Auto) 6.5 L, Pine % (Auto) 10.8 H, Eos % (Auto) 0.1, Baso % (Auto) 0.4, Absolute Neuts (auto) 11.6 H, Absolute Lymphs (auto) 0.95, Nucleated RBC % 0.1, Differential Comment SCANNED, Diff Path Review May foll, Anisocytosis 1+, Sodium 136, Potassium 5.2 H, Chloride 105, Carbon Dioxide 22.0, Anion Gap 9, BUN 42 H, Creatinine 1.34 H, Estim Creat Clear Calc 54.30, Est GFR (MDRD) Af Amer 69, Est GFR (MDRD) Non-Af 57 L, BUN/Creatinine Ratio 31.3 H, Glucose 202 H, Lactic Acid 5.3 H*, Calcium 7.8 L, Total Bilirubin 9.30 H, Direct Bilirubin 7.59 H, AST 144 H, ALT 124 H, Alkaline Phosphatase 421 H, Ammonia 70.0 H, Troponin I High Sens 10, Total Protein 7.2, Albumin 1.3 L, Globulin 5.9 H, Ethyl Alcohol < 3.0 05/24/23 20:00: Urine Color Kristine, Urine Clarity Sl. Cloudy, Urine pH 6.0, Ur Specific [place] 1.020, Urine Protein 30 H, Urine Glucose (UA) Normal, Urine Ketones 5 H, Urine Occult Blood 150 H, Urine Nitrite Positive H, Urine Bilirubin 3 H, Urine Urobilinogen 8 H, Ur Leukocyte Esterase 100 H, Urine RBC 0-5 SEEN, Urine WBC 25-50 SEEN, Ur Squamous Epith Cells 0-5 SEEN, Urine Bacteria 2+, Urine Mucus 0 SEEN, Urine Opiates Screen POSITIVE H, Urine Methadone Screen NEGATIVE, Ur Barbiturates Screen NEGATIVE, Ur Phencyclidine Scrn NEGATIVE, Ur Amphetamines Screen NEGATIVE, MDMA (Ecstasy) Screen NEGATIVE, U Benzodiazepines Scrn NEGATIVE, Urine Cocaine Screen NEGATIVE, U Cannabinoids Screen NEGATIVE, Ur Drug Screen Comment 05/24/23 23:50: Lactic Acid 4.4 H* Radiography Diagnostic Testing: Radiology Impression Brain CT 05/24/23 19:21 IMPRESSION: Mild left posterior scalp swelling/hematoma. Otherwise normal unenhanced CT scan of the brain. Electronically Signed: Nicole Lilly MD at 20:41 EST , Abdomen/Pelvis CT 05/24/23 19:22 IMPRESSION: Findings consistent with cirrhosis and large amount of ascites. Splenomegaly, spleen measuring 17.4 cm. Nonobstructive stone within the lower pole of the left kidney measuring 1.7 mm. Otherwise unremarkable left kidney and remainder of of abdominal viscera are unremarkable. Possible small hiatal hernia. No signs of bowel obstruction. Electronically Signed: Nicole Lilly MD at 20:46 EST , Chest X-Ray 05/24/23 20:10 IMPRESSION: Bilateral basilar atelectasis, otherwise no acute cardiac pulmonary disease. Electronically Signed: Nicole Lilly MD at 20:36 EST , Physical Exam Narrative GENERAL: Lethargic barely moves with sternal rub HEENT: Atraumatic; normocephalic EYES; Anicteric, icteric NECK; supple, normal thyroid, RESPIRATORY: Diminished to auscultation CARDIOVASCULAR: Regular S1 S2, GI: soft, normoactive bowel sounds, slight distention of the abdomen : No Renal angle tenderness; EXTREMITIES: No edema, no clubbing, MUSCULOSKELETAL: no muscle wasting NEURO: Lethargic SKIN: No Rash PSYCH; unable to assess Assessment & Plan Assessment/Plan (1) Cirrhosis: (2) Hepatic encephalopathy: (3) UTI (urinary tract infection): PLAN: Plan Patient is a 62-year-old gentleman with history of cirrhosis of the liver who presented to the emergency department with altered mental status and assessment of acute hepatic encephalopathy made admitted to regular nursing floor for further management 1. Acute hepatic encephalopathy ? In a patient with liver cirrhosis admitted to regular nursing floor. Patient ordered lactulose via enema. Plan is to place an order for NG tube for l actulose to be administered through the NG 2. Acute cystitis ? Complicating patient care patient started on ceftriaxone cultures sent 3. Ascites ? Secondary to patient underlying cirrhosis of the liver patient undergoes scheduled ultrasound-guided paracentesis every 2 weekly 4. History of HIV -On Biktarvy 1 tablet daily 5. Lactic acidosis ? Attributed to patient cirrhosis of the liver 6. Acute kidney injury ? Baseline creatinine 0.88 creatinine on admission was 1.34 patient be rehydrate d gently given his cirrhosis. Subsequent monitoring with daily BMPs ordered 7. COVID 19 diagnosis ? Patient completed a 10-day course with dexamethasone 8. Acute transaminitis ? Secondary to patient underlying cirrhosis of the liver 9. DVT prophylaxis ? Bilateral SCDs Time spent in the patient's overall evaluation,decision-making process, review of diagnostic data, adjustment of management, discussion with other providers, nursing nursing and ancillary staff involved in patient's care documentation, 50 Minutes Charges/Coding Visit Charges Inpatient E&M: 69904 Subs Hosp L3
[2023-05-25 08:59] LABS: Absolute Neutrophil Count 8.9 X10^3/uL (2.0-7.7); Basophil# 0.04 X10^3/uL; Basophil% 0.4 % (0-1); Hematocrit 27.6 % (40-54); Hemoglobin 9.3 g/dL (13.0-16.5); Mean Corp Hgb Conc 33.7 g/dL (32-36); Mean Corpuscular Hgb 33.3 pg (27.0-32.0); Mean Corpuscular Volume 98.9 fL (80-94); Mean Platelet Vol. 10.3 fl (6.2-12.0); Monocyte# 0.99 X10^3/uL; Monocyte% 8.9 % (0-10); NRBC Flagged by Analyzer 0.3 % (0-5); Neutrophil # 8.91 X10^3/uL (2.7-7.7); Neutrophil % 80.2 % (47-70); POSITIVE MORPHOLOGY YES; Platelet Count 132 K/mm3 (150-450); RBC Distribution Width CV 18.4 % (11.6-14.6); RBC Distribution Width SD 65.5 fl (35.1-43.9); Red Blood Count 2.79 M/mm3 (4.6-6.2); White Blood Count 11.1 K/mm3 (4.4-11.0)
[2023-05-25 09:24] LABS: International Normalized Ratio 2.1; Prothrombin Time (Protime)PT. 24.1 SECONDS (11.7-14.9)
[2023-05-25 09:30] LABS: ALB/GLOB Ratio 0.2 RATIO (0.9-2.4); AST(SGOT) 126 U/L (15-37); Alanine Aminotransfer ALT/SGPT 107 U/L (16-61); Albumin, Serum 1.1 g/dL (3.2-5.0); Alkaline Phosphatase 368 U/L (45-117); Anion Gap 6 (5-15); BUN 46 mg/dL (7-18); BUN/Creat Ratio 39.3 RATIO (10-20); Calcium,Total 7.5 mg/dL (8.5-10.1); Chloride 110 mmol/L (98-107); Creatinine, Serum 1.17 mg/dL (0.70-1.30); EST Glomerular Filtration Rate 67 mL/min (>60); Est Glom Filt Rate - Afr Amer 81 mL/min (>60); Estimated Creatinine Clearance 58.32 ml/min; Globulin 4.9 g/dL (2.2-4.2); Glucose 147 mg/dL (74-106); Potassium 4.9 mmol/L (3.5-5.1); Sodium Level 138 mmol/L (136-145)
[2023-05-25 10:32] LABS: Anisocytosis 2+; Differential Comment SCANNED; Macrocytosis 1+; Microcytosis 1+
--- NOTE | 2023-05-25 10:39 | RAD_ITS ---
STUDY: X-RAY - ABDOMEN/PELVIS REASON FOR EXAM: Male, 62 years old. ng tube placement TECHNIQUE: Single AP view of the abdomen / pelvis. COMPARISON: None. FINDINGS: The tip of the nasogastric tube is in the body of the stomach. RAD/Abdomen Single View (Portable) IMPRESSION: The tip of the nasogastric tube is in the body of the stomach. Electronically Signed: Khalif Larson MD at 11:09 EST ,
[2023-05-25] MEDS: dexAMETHasone 4 MG Tablet 6 MG PO (11:44)
[2023-05-25] MEDS: Lactulose 20 GM/30 ML UDC NG ×3 (11:44→23:22)
--- NOTE | 2023-05-25 12:30 | CASEMGMT ---
RN?CM?SUPERVISOR INSPECTION AND TESTING?CM?spoke w/pt's sister, Karol, for initial transition planning/care coordination?assessment at this time d/t pt confusion. RN?CM?introduced self and role at [facility].? Care providers, pharmacy, and demographics verified/updated at this time. PCP: [facility] Layton Bailey Specialists: GI or stock letterer that manages pt's cirrhosis is from [place], but Karol does not remember his name. Dr Stephan Palafox, ID in [place]. Preferred Pharmacy[facility] Insurance: [employer]. Prescription Benefit:?unknown. Living Will/HPOA:? Karol does not think pt currently has LW/HCPOA LNOK: Pt has a son, Dat Jaeger (~35 yrs old) who lives in [place]. Karol states son has cut us off and she does not think pt has spoken to him for a couple of yrs. Pt has 3 siblings: Karol Mendes, Skinny Jaeger, and Layton Jaeger. Pt's parents are . Living Arrangements: Lives alone in 2-story home w/4 steps to enter. [facility]. 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 Transportation:?Pt drives DME: Karol states pt does not use any DME, but he does have a walker available if needed. HHC/SNF: No hx of either. PLAN:??TBD Bee BUSBYN?RN?CM
[2023-05-25 13:43] LABS: Pathologist Review Reviewed
[2023-05-25] MEDS: Lidocaine 2% (20 ml mdv) 20 ML Vial (13:46)
--- NOTE | 2023-05-25 13:50 | FLU_PTH ---
PATHOLOGY RESULTS PATIENT: WILLY TODD LOC: MS3 U#:[id number] AGE/SX: 62/M ROOM: NE317 RE05/24/[address]: Dr. Sanjiv Bloom MD : 1960 BED: 1 DIS: 06/03/2023 SPEC #: [id number] RECD: 05/25/23 14:10 STATUS: BRANDEN ADILIA #: [id number] NEIL: 05/25/23 13:[address]: Skinny Daly DEPT: CYTOLOGY RECD BY: Verónica Gibbons ENTERED: 05/26/23 08:09 SP TYPE: Fluid OTHR DR: MD Layton Rey, MANAGER COMPETITIVE INTELLIGENCE-C Tissues: PARACENTESIS FLUID Procedures: Special Stain Group II Surgery Specimen Level IV Cytospin Fluid HEADER OPERATION: Paracentesis PRE-OP DIAGNOSIS: Ascites TISSUE SUBMITTED: Paracentesis fluid for cytology DIAGNOSIS CYTOLOGY Paracentesis fluid for cytology (cytospin and cell block): Negative for malignant cells. See comment. AM:israel 05/29/2023 COMMENT Mucin stain with matched control was used in the evaluation of this case. Immunohistochemistry ([id number]) supports the above diagnosis. CYTOLOGY STUDY Slides are reviewed. CYTOLOGY GROSS Received is 80 ml of yellow clear fluid labeled with the patient's name and and designated per the requisition as paracentesis. Submitted for cytology preparation including cell block. / israel 05/26/2023 TC:5 CPT: 75933, 71564, 04521
[2023-05-25 14:42] LABS: Body Fluid Mononuclear WBC # 0.058 10^3/uL; Body Fluid Mononuclear WBC % 54.7 %; Body Fluid Polynuclear WBC # 0.048 10^3/uL; Body Fluid Polynuclear WBC % 45.3 %; Body Fluid Total Cells Counted 0.117 10^3/ul; White Blood Count/Body Fluid 0.106 10^3/uL
--- NOTE | 2023-05-25 15:17 | PCM.OP.PRO ---
Procedure Report Date of Procedure: 05/25/23 Assessment & Plan Assessment/Plan (1) Ascites due to alcoholic cirrhosis: PLAN: PROCEDURE: Ultrasound guided paracentesis ORDERING PROVIDER: Dr. Daly INDICATION: Male, 62 years old. Ascites. PROVIDER: TORIE Avila TECHNIQUE: The risks, benefits, and alternatives to the procedure were explained to the patient's sister, telephone consent was obtained. The specific risks of bleeding, infection, and damage to bowel were detailed and accepted. Witnessed informed consent was obtained. The abdomen was ultrasonographically surveyed. An appropriate pocket of fluid was identified in the right lower quadrant. The skin was prepped with chlorhexidine and sterile field established. 2% lidocaine was used for local anesthetic. Using ultrasound guidance, the peritoneal cavity was accessed with a 5-[place] Islander paracentesis needle/catheter system. The trocar was removed. A total of 4800 ml of clear yellow colored fluid was removed from the peritoneal cavity. 100 mL of this fluid was collected and sent to the laboratory, as per requesting physician. The catheter was removed and a sterile dressing was applied. The procedure was well tolerated. IMPRESSION: Successful ultrasound-guided paracentesis with right lower quadrant access site. Procedures Radiology Radiology US Procedures: 90790 Paracentesis
[2023-05-25 15:30] LABS: Auto B Fluid Analyzer BKGD Ct COUNTS W/IN LIMITS (W/IN LIMITS); Lymphocytes 17 %; Macrophages 7 %; Mesothelial Cells 18 %; Monocytes 15 %; Neutrophil (Segs) 43 %
[2023-05-25 15:31] LABS: Appearance/Body Fluid CLEAR; Body Fluid QC Type(s) BF1Q; Color/Body Fluid YELLOW; Glucose, Body Fluid 163 mg/dL (40-70); LDH,Body Fluid 41 Units/L (Not Establ.); Protein, Body Fluid 0.3 g/dL (Not Establ.); Red Cell Count/Body Fluid 64 /mm3; Source- Body Fluid PERITONEAL FLUID
[2023-05-25] MEDS: Ceftriaxone 1 GM/50 ML BAG IV (23:17)
--- NOTE | 2023-05-26 01:06 | NURSING ---
this RN gave PT hydroxyzine 10mg crushed in water through Pt's NG tube at 2315 on 05/25/2023. It was originally PO and so I asked pharmacy to change it to be able to send it through his NG tube. Pharmacy did and scheduled the next dose for 05/26 while DCing the PO dose for 05/25. Therefore I was unable to chart the Ng dose I gave without taking the dose from 05/26. I did give it though and am charting it here.
[2023-05-26 03:30] VITALS: BP 109/83; PULSE 133; RESP 18; TEMP 36.9; O2SAT 97
[2023-05-26] MEDS: QUEtiapine 25 MG Tablet PO (03:40)
[2023-05-26 06:57] LABS: Absolute Lymphocyte Count 0.86 X10^3/uL (0.83-4.51); Absolute Neutrophil Count 6.2 X10^3/uL (2.0-7.7); Basophil# 0.03 X10^3/uL; Basophil% 0.4 % (0-1); Hematocrit 26.4 % (40-54); Hemoglobin 8.9 g/dL (13.0-16.5); Lymphocyte # 0.86 X10^3/ul (0.83-4.51); Lymphocyte % 10.2 % (19-41); Mean Corp Hgb Conc 33.7 g/dL (32-36); Mean Corpuscular Hgb 33.2 pg (27.0-32.0); Mean Corpuscular Volume 98.5 fL (80-94); Mean Platelet Vol. 10.7 fl (6.2-12.0); Monocyte# 1.04 X10^3/uL; Monocyte% 12.3 % (0-10); NRBC Flagged by Analyzer 0.2 % (0-5); Neutrophil # 6.19 X10^3/uL (2.7-7.7); Neutrophil % 73.2 % (47-70); Platelet Count 127 K/mm3 (150-450); RBC Distribution Width CV 18.5 % (11.6-14.6); RBC Distribution Width SD 64.9 fl (35.1-43.9); Red Blood Count 2.68 M/mm3 (4.6-6.2); White Blood Count 8.5 K/mm3 (4.4-11.0)
[2023-05-26 07:16] LABS: Ammonia < 10.0 umol/L (11-32)
[2023-05-26 07:20] LABS: AST(SGOT) 173 U/L (15-37); Alanine Aminotransfer ALT/SGPT 116 U/L (16-61); Albumin, Serum 1.1 g/dL (3.2-5.0); Alkaline Phosphatase 313 U/L (45-117); Anion Gap 7 (5-15); BUN 40 mg/dL (7-18); BUN/Creat Ratio 36.7 RATIO (10-20); Bilirubin, Direct 5.87 mg/dL (0.00-0.30); Calcium,Total 7.5 mg/dL (8.5-10.1); Chloride 112 mmol/L (98-107); Creatinine, Serum 1.09 mg/dL (0.70-1.30); EST Glomerular Filtration Rate 73 mL/min (>60); Est Glom Filt Rate - Afr Amer 88 mL/min (>60); Globulin 4.7 g/dL (2.2-4.2); Glucose 134 mg/dL (74-106); Magnesium 2.3 mg/dL (1.6-2.6); Phosphorus 2.9 mg/dL (2.5-4.9); Potassium 4.2 mmol/L (3.5-5.1); Protein, Total 5.8 g/dL (6.4-8.2); Sodium Level 142 mmol/L (136-145)
--- NOTE | 2023-05-26 08:20 | PCM.PN.HOSP ---
Reason for Visit Reason for Visit: Diagnoses Alcoholic cirrhosis of liver with ascites (05/24/23) Unspecified cirrhosis of liver (05/24/23) Hepatic encephalopathy (05/24/23) Urinary tract infection, site not specified (05/24/23) Subjective Subjective Patient seen much more awake and interactive this a.m. CT of the brain obtained the day prior did show Mild left posterior scalp swelling/hematoma. Otherwise normal unenhanced CT scan of the brain. MRI subsequently ordered for further eval given patient's significant encephalopathy Objective Data Objective Data Vital Signs: Vital Signs Temp Pulse Resp BP Pulse Ox O2 Del Method 98.4 F 133 H 18 109/83 H 97 Room Air 05/26/23 03:30 05/26/23 03:30 05/26/23 03:30 05/26/23 03:30 05/26/23 03:30 05/26/23 03:30 Oxygen Delivery Method Room Air Weight: 74.843 kg Body Mass Index (BMI) 26.6 Intake & Output: Intake and Output for Last 24 Hours 05/24/23 05/25/23 05/26/23 23:59 23:59 23:59 Intake Total 1550 / 1550 150 / 150 400 / 400 Output Total 5550 / 5850 550 / 550 Balance 1550 / 1550 -5400 / -5700 -150 / -150 Lab / Micro Data 05/26/23 06:40 05/26/23 06:40 Labs: Laboratory Results - last 24 hr 05/24/23 19:25: Diff Path Review Reviewed 05/25/23 08:08: WBC 11.1 H, RBC 2.79 L, Hgb 9.3 L, Hct 27.6 L, MCV 98.9 H, MCH 33.3 H, MCHC 33.7, RDW Std Deviation 65.5 H, RDW Coeff of Eloise 18.4 H, Plt Count 132 L, MPV 10.3, Immature Gran % (Auto) 1.500 H, Neut % (Auto) 80.2 H, Lymph % (Auto) 9.0 L, [place] % (Auto) 8.9, Eos % (Auto) 0.0, Baso % (Auto) 0.4, Absolute Neuts (auto) 8.9 H, Absolute Lymphs (auto) 1.00, Nucleated RBC % 0.3, Differential Comment SCANNED, Anisocytosis 2+, Microcytosis 1+, Macrocytosis 1+, PT 24.1 H, INR 2.1, Sodium 138, Potassium 4.9, Chloride 110 H, Carbon Dioxide 22.0, Anion Gap 6, BUN 46 H, Creatinine 1.17, Estim Creat Clear Calc 58.32, Est GFR (MDRD) Af Amer 81, Est GFR (MDRD) Non-Af 67, BUN/Creatinine Ratio 39.3 H, Glucose 147 H, Calcium 7.5 L, Total Bilirubin 8.20 H, AST 126 H, ALT 107 H, Alkaline Phosphatase 368 H, Total Protein 6.0 L, Albumin 1.1 L, Globulin 4.9 H, Albumin/Globulin Ratio 0.2 L 05/25/23 13:50: Fluid Source PERITONEAL FLUID, Fluid Color YELLOW, Fluid Appearance CLEAR, Fluid WBC 0.106, Fluid RBC 64, Fluid Tot Cell Count 0.117, Fld Polynuclear WBCs # 0.048, Fld Polynuclear WBCs % 45.3, Fluid Mononuclear WBCs 0.058, Fld Mononuclear WBCs % 54.7, Fluid Neutrophils 43, Fluid Lymphocytes 17, Fluid Monocytes 15, Fluid Macrophages 7, Fld Mesothelial Cells 18, Fl Pathologist Comment May follow, Fluid Glucose 163 H, Fluid Total Protein 0.3, Fluid LDH 41, Fluid Comment 2 SEE COMMENT 05/25/23 14:43: Ammonia 13.0 05/26/23 06:40: WBC 8.5, RBC 2.68 L, Hgb 8.9 L, Hct 26.4 L, MCV 98.5 H, MCH 33.2 H, MCHC 33.7, RDW Std Deviation 64.9 H, RDW Coeff of Eloise 18.5 H, Plt Count 127 L, MPV 10.7, Immature Gran % (Auto) 3.900 H, Neut % (Auto) 73.2 H, Lymph % (Auto) 10.2 L, [place] % (Auto) 12.3 H, Eos % (Auto) 0.0, Baso % (Auto) 0.4, Absolute Neuts (auto) 6.2, Absolute Lymphs (auto) 0.86, Nucleated RBC % 0.2, Sodium 142, Potassium 4.2, Chloride 112 H, Carbon Dioxide 23.0, Anion Gap 7, BUN 40 H, Creatinine 1.09, Estim Creat Clear Calc 62.60, Est GFR (MDRD) Af Amer 88, Est GFR (MDRD) Non-Af 73, BUN/Creatinine Ratio 36.7 H, Glucose 134 H, Calcium 7.5 L, Phosphorus 2.9, Magnesium 2.3, Total Bilirubin 8.20 H, Direct Bilirubin 5.87 H, AST 173 H, ALT 116 H, Alkaline Phosphatase 313 H, Ammonia < 10.0 L, Total Protein 5.8 L, Albumin 1.1 L, Globulin 4.7 H Micro: Microbiology 05/24/23 20:00 Urine Catheter - Freed Urine Culture - Preliminary Presumptive E. coli Radiography Diagnostic Testing: Radiology Impression KUB X-Ray 05/25/23 10:39 IMPRESSION: The tip of the nasogastric tube is in the body of the stomach. Electronically Signed: Khalif Larson MD at 11:09 EST , Physical Exam Narrative GENERAL: Lethargic barely moves with sternal rub HEENT: Atraumatic; normocephalic EYES; Anicteric, icteric NECK; supple, normal thyroid, RESPIRATORY: Diminished to auscultation CARDIOVASCULAR: Regular S1 S2, GI: soft, normoactive bowel sounds, slight distention of the abdomen : No Renal angle tenderness; EXTREMITIES: No edema, no clubbing, MUSCULOSKELETAL: no muscle wasting NEURO: Lethargic SKIN: No Rash PSYCH; unable to assess Assessment & Plan Assessment/Plan (1) Cirrhosis: (2) Hepatic encephalopathy: (3) UTI (urinary tract infection): PLAN: Plan Patient is a 62-year-old gentleman with history of cirrhosis of the liver who presented to the emergency department with altered mental status and assessment of acute hepatic encephalopathy made admitted to regular nursing floor for further management 1. Acute hepatic encephalopathy ? In a patient with liver cirrhosis admitted to regular nursing floor. Patient ordered lactulose via enema. Plan is to place an order for NG tube for lactulose to be administered through the NG -05/26/2023. Patient seen much more awake and interactive this a.m. CT of the brain obtained the day prior did show Mild left posterior scalp swelling/hematoma. Otherwise normal unenhanced CT scan of the brain. MRI subsequently ordered for further eval given patient's significant encephalopathy 2. Acute cystitis ? Complicating patient care patient started on ceftriaxone cultures sent 3. Ascites ? Secondary to patient underlying cirrhosis of the liver patient undergoes scheduled ultrasound-guided paracentesis every 2 weekly 4. History of HIV -On Biktarvy 1 tablet daily?05/26/2023 Case was discussed with pharmacy patient HIV medication apparently contraindicated in the presence of acute hepatic injury. Biktarvy held. Plan is to hold on discharge till patient is followed by his HIV specialist Dr. Rothman at [facility] in [place] 5. Lactic acidosis ? Attributed to patient cirrhosis of the liver 6. Acute kidney injury ? Baseline creatinine 0.88 creatinine on admission was 1.34 patient be rehydrated gently given his cirrhosis. Subsequent monitoring with daily BMPs ordered 7. COVID 19 diagnosis ? Patient completed a 10-day course with dexamethasone 8. Acute transaminitis ? Secondary to patient underlying cirrhosis of the liver 9. Anemia - Secondary to chronic disorder monitoring H&H and transfuse if patient becomes symptomatic or hemoglobin falls below 7 10. DVT prophylaxis ? Bilateral SCDs Time spent in the patient's overall evaluation,decision-making process, review of diagnostic data, adjustment of management, discussion with other providers, nursing nursing and ancillary staff involved in patient's care documentation, 50 Minutes Charges/Coding Visit Charges Inpatient E&M: 10499 [facility] Hosp L3
[2023-05-26] MEDS: LORazepam 0.5 MG Tablet PO (09:11)
[2023-05-26] MEDS: dexAMETHasone 4 MG Tablet 6 MG PO (09:11)
[2023-05-26 09:13] VITALS: BP 133/99; PULSE 127; RESP 16; TEMP 36.2; O2SAT 100
--- NOTE | 2023-05-26 09:30 | MRI_ITS ---
EXAM: MR HEAD WITHOUT AND WITH INTRAVENOUS CONTRAST CLINICAL INDICATION: Altered mental status. TECHNIQUE: Multiplanar and multisequence MR images of the brain were obtained without and with intravenous contrast. CONTRAST: 15 mL of IV Clariscan. COMPARISON: CT head without contrast 05/24/2023. FINDINGS: BRAIN AND EXTRA-AXIAL SPACES: Few subcortical white matter T2 FLAIR hyperintensity foci in the frontal lobes and left posterior periatrial white matter are chronic white matter ischemic changes. No intra- or extra-axial hemorrhage. No intracranial mass or mass effect. Posterior fossa structures are unremarkable. Ventricles are appropriate for age. No hydrocephalus. Basal cisterns are patent. No abnormal enhancing lesions intra-axially and extra-axially. SELLA: Unremarkable. Normal sella turcica, pituitary gland, infundibular stalk, optic chiasm and hypothalamus. AUDITORY SYSTEM: Unremarkable. The internal auditory canals are patent. BONES/JOINTS: Unremarkable. No discrete lytic or blastic abnormalities. SINUSES: Unremarkable as visualized. Clear. MASTOID AIR CELLS: Unremarkable as visualized. Clear. ORBITS: Unremarkable as visualized. Both globes, extraocular muscles, optic nerves and retrobulbar fat appear unremarkable. VASCULATURE: Unremarkable as visualized. Normal flow voids in the major intracranial circulation. MRI/Brain W/WO Contrast IMPRESSION: 1. No MRI evidence of acute or subacute ischemic infarct or any abnormal enhancing lesions intra-axially and extra-axially. 2. Few chronic white matter ischemic changes in both cerebral hemispheres. Electronically Signed: Chris Dejesus MD at 10:45 EST ,
[2023-05-26 09:53] LABS: Pathologist Comment/Body Fluid Reviewed
[2023-05-26] MEDS: Lactulose 20 GM/30 ML UDC NG ×2 (10:55→22:23)
--- NOTE | 2023-05-26 12:27 | DS.PCM_ITS ---
Providers Date of Admission: 05/24/23 Date of Discharge: 05/26/23 Primary Care Physician: MARISELA Call Reason For Visit: ACUTE HEPATIC ENCEPHALOPATHY Diagnosis Discharge Diagnosis (1) Cirrhosis: Status: Acute Code(s): K74.60 - Unspecified cirrhosis of liver (2) Hepatic encephalopathy: Status: Acute Code(s): K76.82 - Hepatic encephalopathy (3) UTI (urinary tract infection): Status: Acute Code(s): N39.0 - Urinary tract infection, site not specified Plan Patient is a 62-year-old gentleman with history of cirrhosis of the liver who presented to the emergency department with altered mental status and assessment of acute hepatic encephalopathy made admitted to regular nursing floor for further management 1. Acute hepatic encephalopathy ? In a patient with liver cirrhosis admitted to regular nursing floor. Patient ordered lactulose via enema. Plan is to place an order for NG tube for lactulose to be administered through the NG -05/26/2023. Patient seen much more awake and interactive this a.m. CT of the brain obtained the day prior did show Mild left posterior scalp swelling/hematoma. Otherwise normal unenhanced CT scan of the brain. MRI subsequently ordered for further eval given patient's significant encephalopathy 2. Acute cystitis ? Complicating patient care patient started on ceftriaxone cultures sent 3. Ascites ? Secondary to patient underlying cirrhosis of the liver patient undergoes scheduled ultrasound-guided paracentesis every 2 weekly 4. History of HIV -On Biktarvy 1 tablet daily?05/26/2023 Case was discussed with pharmacy patient HIV medication apparently contraindicated in the presence of acute hepatic injury. Biktarvy held. Plan is to hold on discharge till patient is followed by his HIV specialist Dr. Rothman at [facility] in [place] 5. Lactic acidosis ? Attributed to patient cirrhosis of the liver 6. Acute kidney injury ? Baseline creatinine 0.88 creatinine on admission was 1.34 patient be rehydrated gently given his cirrhosis. Subsequent monitoring with daily BMPs ordered 7. COVID 19 diagnosis ? Patient completed a 10-day course with dexamethasone 8. Acute transaminitis ? Secondary to patient underlying cirrhosis of the liver 9. Anemia - Secondary to chronic disorder monitoring H&H and transfuse if patient becomes symptomatic or hemoglobin falls below 7 10. DVT prophylaxis ? Bilateral SCDs Time spent in the patient's overall evaluation,decision-making process, review of diagnostic data, adjustment of management, discussion with other providers, nursing nursing and ancillary staff involved in patient's care documentation, 50 Minutes Medications at Discharge Home Medications bictegravir 50 mg-emtricitabine 200 mg-tenofovir alafenam 25 mg tablet (Biktarvy) 1 tab PO DAILY 04/28/23 dexamethasone 6 mg tablet 6 mg PO DAILY 10 days #10 tabs 05/20/23 hydroxyzine HCl 10 mg tablet 10 mg PO QHS 05/20/23 oxycodone-acetaminophen 5 mg-325 mg tablet (Percocet) 1 tab PO Q6H PRN pain 5 days #20 tabs 05/20/23 cefdinir 300 mg capsule 300 mg PO BID #10 caps 05/26/23 lactulose 20 gram/30 mL oral solution 20 g (30 mL) NG DAILY 30 days #900 mL 05/26/23 Hospital Course Summary of Care Provided Minutes Spent on Discharge: 50 Physical Exam Narrative GENERAL: Awake and interactive HEENT: Atraumatic; normocephalic EYES; Anicteric, icteric NECK; supple, normal thyroid, RESPIRATORY: Diminished to auscultation CARDIOVASCULAR: Regular S1 S2, GI: soft, normoactive bowel sounds, slight distention of the abdomen : No Renal angle tenderness; EXTREMITIES: No edema, no clubbing, MUSCULOSKELETAL: no muscle wasting NEURO: Awake, no lateralizing signs SKIN: No Rash PSYCH; flat affect Weight / BMI Weight Weight: 74.843 kg Body Mass Index (BMI) 26.6 ABG / Lab / Microbiology Data 05/26/23 06:40 05/26/23 06:40 Laboratory: Laboratory Results - last 24 hr 05/24/23 19:25: Diff Path Review Reviewed 05/25/23 13:50: Fluid Source PERITONEAL FLUID, Fluid Color YELLOW, Fluid Appearance CLEAR, Fluid WBC 0.106, Fluid RBC 64, Fluid Tot Cell Count 0.117, Fld Polynuclear WBCs # 0.048, Fld Polynuclear WBCs % 45.3, Fluid Mononuclear WBCs 0.058, Fld Mononuclear WBCs % 54.7, Fluid Neutrophils 43, Fluid Lymphocytes 17, Fluid Monocytes 15, Fluid Macrophages 7, Fld Mesothelial Cells 18, Fl Pathologist Comment Reviewed, Fluid Glucose 163 H, Fluid Total Protein 0.3, Fluid LDH 41, Fluid Comment 2 SEE COMMENT 05/25/23 14:43: Ammonia 13.0 05/26/23 06:40: WBC 8.5, RBC 2.68 L, Hgb 8.9 L, Hct 26.4 L, MCV 98.5 H, MCH 33.2 H, MCHC 33.7, RDW Std Deviation 64.9 H, RDW Coeff of Eloise 18.5 H, Plt Count 127 L , MPV 10.7, Immature Gran % (Auto) 3.900 H, Neut % (Auto) 73.2 H, Lymph % (Auto) 10.2 L, [place] % (Auto) 12.3 H, Eos % (Auto) 0.0, Baso % (Auto) 0.4, Absolute Neuts (auto) 6.2, Absolute Lymphs (auto) 0.86, Nucleated RBC % 0.2, Sodium 142, Potassium 4.2, Chloride 112 H, Carbon Dioxide 23.0, Anion Gap 7, BUN 40 H, Creatinine 1.09, Estim Creat Clear Calc 62.60, Est GFR (MDRD) Af Amer 88, Est GFR (MDRD) Non-Af 73, BUN/Creatinine Ratio 36.7 H, Glucose 134 H, Calcium 7.5 L, Phosphorus 2.9, Magnesium 2.3, Total Bilirubin 8.20 H, Direct Bilirubin 5.87 H, AST 173 H, ALT 116 H, Alkaline Phosphatase 313 H, Ammonia < 10.0 L, Total Protein 5.8 L, Albumin 1.1 L, Globulin 4.7 H Microbiology: Microbiology 05/24/23 20:00 Urine Catheter - Freed Urine Culture - Final Presumptive E. coli Radiography Diagnostic Testing: Radiology Impression Brain MRI 05/26/23 09:30 IMPRESSION: 1. No MRI evidence of acute or subacute ischemic infarct or any abnormal enhancing lesions intra-axially and extra-axially. 2. Few chronic white matter ischemic changes in both cerebral hemispheres. Electronically Signed: Chris Dejesus MD at 10:45 EST , D/C Instructions Discharge Diet: No restrictions Discharge Activity: Return to Normal Activity Call your doctor if you observe: Fever of 101 or Higher, Shortness of breath, Fainting spells and Chest pain Meaningful Use Info Meaningful Use Diagnoses (Choose all that apply): None applicable Discharge Plan Admission Admit Date/Time: 05/24/23 22:02 Attending Provider: Skinny Daly Primary Care Provider: Layton Bailey NP Consulting Providers: Adriana Phipps Discharge Orders/Prescriptions Prescriptions: New lactulose 20 gram/30 mL Solution 20 g NG DAILY 30 Days Qty: 900 0RF cefdinir 300 mg capsule 300 mg PO BID Qty: 10 0RF Continued hydroxyzine HCl 10 mg tablet 10 mg PO QHS Patient Comments: TAKE ONE TABLET BY MOUTH AT BEDTIME NEEDED FOR SLEEP dexamethasone 6 mg tablet 6 mg PO DAILY 10 Days Qty: 10 0RF oxycodone-acetaminophen [Percocet] 5-325 mg tablet 1 tab PO Q6H PRN (Reason: pain) 5 Days Qty: 20 0RF Held Biktarvy 50-200-25 mg tablet 1 tab PO DAILY Hold Instructions: Resume on 06/14/23. To hold medications till he is seen and evaluated by his HIV infectious disease specialist about medication safety in view of his underlying chronic liver disease Referrals / Follow Up: Layton Bailey [facility], [facility] [Primary Care Provider] - Layton Bailey V[facility], [facility] [[facility]] - Disposition Disposition (needs filled in before D/C Order can be placed): Home, Self Care Charges/Coding Visit Charges Inpatient E&M: 43318 Disch Hosp >30min
[2023-05-26 14:28] VITALS: BP 133/80; PULSE 121; RESP 16; TEMP 36.1; O2SAT 96
[2023-05-26 20:12] VITALS: BP 119/78; PULSE 116; RESP 18; TEMP 36.1; O2SAT 100
--- NOTE | 2023-05-26 22:14 | NURSING ---
Pt set bed alarm off. Restless. Anxious. Wants to go home. Reoriented to place and time. Pt had pulled on suggs and diconnected the bag. Suggs dc'ed. Bath given. Attends changed. Pulled up in bed. Bed linens changed. Bed alarm reapplied. Pt on camera.
[2023-05-26] MEDS: hydrOXYzine 10 MG Tablet GT (22:23)
[2023-05-26] MEDS: Ceftriaxone 1 GM/50 ML BAG IV (22:23)
[2023-05-27] VITALS (7 sets, daily range): BP systolic 123–138; BP diastolic 78–95; PULSE 107–116; RESP 16–20; TEMP 36.2–36.8; O2SAT 96–100
--- NOTE | 2023-05-27 07:44 | PCM.PN.HOSP ---
Reason for Visit Reason for Visit: Diagnoses Alcoholic cirrhosis of liver with ascites (05/24/23) Unspecified cirrhosis of liver (05/24/23) Hepatic encephalopathy (05/24/23) Urinary tract infection, site not specified (05/24/23) Subjective Subjective Since seen back to baseline patient will be assessed for possible discharge Objective Data Objective Data Vital Signs: Vital Signs Temp Pulse Resp BP Pulse Ox O2 Del Method 97.1 F L 107 H 16 123/78 H 98 Room Air 05/27/23 02:37 05/27/23 02:37 05/27/23 02:37 05/27/23 02:37 05/27/23 02:37 05/27/23 02:37 Oxygen Delivery Method Room Air Weight: 74.843 kg Body Mass Index (BMI) 26.6 Intake & Output: Intake and Output for Last 24 Hours 05/25/23 05/26/23 05/27/23 23:59 23:59 23:59 Intake Total 150 / 150 450 / 1050 600 / 600 Output Total 5550 / 5850 950 / 1150 200 / 200 Balance -5400 / -5700 -500 / -100 400 / 400 Lab / Micro Data 05/27/23 07:43 05/26/23 06:40 Labs: Laboratory Results - last 24 hr 05/25/23 13:50: Fl Pathologist Comment Reviewed Micro: Microbiology 05/24/23 20:00 Urine Catheter - Freed Urine Culture - Final Presumptive E. coli Radiography Diagnostic Testing: Radiology Impression Brain MRI 05/26/23 09:30 IMPRESSION: 1. No MRI evidence of acute or subacute ischemic infarct or any abnormal enhancing lesions intra-axially and extra-axially. 2. Few chronic white matter ischemic changes in both cerebral hemispheres. Electronically Signed: Chris Dejesus MD at 10:45 EST , Physical Exam Narrative GENERAL: Awake and interactive HEENT: Atraumatic; normocephalic EYES; Anicteric, icteric NECK; supple, normal thyroid, RESPIRATORY: Diminished to auscultation CARDIOVASCULAR: Regular S1 S2, GI: soft, normoactive bowel sounds, slight distention of the abdomen : No Renal angle tenderness; EXTREMITIES: No edema, no clubbing, MUSCULOSKELETAL: no muscle wasting NEURO: Awake, no lateralizing signs SKIN: No Rash PSYCH; flat affect Assessment & Plan Assessment/Plan (1) Cirrhosis: (2) Hepatic encephalopathy: (3) UTI (urinary tract infection): PLAN: Plan Patient is a 62-year-old gentleman with history of cirrhosis of the liver who presented to the emergency department with altered mental status and assessment of acute hepatic encephalopathy made admitted to regular nursing floor for further management 1. Acute hepatic encephalopathy ? In a patient with liver cirrhosis admitted to regular nursing floor. Patient ordered lactulose via enema. Plan is to place an order for NG tube for lactulose to be administered through the NG -05/26/2023. Patient seen much more awake and interactive this a.m. CT of the brain obtained the day prior did show Mild left posterior scalp swelling/hematoma. Otherwise normal unenhanced CT scan of the brain. MRI subsequently ordered for further eval given patient's significant encephalopathy 2. Acute cystitis ? Complicating patient care patient started on ceftriaxone cultures sent 3. Ascites ? Secondary to patient underlying cirrhosis of the liver patient undergoes scheduled ultrasound-guided paracentesis every 2 weekly 4. History of HIV -On Biktarvy 1 tablet daily?05/26/2023 Case was discussed with pharmacy patient HIV medication apparently contraindicated in the presence of acute hepatic injury. Biktarvy held. Plan is to hold on discharge till patient is followed by his HIV specialist Dr. Rothman at [facility] in [place] 5. Lactic acidosis ? Attributed to patient cirrhosis of the liver 6. Acute kidney injury ? Baseline creatinine 0.88 creatinine on admission was 1.34 patient be rehydrated gently given his cirrhosis. Subsequent monitoring with daily BMPs ordered 7. COVID 19 diagnosis ? Patient completed a 10-day course with dexamethasone 8. Acute transaminitis ? Secondary to patient underlying cirrhosis of the liver 9. Anemia - Secondary to chronic disorder monitoring H&H and transfuse if patient becomes symptomatic or hemoglobin falls below 7 10. DVT prophylaxis ? Bilateral SCDs Time spent in the patient's overall evaluation,decision-making process, review of diagnostic data, adjustment of management, discussion with other providers, nursing nursing and ancillary staff involved in patient's care documentation, 35 Minutes Charges/Coding Visit Charges Inpatient E&M: 94951 Subs Hosp L2
[2023-05-27 07:52] LABS: Absolute Lymphocyte Count 1.01 X10^3/uL (0.83-4.51); Absolute Neutrophil Count 6.7 X10^3/uL (2.0-7.7); Basophil# 0.01 X10^3/uL; Basophil% 0.1 % (0-1); Hematocrit 25.8 % (40-54); Hemoglobin 8.7 g/dL (13.0-16.5); Lymphocyte # 1.01 X10^3/ul (0.83-4.51); Lymphocyte % 11.3 % (19-41); Mean Corp Hgb Conc 33.7 g/dL (32-36); Mean Corpuscular Hgb 34.1 pg (27.0-32.0); Mean Corpuscular Volume 101.2 fL (80-94); Mean Platelet Vol. 10.3 fl (6.2-12.0); NRBC Flagged by Analyzer 0.2 % (0-5); Neutrophil # 6.72 X10^3/uL (2.7-7.7); POSITIVE MORPHOLOGY YES; Platelet Count 125 K/mm3 (150-450); RBC Distribution Width CV 18.6 % (11.6-14.6); RBC Distribution Width SD 68.2 fl (35.1-43.9); Red Blood Count 2.55 M/mm3 (4.6-6.2)
[2023-05-27 07:56] LABS: Differential Indicated SCAN CRITERIA MET
[2023-05-27 08:33] LABS: Anisocytosis 2+
[2023-05-27 09:01] LABS: Anion Gap 11 (5-15); BUN 42 mg/dL (7-18); BUN/Creat Ratio 35.3 RATIO (10-20); Calcium,Total 7.5 mg/dL (8.5-10.1); Chloride 104 mmol/L (98-107); Creatinine, Serum 1.19 mg/dL (0.70-1.30); EST Glomerular Filtration Rate 66 mL/min (>60); Est Glom Filt Rate - Afr Amer 79 mL/min (>60); Estimated Creatinine Clearance 57.34 ml/min; Glucose 174 mg/dL (74-106); Potassium 3.7 mmol/L (3.5-5.1); Sodium Level 134 mmol/L (136-145)
[2023-05-27] MEDS: Lactulose 20 GM/30 ML UDC NG ×2 (09:17→21:20)
[2023-05-27] MEDS: dexAMETHasone 4 MG Tablet 6 MG PO (09:17)
--- NOTE | 2023-05-27 11:46 | CASEMGMT ---
RN CM NOTE: Noted discharge order is in. Per RN, Jamar, pt is still confused and states he almost fell this morning. Per Billie, therapist, she has worked w/pt this morning and states he is not safe to discharge home, stating he is still very confused. Dr Daly made aware. Bee BUSBYN RN CM
--- NOTE | 2023-05-27 14:30 | NURSING ---
Patient continues to refuse vp clinical this shift
[2023-05-27] MEDS: hydrOXYzine 10 MG Tablet GT (21:20)
[2023-05-27] MEDS: Ceftriaxone 1 GM/50 ML BAG IV (21:20)
[2023-05-28 02:00] VITALS: BP 138/90; PULSE 120; RESP 16; TEMP 31.8; O2SAT 100
[2023-05-28 04:31] LABS: Absolute Lymphocyte Count 0.78 X10^3/uL (0.83-4.51); Absolute Neutrophil Count 7.2 X10^3/uL (2.0-7.7); Basophil# 0.02 X10^3/uL; Basophil% 0.2 % (0-1); Hematocrit 25.8 % (40-54); Hemoglobin 8.7 g/dL (13.0-16.5); Lymphocyte # 0.78 X10^3/ul (0.83-4.51); Lymphocyte % 8.6 % (19-41); Mean Corp Hgb Conc 33.7 g/dL (32-36); Mean Corpuscular Hgb 33.5 pg (27.0-32.0); Mean Corpuscular Volume 99.2 fL (80-94); Mean Platelet Vol. 10.1 fl (6.2-12.0); Monocyte# 0.82 X10^3/uL; Monocyte% 9.1 % (0-10); NRBC Flagged by Analyzer 0.2 % (0-5); Neutrophil # 7.18 X10^3/uL (2.7-7.7); Neutrophil % 79.3 % (47-70); Platelet Count 126 K/mm3 (150-450); RBC Distribution Width CV 17.9 % (11.6-14.6); RBC Distribution Width SD 63.8 fl (35.1-43.9); White Blood Count 9.1 K/mm3 (4.4-11.0)
[2023-05-28 04:46] LABS: Anion Gap 9 (5-15); BUN 41 mg/dL (7-18); BUN/Creat Ratio 41.4 RATIO (10-20); Calcium,Total 7.5 mg/dL (8.5-10.1); Chloride 101 mmol/L (98-107); Creatinine, Serum 0.99 mg/dL (0.70-1.30); EST Glomerular Filtration Rate 81 mL/min (>60); Est Glom Filt Rate - Afr Amer 98 mL/min (>60); Estimated Creatinine Clearance 68.92 ml/min; Glucose 181 mg/dL (74-106); Potassium 4.3 mmol/L (3.5-5.1); Sodium Level 131 mmol/L (136-145)
--- NOTE | 2023-05-28 07:25 | PCM.PN.HOSP ---
Reason for Visit Reason for Visit: Diagnoses Alcoholic cirrhosis of liver with ascites (05/24/23) Unspecified cirrhosis of liver (05/24/23) Hepatic encephalopathy (05/24/23) Urinary tract infection, site not specified (05/24/23) Subjective Subjective Patient seen much more interactive however remains significantly deconditioned. Attempt to discharge patient on 2 previous occasions unsuccessful due to episodic confusion and significant physical debility Objective Data Objective Data Vital Signs: Vital Signs Temp Pulse Resp BP Pulse Ox O2 Del Method 89.2 F L 120 H 16 138/90 H 100 Room Air 05/28/23 02:00 05/28/23 02:00 05/28/23 02:00 05/28/23 02:00 05/28/23 02:00 05/28/23 02:00 Oxygen Delivery Method Room Air Weight: 74.843 kg Body Mass Index (BMI) 26.6 Intake & Output: Intake and Output for Last 24 Hours 05/26/23 05/27/23 05/28/23 23:59 23:59 23:59 Intake Total 450 / 1050 1130 / 1130 Output Total 950 / 1150 200 / 200 300 / 300 Balance -500 / -100 930 / 930 -300 / -300 Lab / Micro Data 05/28/23 04:23 05/28/23 04:23 Labs: Laboratory Results - last 24 hr 05/27/23 07:43: WBC 9.0, RBC 2.55 L, Hgb 8.7 L, Hct 25.8 L, MCV 101.2 H, MCH 34.1 H, MCHC 33.7, RDW Std Deviation 68.2 H, RDW Coeff of Eloise 18.6 H, Plt Count 125 L, MPV 10.3, Immature Gran % (Auto) 3.600 H, Neut % (Auto) 75.0 H, Lymph % (Auto) 11.3 L, [place] % (Auto) 10.0, Eos % (Auto) 0.0, Baso % (Auto) 0.1, Absolute Neuts (auto) 6.7, Absolute Lymphs (auto) 1.01, Nucleated RBC % 0.2, Anisocytosis 2+, Sodium 134 L, Potassium 3.7, Chloride 104, Carbon Dioxide 19.0 L, Anion Gap 11, BUN 42 H, Creatinine 1.19, Estim Creat Clear Calc 57.34, Est GFR (MDRD) Af Amer 79, Est GFR (MDRD) Non-Af 66, BUN/Creatinine Ratio 35.3 H, Glucose 174 H, Calcium 7.5 L, Ammonia 15.0 05/28/23 04:23: WBC 9.1, RBC 2.60 L, Hgb 8.7 L, Hct 25.8 L, MCV 99.2 H, MCH 33.5 H, MCHC 33.7, RDW Std Deviation 63.8 H, RDW Coeff of Eloise 17.9 H, Plt Count 126 L, MPV 10.1, Immature Gran % (Auto) 2.800 H, Neut % (Auto) 79.3 H, Lymph % (Auto) 8.6 L, [place] % (Auto) 9.1, Eos % (Auto) 0.0, Baso % (Auto) 0.2, Absolute Neuts (auto) 7.2, Absolute Lymphs (auto) 0.78 L, Nucleated RBC % 0.2, Sodium 131 L, Potassium 4.3, Chloride 101, Carbon Dioxide 21.0, Anion Gap 9, BUN 41 H, Creatinine 0.99, Estim Creat Clear Calc 68.92, Est GFR (MDRD) Af Amer 98, Est GFR (MDRD) Non-Af 81, BUN/Creatinine Ratio 41.4 H, Glucose 181 H, Calcium 7.5 L, Ammonia 29.0 Micro: Microbiology 05/24/23 20:20 Blood Culture (Wb) - Left Forearm Blood Culture - Preliminary No growth in 48 hours. 05/24/23 19:25 Blood Culture (Wb) - Anticubital Left Blood Culture - Preliminary No growth in 48 hours. 05/24/23 20:00 Urine Catheter - Freed Urine Culture - Final Presumptive E. coli Physical Exam Narrative GENERAL: Awake and interactive HEENT: Atraumatic; normocephalic EYES; Anicteric, icteric NECK; supple, normal thyroid, RESPIRATORY: Diminished to auscultation CARDIOVASCULAR: Regular S1 S2, GI: soft, normoactive bowel sounds, slight distention of the abdomen : No Renal angle tenderness; EXTREMITIES: No edema, no clubbing, MUSCULOSKELETAL: no muscle wasting NEURO: Awake, no lateralizing signs SKIN: No Rash PSYCH; flat affect Assessment & Plan Assessment/Plan (1) Cirrhosis: (2) Hepatic encephalopathy: (3) UTI (urinary tract infection): PLAN: Plan Patient is a 62-year-old gentleman with history of cirrhosis of the liver who presented to the emergency department with altered mental status and assessment of acute hepatic encephalopathy made admitted to regular nursing floor for further management 1. Acute hepatic encephalopathy ? In a patient with liver cirrhosis admitted to regular nursing floor. Patient ordered lactulose via enema. Plan is to place an order for NG tube for lactulose to be administered through the NG -05/26/2023. Patient seen much more awake and interactive this a.m. CT of the brain obtained the day prior did show Mild left posterior scalp swelling/hematoma. Otherwise normal unenhanced CT scan of the brain. MRI subsequently ordered for further eval given patient's significant encephalopathy ? 05/28/2023 clinical condition continues to improve however patient continues to develop episodic delirium. 2. Acute cystitis ? Complicating patient care patient started on ceftriaxone cultures sent ? Urine cultures positive for pansensitive E. coli patient is on ceftriaxone 3. Ascites ? Secondary to patient underlying cirrhosis of the liver patient undergoes scheduled ultrasound-guided paracentesis every 2 weekly 4. History of HIV -On Biktarvy 1 tablet daily?05/26/2023 Case was discussed with pharmacy patient HIV medication apparently contraindicated in the presence of acute hepatic injury. Biktarvy held. Plan is to hold on discharge till patient is followed by his HIV specialist Dr. Rothman at [facility] in [place] 5. Lactic acidosis ? Attributed to patient cirrhosis of the liver 6. Acute kidney injury ? Baseline creatinine 0.88 creatinine on admission was 1.34 patient be rehydrated gently given his cirrhosis. Subsequent monitoring with daily BMPs ordered 7. COVID 19 diagnosis ? Patient completed a 10-day course with dexamethasone 8. Acute transaminitis ? Secondary to patient underlying cirrhosis of the liver 9. Anemia - Secondary to chronic disorder monitoring H&H and transfuse if patient becomes symptomatic or hemoglobin falls below 7 10. DVT prophylaxis ? Bilateral SCDs Time spent in the patient's overall evaluation,decision-making process, review of diagnostic data, adjustment of management, discussion with other providers, nursing nursing and ancillary staff involved in patient's care documentation, 35 minutes Charges/Coding Visit Charges Inpatient E&M: 28789 Subs Hosp L2
[2023-05-28] MEDS: Lactulose 20 GM/30 ML UDC NG ×2 (07:59→21:36)
[2023-05-28] MEDS: dexAMETHasone 4 MG Tablet 6 MG PO (07:59)
[2023-05-28 08:46] VITALS: BP 137/84; PULSE 105; RESP 16; TEMP 36; O2SAT 97
[2023-05-28 14:00] VITALS: BP 154/87; PULSE 112; RESP 18; TEMP 36; O2SAT 99
[2023-05-28 20:00] VITALS: BP 125/97; PULSE 114; RESP 16; TEMP 36.1; O2SAT 97
--- NOTE | 2023-05-28 21:15 | NURSING ---
Sister, Sandhya, Called in for update. Discussed concerns for pt coming home alone. Pt has dog she is caring for at home. Sandhya plans to call in tomorrow and talk with CM about dc planning.
--- NOTE | 2023-05-28 21:17 | NURSING ---
Pt sister, Nadya, called in for update on dc planning. She shared concerns for pt going home alone. She has found pt outside after a fall 2 times. I encouraged Nadya to call in tomorrow morning and talk with CM about dc planning.
[2023-05-28] MEDS: Ceftriaxone 1 GM/50 ML BAG IV (21:36)
[2023-05-28] MEDS: hydrOXYzine 10 MG Tablet GT (21:36)
[2023-05-29 02:04] VITALS: BP 138/88; PULSE 115; RESP 16; TEMP 36.2; O2SAT 97
[2023-05-29 02:05] VITALS: PULSE 115
[2023-05-29 05:26] LABS: Absolute Lymphocyte Count 0.62 X10^3/uL (0.83-4.51); Absolute Neutrophil Count 7.3 X10^3/uL (2.0-7.7); Basophil# 0.02 X10^3/uL; Basophil% 0.2 % (0-1); Hematocrit 25.6 % (40-54); Hemoglobin 8.6 g/dL (13.0-16.5); Lymphocyte # 0.62 X10^3/ul (0.83-4.51); Lymphocyte % 6.8 % (19-41); Mean Corp Hgb Conc 33.6 g/dL (32-36); Mean Corpuscular Hgb 33.5 pg (27.0-32.0); Mean Corpuscular Volume 99.6 fL (80-94); Mean Platelet Vol. 10.1 fl (6.2-12.0); Monocyte# 0.94 X10^3/uL; Monocyte% 10.3 % (0-10); NRBC Flagged by Analyzer 0 % (0-5); Neutrophil # 7.34 X10^3/uL (2.7-7.7); Neutrophil % 80.5 % (47-70); Platelet Count 106 K/mm3 (150-450); RBC Distribution Width CV 17.7 % (11.6-14.6); RBC Distribution Width SD 62.9 fl (35.1-43.9); Red Blood Count 2.57 M/mm3 (4.6-6.2); White Blood Count 9.1 K/mm3 (4.4-11.0)
[2023-05-29 05:49] LABS: ALB/GLOB Ratio 0.2 RATIO (0.9-2.4); AST(SGOT) 161 U/L (15-37); Alanine Aminotransfer ALT/SGPT 152 U/L (16-61); Albumin, Serum 1.2 g/dL (3.2-5.0); Alkaline Phosphatase 365 U/L (45-117); Anion Gap 8 (5-15); BUN 34 mg/dL (7-18); BUN/Creat Ratio 36.5 RATIO (10-20); Calcium,Total 7.5 mg/dL (8.5-10.1); Chloride 102 mmol/L (98-107); Creatinine, Serum 0.93 mg/dL (0.70-1.30); EST Glomerular Filtration Rate 87 mL/min (>60); Est Glom Filt Rate - Afr Amer 105 mL/min (>60); Estimated Creatinine Clearance 73.37 ml/min; Glucose 216 mg/dL (74-106); Magnesium 2.1 mg/dL (1.6-2.6); Phosphorus 2.6 mg/dL (2.5-4.9); Potassium 4.5 mmol/L (3.5-5.1); Protein, Total 6.2 g/dL (6.4-8.2); Sodium Level 132 mmol/L (136-145)
[2023-05-29 08:00] VITALS: BP 134/80; PULSE 99; RESP 15; TEMP 36.8; O2SAT 99
[2023-05-29] MEDS: dexAMETHasone 4 MG Tablet 6 MG PO (08:44)
[2023-05-29] MEDS: Lactulose 20 GM/30 ML UDC NG ×2 (08:44→20:33)
[2023-05-29 09:40] VITALS: O2SAT 99
--- NOTE | 2023-05-29 10:48 | PN.HOSP_ITS ---
Subjective Subjective Resting comfortably, no issues overnight Objective Data Objective Data Vital Signs: Vital Signs Temp Pulse Resp BP Pulse Ox O2 Del Method 98.2 F 99 15 134/80 H 99 Room Air 05/29/23 08:00 05/29/23 08:00 05/29/23 08:00 05/29/23 08:00 05/29/23 09:40 05/29/23 09:40 Oxygen Delivery Method Room Air Weight: 165 lb Body Mass Index (BMI) 26.6 Intake & Output: Intake and Output for Last 24 Hours 05/28/23 05/29/23 05/30/23 03:59 03:59 03:59 Intake Total 530 / 530 650 / 650 300 / 300 Output Total 225 / 225 375 / 375 Balance 305 / 305 275 / 275 300 / 300 Lab / Micro Data 05/29/23 05:06 05/29/23 05:06 Labs: Laboratory Results - last 24 hr 05/29/23 05:06: WBC 9.1, RBC 2.57 L, Hgb 8.6 L, Hct 25.6 L, MCV 99.6 H, MCH 33.5 H, MCHC 33.6, RDW Std Deviation 62.9 H, RDW Coeff of Eloise 17.7 H, Plt Count 106 L , MPV 10.1, Immature Gran % (Auto) 2.200 H, Neut % (Auto) 80.5 H, Lymph % (Auto) 6.8 L, [place] % (Auto) 10.3 H, Eos % (Auto) 0.0, Baso % (Auto) 0.2, Absolute Neuts (auto) 7.3, Absolute Lymphs (auto) 0.62 L, Nucleated RBC % 0, Sodium 132 L, Potassium 4.5, Chloride 102, Carbon Dioxide 22.0, Anion Gap 8, BUN 34 H, Creatinine 0.93, Estim Creat Clear Calc 73.37, Est GFR (MDRD) Af Amer 105, Est GFR (MDRD) Non-Af 87, BUN/Creatinine Ratio 36.5 H, Glucose 216 H, Calcium 7.5 L, Phosphorus 2.6, Magnesium 2.1, Total Bilirubin 6.00 H, AST 161 H, ALT 152 H, Alkaline Phosphatase 365 H, Total Protein 6.2 L, Albumin 1.2 L, Globulin 5.0 H, Albumin/Globulin Ratio 0.2 L Micro: Microbiology 05/24/23 20:20 Blood Culture (Wb) - Left Forearm Blood Culture - Preliminary No growth in 48 hours. 05/24/23 19:25 Blood Culture (Wb) - Anticubital Left Blood Culture - Preliminary No growth in 48 hours. 05/24/23 20:00 Urine Catheter - Freed Urine Culture - Final Presumptive E. coli Physical Exam Narrative General: Alert, Oriented, Cooperative, No apparent distress HEENT: Atraumatic, PERRLA, EOMI, Normocephalic Oral: Moist Mucosa Neck: Supple, No JVD Lungs: Diminished, Normal air movement, No rhonchi, No wheeze, No rales Cardiovascular: Regular rate, Regular Rhythm, Normal S1, Normal S2, No murmurs Abdomen: Soft, Non Tender, distended, No Hepato-splenomegaly Extremities: No edema, Capillary Refill Less than 3 Seconds Skin: No rashes, No breakdown Musculoskeletal: No Tenderness to Palpation of Joints or Extremities Neurological: Cranial nerves II-XII grossly intact, Motor Exam 5/5 strength throughout, Sensory exam intact to light touch and pain Psych/Mental Status: Flat Assessment & Plan Assessment/Plan (1) Cirrhosis: (2) Hepatic encephalopathy: (3) UTI (urinary tract infection): PLAN: Plan 1. Acute hepatic encephalopathy ? In a patient with liver cirrhosis admitted to regular nursing floor. Patient ordered lactulose via enema. Plan is to place an order for NG tube for lactulose to be administered through the NG -05/26/2023. Patient seen much more awake and interactive this a.m. CT of the brain obtained the day prior did show Mild left posterior scalp swelling/hematoma. Otherwise normal unenhanced CT scan of the brain. MRI subsequently ordered for further eval given patient's significant encephalopathy ? 05/28/2023 clinical condition continues to improve however patient continues to develop episodic delirium. 05/29/2023: Continue with physical therapy and Occupational Therapy may need to s earch for [facility] facility 2. Acute cystitis ? Complicating patient care patient started on ceftriaxone cultures sent ? Urine cultures positive for pansensitive E. coli patient is on ceftriaxone 05/29/2023: Continue with his Rocephin, is received 5 days so far 3. Ascites ? Secondary to patient underlying cirrhosis of the liver patient undergoes scheduled ultrasound-guided paracentesis every 2 weekly 05/29/2023: He had a paracentesis done on the with almost 5 L of fluid removed 4. History of HIV -On Biktarvy 1 tablet daily?05/26/2023 Case was discussed with pharmacy patient HIV medication apparently contraindicated in the presence of acute hepatic injury. Biktarvy held. Plan is to hold on discharge till patient is followed by his HIV specialist Dr. Rothman at [facility] in [place] 5. Lactic acidosis ? Attributed to patient cirrhosis of the liver 6. Acute kidney injury ? Baseline creatinine 0.88 creatinine on admission was 1.34 patient be rehydrated gently given his cirrhosis. Subsequent monitoring with daily BMPs ordered 7. COVID 19 diagnosis ? Patient completed a 10-day course with dexamethasone 8. Acute transaminitis ? Secondary to patient underlying cirrhosis of the liver 9. Anemia - Secondary to chronic disorder monitoring H&H and transfuse if patient becomes symptomatic or hemoglobin falls below 7 DVT: SCDs Charges/Coding Visit Charges Inpatient E&M: 90427 Subs Hosp L2
--- NOTE | 2023-05-29 11:40 | NURSING ---
Radiology staff came and talked with patient and felt like he was at his baseline based on his weekly visits to radiology.
[2023-05-29 14:00] VITALS: BP 135/92; PULSE 111; RESP 16; TEMP 36.6; O2SAT 99
--- NOTE | 2023-05-29 15:00 | CASEMGMT ---
MAREK DIMAS NOTE: Therapy was just in to work w/pt. MAREK DIMAS spoke w/them and they state they think pt would benefit from a SNF, but also state he may do okay at home and recommending he use a walker. MAREK DIMAS to room. Pt sitting on edge of bed. Introduced self and role. Discussed discharge planning, including SNF, HHC, and OP therapy. Pt states he does not want to go to a SNF, stating he really wants to go home. He also declines wanting HHC or OP therapy. He is aware therapy recommending use of walker for safety and he verifies he does have one at home he can use. He states, If I get out and get fresh air, I'll feel better and will get stronger quicker . He was made aware if he changes his mind about HHC or OP therapy once he returns home, to discuss this with his PCP. He voices understanding. He declines having any further discharge needs. Pt states he is interested in completing HCPOA if SW available, stating he would want his sister, Nadya, to be HCPOA. SW, Adriana, made aware. Pt made aware if SW unavailable to complete this while he is in the hospital that this can be completed as an OP. He voices understanding. Bee MCKEON RN, CM
[2023-05-29 20:26] VITALS: BP 122/88; PULSE 103; RESP 20; TEMP 36.3; O2SAT 100
[2023-05-29] MEDS: Ondansetron 4 MG/2 ML Vial IV (20:33)
[2023-05-29] MEDS: 0.9% Saline Lock 10 ML Syringe IV (20:33)
[2023-05-29] MEDS: Ceftriaxone 1 GM/50 ML BAG IV (20:33)
[2023-05-29] MEDS: hydrOXYzine 10 MG Tablet GT (20:33)
[2023-05-30 02:59] VITALS: BP 153/89; PULSE 114; RESP 18; TEMP 36.4; O2SAT 100
[2023-05-30] MEDS: Mag Hydrox/Al Hydrox/Simeth 30 ML UDC PO (03:39)
[2023-05-30 07:25] LABS: Absolute Neutrophil Count 10.9 X10^3/uL (2.0-7.7); Basophil# 0.02 X10^3/uL; Basophil% 0.1 % (0-1); Hematocrit 23.8 % (40-54); Lymphocyte % 6.6 % (19-41); Mean Corp Hgb Conc 33.6 g/dL (32-36); Mean Corpuscular Hgb 33.6 pg (27.0-32.0); Mean Platelet Vol. 10.7 fl (6.2-12.0); Monocyte# 1.44 X10^3/uL; Monocyte% 10.6 % (0-10); NRBC Flagged by Analyzer 0 % (0-5); Neutrophil # 10.94 X10^3/uL (2.7-7.7); Neutrophil % 80.4 % (47-70); Platelet Count 121 K/mm3 (150-450); RBC Distribution Width CV 18.4 % (11.6-14.6); RBC Distribution Width SD 62.5 fl (35.1-43.9); Red Blood Count 2.38 M/mm3 (4.6-6.2); White Blood Count 13.6 K/mm3 (4.4-11.0)
[2023-05-30 08:01] LABS: ALB/GLOB Ratio 0.3 RATIO (0.9-2.4); AST(SGOT) 143 U/L (15-37); Alanine Aminotransfer ALT/SGPT 153 U/L (16-61); Albumin, Serum 1.2 g/dL (3.2-5.0); Alkaline Phosphatase 352 U/L (45-117); Anion Gap 6 (5-15); BUN 35 mg/dL (7-18); BUN/Creat Ratio 39.7 RATIO (10-20); Calcium,Total 7.9 mg/dL (8.5-10.1); Chloride 103 mmol/L (98-107); Creatinine, Serum 0.88 mg/dL (0.70-1.30); EST Glomerular Filtration Rate 93 mL/min (>60); Est Glom Filt Rate - Afr Amer 112 mL/min (>60); Estimated Creatinine Clearance 77.53 ml/min; Globulin 4.7 g/dL (2.2-4.2); Glucose 226 mg/dL (74-106); Potassium 4.7 mmol/L (3.5-5.1); Protein, Total 5.9 g/dL (6.4-8.2); Sodium Level 132 mmol/L (136-145)
[2023-05-30] MEDS: dexAMETHasone 4 MG Tablet 6 MG PO (08:24)
[2023-05-30] MEDS: Lactulose 20 GM/30 ML UDC NG ×2 (08:24→21:42)
[2023-05-30 08:49] VITALS: BP 132/92; PULSE 114; RESP 18; TEMP 36.3; O2SAT 100
--- NOTE | 2023-05-30 10:12 | PCM.PN.HOSP ---
Subjective Subjective No issues overnight, he is still confused and, he cannot express to me the risks of going home and the benefits of going to a fci he just states that he wants to go home. Objective Data Objective Data Vital Signs: Vital Signs Temp Pulse Resp BP Pulse Ox O2 Del Method 97.4 F L 114 H 18 132/92 H 100 Room Air 05/30/23 08:49 05/30/23 08:49 05/30/23 08:49 05/30/23 08:49 05/30/23 08:49 05/30/23 08:51 Oxygen Delivery Method Room Air Weight: 165 lb Body Mass Index (BMI) 26.6 Intake & Output: Intake and Output for Last 24 Hours 05/29/23 05/30/23 05/31/23 03:59 03:59 03:59 Intake Total 650 / 650 990 / 990 Output Total 375 / 375 200 / 200 Balance 275 / 275 790 / 790 Lab / Micro Data 05/30/23 06:46 05/30/23 06:46 Labs: Laboratory Results - last 24 hr 05/30/23 06:46: WBC 13.6 H, RBC 2.38 L, Hgb 8.0 L, Hct 23.8 L, MCV 100.0 H, MCH 33.6 H, MCHC 33.6, RDW Std Deviation 62.5 H, RDW Coeff of Eloise 18.4 H, Plt Count 121 L, MPV 10.7, Immature Gran % (Auto) 2.300 H, Neut % (Auto) 80.4 H, Lymph % (Auto) 6.6 L, [place] % (Auto) 10.6 H, Eos % (Auto) 0.0, Baso % (Auto) 0.1, Absolute Neuts (auto) 10.9 H, Absolute Lymphs (auto) 0.90, Nucleated RBC % 0, Sodium 132 L, Potassium 4.7, Chloride 103, Carbon Dioxide 23.0, Anion Gap 6, BUN 35 H, Creatinine 0.88, Estim Creat Clear Calc 77.53, Est GFR (MDRD) Af Amer 112, Est GFR (MDRD) Non-Af 93, BUN/Creatinine Ratio 39.7 H, Glucose 226 H, Calcium 7.9 L, Total Bilirubin 5.80 H, AST 143 H, ALT 153 H, Alkaline Phosphatase 352 H, Total Protein 5.9 L, Albumin 1.2 L, Globulin 4.7 H, Albumin/Globulin Ratio 0.3 L Micro: Microbiology 05/24/23 20:20 Blood Culture (Wb) - Left Forearm Blood Culture - Final No growth in 5 days. 05/24/23 19:25 Blood Culture (Wb) - Anticubital Left Blood Culture - Final No growth in 5 days. 05/24/23 20:00 Urine Catheter - Freed Urine Culture - Final Presumptive E. coli Physical Exam Narrative General: Alert, Oriented, Cooperative, No apparent distress HEENT: Atraumatic, PERRLA, EOMI, Normocephalic Oral: Moist Mucosa Neck: Supple, No JVD Lungs: Diminished, Normal air movement, No rhonchi, No wheeze, No rales Cardiovascular: Regular rate, Regular Rhythm, Normal S1, Normal S2, No murmurs Abdomen: Soft, Non Tender, distended, No Hepato-splenomegaly Extremities: edema, Capillary Refill Less than 3 Seconds Skin: No rashes, No breakdown Musculoskeletal: No Tenderness to Palpation of Joints or Extremities Neurological: Cranial nerves II-XII grossly intact, Motor Exam 5/5 strength throughout, Sensory exam intact to light touch and pain Psych/Mental Status: Flat Assessment & Plan Assessment/Plan (1) Cirrhosis: (2) Hepatic encephalopathy: (3) UTI (urinary tract infection): PLAN: Plan 1. Acute hepatic encephalopathy ? In a patient with liver cirrhosis admitted to regular nursing floor. Patient ordered lactulose via enema. Plan is to place an order for NG tube for lactulose to be administered through the NG -05/26/2023. Patient seen much more awake and interactive this a.m. CT of the brain obtained the day prior did show Mild left posterior scalp swelling/hematoma. Otherwise normal unenhanced CT scan of the brain. MRI subsequently ordered for further eval given patient's significant encephalopathy ? 05/28/2023 clinical condition continues to improve however patient continues to develop episodic delirium. 05/29/2023: Continue with physical therapy and Occupational Therapy may need to search for nursing home facility 05/30/2023: Will reach out to family as he does have difficulty understanding the risk and benefits of his decision making 2. Acute cystitis ? Complicating patient care patient started on ceftriaxone cultures sent ? Urine cultures positive for pansensitive E. coli patient is on ceftriaxone 05/29/2023: Continue with his Rocephin, is received 5 days so far 05/30/2023: Does have a slight increase in his white blood cell count of 13.6 unclear if this is infectious as his UTI is treated with Rocephin as blood cultures have been negative. Could be related to with Decadron, will recheck in the morning 3. Ascites ? Secondary to patient underlying cirrhosis of the liver patient undergoes scheduled ultrasound-guided paracentesis every 2 weekly 05/29/2023: He had a paracentesis done on the with almost 5 L of fluid removed 4. History of HIV -On Biktarvy 1 tablet daily?05/26/2023 Case was discussed with pharmacy patient HIV medication apparently contraindicated in the presence of acute hepatic injury. Biktarvy held. Plan is to hold on discharge till patient is followed by his HIV specialist Dr. Rothman at [facility] in [place] 5. Lactic acidosis ? Attributed to patient cirrhosis of the liver 6. Acute kidney injury ? Baseline creatinine 0.88 creatinine on admission was 1.34 patient be rehydrated gently given his cirrhosis. Subsequent monitoring with daily BMPs ordered 7. COVID 19 diagnosis ? Patient completed a 10-day course with dexamethasone 8. Acute transaminitis ? Secondary to patient underlying cirrhosis of the liver 9. Anemia - Secondary to chronic disorder monitoring H&H and transfuse if patient becomes symptomatic or hemoglobin falls below 7 DVT: SCDs Capacity Legal Supervisor [place] Reflex Medical hold order details:: IF a medical hold is selected below, a suggested order for a MEDICAL HOLD will reflex upon signing the document. Next of kin: [place] law dictates a PRIORITY LIST for identifying legal decision-maker/legal next of kin in the following order (LNOK): 1st: The patient?s legal guardian, if any 2nd: The patient's spouse (if status is questionable, consult Risk Management) 3rd: The patient?s adult child(millicent) (majority, if multiple children) 4th: The patient?s parents 5th: The patient?s adult siblings (majority, if multiple children siblings) Charges/Coding Visit Charges Inpatient E&M: 08722 Subs Hosp L2
--- NOTE | 2023-05-30 10:36 | CASEMGMT ---
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 JHON Meyers Original Note: Social Work SW met w/pt, to see if pt able to complete LW/POA today. SW inquired w/pt where he is. Pt aware in hospital however states he is on [address]. SW asked where he lives, pt states on [address] SW completed the BIMS assessment w/pt, pt scored a 9. Pt knows is 2023, states is June and . Pt able to recall one word out of the three (sock, blue, bed), even with cuing. SW inquired about POA, he confirms wants his sister to be POA. SW asked if he has any children, he states he has one son but has not seen him for 2.5 years. SW explained would like to complete POA papers w/him however would like to wait until pt is a bit more clear mentally. Pt states understanding. SW will continue to follow, will assist pt with POA papers when appropriate. JHON Meyers
[2023-05-30 17:14] VITALS: BP 142/72; PULSE 114; RESP 17; TEMP 36.3; O2SAT 99
--- NOTE | 2023-05-30 19:52 | PCM.HOSP.N ---
Hospitalist Note Called by the second floor smelter charger and informed that the patient was threatening to leave AGAINST MEDICAL ADVICE. I went to evaluate the patient and explained to him because of the bitter cold and his persisting confusion from his hepatic encephalopathy with cirrhosis due to previous alcohol abuse that he was not safe to leave. Therefore, he has been pink slipped. As further spoke with his nurse and she informed me that his sister informed her that she would likely be able to take him home tomorrow, which hopefully will be done.
[2023-05-30 21:26] VITALS: BP 145/85; PULSE 100; RESP 16; TEMP 36.8; O2SAT 100
[2023-05-30] MEDS: Ceftriaxone 1 GM/50 ML BAG IV (21:42)
[2023-05-30] MEDS: hydrOXYzine 10 MG Tablet GT (21:42)
[2023-05-31 04:13] VITALS: BP 142/92; PULSE 85; RESP 16; TEMP 36.9; O2SAT 100
[2023-05-31 06:42] LABS: Absolute Lymphocyte Count 0.93 X10^3/uL (0.83-4.51); Basophil# 0.03 X10^3/uL; Basophil% 0.2 % (0-1); Hematocrit 24.6 % (40-54); Hemoglobin 8.6 g/dL (13.0-16.5); Lymphocyte # 0.93 X10^3/ul (0.83-4.51); Lymphocyte % 5.1 % (19-41); Mean Corpuscular Hgb 35.5 pg (27.0-32.0); Mean Corpuscular Volume 101.7 fL (80-94); Mean Platelet Vol. 10.1 fl (6.2-12.0); Monocyte# 1.88 X10^3/uL; Monocyte% 10.3 % (0-10); NRBC Flagged by Analyzer 0.2 % (0-5); Neutrophil # 14.95 X10^3/uL (2.7-7.7); Neutrophil % 81.9 % (47-70); POSITIVE DIFFERENTIAL YES; Platelet Count 135 K/mm3 (150-450); RBC Distribution Width CV 18.8 % (11.6-14.6); RBC Distribution Width SD 64.2 fl (35.1-43.9); Red Blood Count 2.42 M/mm3 (4.6-6.2); White Blood Count 18.2 K/mm3 (4.4-11.0)
[2023-05-31 06:47] LABS: Differential Indicated SCAN CRITERIA MET
[2023-05-31 07:15] LABS: ALB/GLOB Ratio 0.3 RATIO (0.9-2.4); AST(SGOT) 135 U/L (15-37); Alanine Aminotransfer ALT/SGPT 164 U/L (16-61); Albumin, Serum 1.3 g/dL (3.2-5.0); Alkaline Phosphatase 366 U/L (45-117); Anion Gap 6 (5-15); BUN 38 mg/dL (7-18); BUN/Creat Ratio 39.6 RATIO (10-20); Calcium,Total 7.9 mg/dL (8.5-10.1); Chloride 104 mmol/L (98-107); Creatinine, Serum 0.96 mg/dL (0.70-1.30); EST Glomerular Filtration Rate 84 mL/min (>60); Est Glom Filt Rate - Afr Amer 102 mL/min (>60); Estimated Creatinine Clearance 71.07 ml/min; Globulin 4.8 g/dL (2.2-4.2); Glucose 261 mg/dL (74-106); Potassium 5.2 mmol/L (3.5-5.1); Protein, Total 6.1 g/dL (6.4-8.2); Sodium Level 132 mmol/L (136-145)
[2023-05-31 07:27] LABS: Differential Comment S
[2023-05-31] MEDS: Lactulose 20 GM/30 ML UDC NG (09:48)
[2023-05-31 10:00] VITALS: BP 128/86; PULSE 117; RESP 16; TEMP 36.6; O2SAT 99
--- NOTE | 2023-05-31 10:34 | PN.HOSP_ITS ---
Subjective Subjective Currently oriented to place but not time. He tried to leave yesterday and had to be pink slipped secondary to being a danger to himself. Continues to have lower extremity edema but denies any abdominal pain Objective Data Objective Data Vital Signs: Vital Signs Temp Pulse Resp BP Pulse Ox O2 Del Method 98.5 F 85 16 142/92 H 100 Room Air 05/31/23 04:13 05/31/23 04:13 05/31/23 04:13 05/31/23 04:13 05/31/23 04:13 05/31/23 04:13 Oxygen Delivery Method Room Air Weight: 165 lb Body Mass Index (BMI) 26.6 Intake & Output: Intake and Output for Last 24 Hours 05/30/23 05/31/23 06/01/23 03:59 03:59 03:59 Intake Total 990 / 990 410 / 410 150 / 150 Output Total 200 / 200 400 / 400 Balance 790 / 790 410 / 410 -250 / -250 Lab / Micro Data 05/31/23 06:25 05/31/23 06:25 Labs: Laboratory Results - last 24 hr 05/31/23 06:25: WBC 18.2 H, RBC 2.42 L, Hgb 8.6 L, Hct 24.6 L, MCV 101.7 H, MCH 35.5 H, MCHC 35.0, RDW Std Deviation 64.2 H, RDW Coeff of Eloise 18.8 H, Plt Count 135 L, MPV 10.1, Immature Gran % (Auto) 2.500 H, Neut % (Auto) 81.9 H, Lymph % (Auto) 5.1 L, [place] % (Auto) 10.3 H, Eos % (Auto) 0.0, Baso % (Auto) 0.2, Absolut e Neuts (auto) 15.0 H, Absolute Lymphs (auto) 0.93, Nucleated RBC % 0.2, Differential Comment S, Diff Path Review September, Sodium 132 L, Potassium 5.2 H , Chloride 104, Carbon Dioxide 22.0, Anion Gap 6, BUN 38 H, Creatinine 0.96, Estim Creat Clear Calc 71.07, Est GFR (MDRD) Af Amer 102, Est GFR (MDRD) Non-Af 84, BUN/Creatinine Ratio 39.6 H, Glucose 261 H, Calcium 7.9 L, Total Bilirubin 6.10 H, AST 135 H, ALT 164 H, Alkaline Phosphatase 366 H, Total Protein 6.1 L, Albumin 1.3 L, Globulin 4.8 H, Albumin/Globulin Ratio 0.3 L 05/31/23 09:40: Ammonia 114.0 H Micro: Microbiology 05/24/23 20:20 Blood Culture (Wb) - Left Forearm Blood Culture - Final No growth in 5 days. 05/24/23 19:25 Blood Culture (Wb) - Anticubital Left Blood Culture - Final No growth in 5 days. 05/24/23 20:00 Urine Catheter - Freed Urine Culture - Final Presumptive E. coli Physical Exam Narrative General: Alert, Oriented, Cooperative, No apparent distress HEENT: Atraumatic, PERRLA, EOMI, Normocephalic Oral: Moist Mucosa Neck: Supple, No JVD Lungs: Diminished, Normal air movement, No rhonchi, No wheeze, No rales Cardiovascular: Regular rate, Regular Rhythm, Normal S1, Normal S2, No murmurs Abdomen: Soft, Non Tender, distended, No Hepato-splenomegaly Extremities: edema, Capillary Refill Less than 3 Seconds Skin: No rashes, No breakdown Musculoskeletal: No Tenderness to Palpation of Joints or Extremities Neurological: Cranial nerves II-XII grossly intact, Motor Exam 5/5 strength throughout, Sensory exam intact to light touch and pain Psych/Mental Status: Flat Assessment & Plan Assessment/Plan (1) Cirrhosis: (2) Hepatic encephalopathy: (3) UTI (urinary tract infection): PLAN: Plan 1. Acute hepatic encephalopathy ? In a patient with liver cirrhosis admitted to regular nursing floor. Patient ordered lactulose via enema. Plan is to place an order for NG tube for lactulose to be administered through the NG -05/26/2023. Patient seen much more awake and interactive this a.m. CT of the br ain obtained the day prior did show Mild left posterior scalp swelling/hematoma. Otherwise normal unenhanced CT scan of the brain. MRI subsequently ordered for further eval given patient's significant encephalopathy ? 05/28/2023 clinical condition continues to improve however patient continues to develop episodic delirium. 05/29/2023: Continue with physical therapy and Occupational Therapy may need to search for fdc facility 05/30/2023: Will reach out to family as he does have difficulty understanding the risk and benefits of his decision making 05/31/2023: Will consult gastroenterology as he continues to be fluctuating in his mentation and physical condition 2. Acute cystitis ? Complicating patient care patient started on ceftriaxone cultures sent ? Urine cultures positive for pansensitive E. coli patient is on ceftriaxone 05/29/2023: Continue with his Rocephin, is received 5 days so far 05/30/2023: Does have a slight increase in his white blood cell count of 13.6 unclear if this is infectious as his UTI is treated with Rocephin as blood cultures have been negative. Could be related to with Decadron, will recheck in the morning 05/31/2023: White count has not creased to 18 without any other signs of infection cultures have been negative and denies any abdominal pain 3. Ascites ? Secondary to patient underlying cirrhosis of the liver patient undergoes scheduled ultrasound-guided paracentesis every 2 weekly 05/29/2023: He had a paracentesis done on the with almost 5 L of fluid removed 4. History of HIV -On Biktarvy 1 tablet daily?05/26/2023 Case was discussed with pharmacy patient HIV medication apparently contraindicated in the presence of acute hepatic inj ury. Biktarvy held. Plan is to hold on discharge till patient is followed by his HIV specialist Dr. Rothman at [facility] in [place] 05/31/2023 we will attempt to get a hold of his HIV specialist to further discuss this care plan 5. Lactic acidosis ? Attributed to patient cirrhosis of the liver 6. Acute kidney injury ? Baseline creatinine 0.88 creatinine on admission was 1.34 patient be rehydrated gently given his cirrhosis. Subsequent monitoring with daily BMPs ordered 7. COVID 19 diagnosis ? Patient completed a 10-day course with dexamethasone 8. Acute transaminitis ? Secondary to patient underlying cirrhosis of the liver 9. Anemia - Secondary to chronic disorder monitoring H&H and transfuse if patient becomes symptomatic or hemoglobin falls below 7 DVT: SCDs Capacity Capacity Assessment Tool Patient lacks Decision Making Capacity: unable to understand, reason and deliberate health related choices: Yes Risk to self and or others?: Yes Risk of leaving the patient care unit and or hospital?: Yes [employer] Reflex Medical hold order details:: IF a medical hold is selected below, a suggested order for a MEDICAL HOLD will reflex upon signing the document. Define type of medical hold:: Hospital Imposed Next of kin: [place] law dictates a PRIORITY LIST for identifying legal decision-maker/legal ne xt of kin in the following order (LNOK): 1st: The patient?s legal guardian, if any 2nd: The patient's spouse (if status is questionable, consult Risk Management) 3rd: The patient?s adult child(millicent) (majority, if multiple children) 4th: The patient?s parents 5th: The patient?s adult siblings (majority, if multiple children siblings) Charges/Coding Visit Charges Inpatient E&M: 14762 Subs Hosp L2
[2023-05-31 14:30] VITALS: BP 134/87; PULSE 115; RESP 14; TEMP 36.6; O2SAT 100
--- NOTE | 2023-05-31 16:00 | EX.PCM.CON.G ---
HPI Consult Data Date of Consult: 05/31/23 HPI Narrative HPI Narrative: WILLY TODD, is a 62 M with history of HIV on retroviral therapy and alcoholic cirrhosis complicated by pancytopenia, ascites and Warnicke's encephalopathy. He initially presented to the ED on 05/24/2023 with a complaint of confusion and weakness. He was found to be very confused on admission. All of history is obtained from the patient's chart. Vitals in the ED were BP of 149/96, [place] of 111, RR of 16 and temp of 97.9F as well as oxygen sats of 100% on room air. CBC showed Hb of 10.9, wbc of 14.5, platelets of 183. Chemistry showed sodium of 136, potassium of 5.2 and Cr of 1.34. Lactic acid was 5.3 and total bilirubin was 9.3. Calcium was 7.8 and direct bilirubin was 7.59. AST and ALT as well as ALP were elevated and ammonia level was 70. Urinalysis also showed evidence of UTI with elevated nitrites and leukocyte esterase as well as 2+ bacteria. Urine tox was positive for opiates. Serum alcohol level was less than 3. Chest x-ray showed bilateral basilar atelectasis but no other acute cardiopulmonary process. CT of the abdomen and pelvis showed findings consistent with cirrhosis and large amount of ascites as well as splenomegaly and nonobstructive stone within the lower pole of the left kidney as well as on unremarkable left kidney. CT brain showed mild left posterior scalp swelling and hematoma but was otherwise normal. He has been admitted to be managed for acute encephalopathy due to elevated ammonia level from hepatic encephalopathy and UTI. At this time he knows who he is and where he is. He thinks it is the year 2018. His HIV medicines were stopped when he came into the hospital due to metabolic acidosis. [facility] Medical History (Updated 05/31/23 @ 16:[address] Frankel Friend, DO) Cirrhosis HIV disease Medical History unable to obtain Home Medications bictegravir 50 mg-emtricitabine 200 mg-tenofovir alafenam 25 mg tablet (Biktarvy) 1 tab PO DAILY 04/28/23 [History Last Taken Unknown] dexamethasone 6 mg tablet 6 mg PO DAILY 10 days #10 tabs 05/20/23 [Rx Last Taken Unknown] hydroxyzine HCl 10 mg tablet 10 mg PO QHS 05/20/23 [History Last Taken Unknown] oxycodone-acetaminophen 5 mg-325 mg tablet (Percocet) 1 tab PO Q6H PRN pain 5 days #20 tabs 05/20/23 [Rx Last Taken Unknown] cefdinir 300 mg capsule 300 mg PO BID #10 caps 05/26/23 [Rx Last Taken Unknown] lactulose 20 gram/30 mL oral solution 20 g (30 mL) NG DAILY 30 days #900 mL 05/26/23 [Rx Last Taken Unknown] Allergy/AdvReac Type Severity Reaction Status Date / Time No Known Allergies Allergy Verified 05/24/23 18:29 Social History Smoking Status: Former smoker ROS Review of Systems ROS Unobtainable: due to encephalopathy Physical Exam Narrative General: Alert, Oriented, Cooperative, No apparent distress HEENT: Atraumatic, PERRLA, EOMI, Normocephalic Oral: Moist Mucosa Neck: Supple, No JVD Lungs: Diminished, Normal air movement, No rhonchi, No wheeze, No rales Cardiovascular: Regular rate, Regular Rhythm, Normal S1, Normal S2, No murmurs Abdomen: Soft, Non Tender, distended, No Hepato-splenomegaly Extremities: edema, Capillary Refill Less than 3 Seconds Skin: No rashes, No breakdown Musculoskeletal: No Tenderness to Palpation of Joints or Extremities Neurological: Cranial nerves II-XII grossly intact, Motor Exam 5/5 strength throughout, Sensory exam intact to light touch and pain Psych/Mental Status: Flat Lab / Micro Data 05/31/23 06:25 05/31/23 06:25 Labs: Laboratory Results - last 24 hr 05/31/23 06:25: WBC 18.2 H, RBC 2.42 L, Hgb 8.6 L, Hct 24.6 L, MCV 101.7 H, MCH 35.5 H, MCHC 35.0, RDW Std Deviation 64.2 H, RDW Coeff of Eloise 18.8 H, Plt Count 135 L, MPV 10.1, Immature Gran % (Auto) 2.500 H, Neut % (Auto) 81.9 H, Lymph % (Auto) 5.1 L, [place] % (Auto) 10.3 H, Eos % (Auto) 0.0, Baso % (Auto) 0.2, Absolute Neuts (auto) 15.0 H, Absolute Lymphs (auto) 0.93, Nucleated RBC % 0.2, Differential Comment S, Diff Path Review May foll, Sodium 132 L, Potassium 5.2 H, Chloride 104, Carbon Dioxide 22.0, Anion Gap 6, BUN 38 H, Creatinine 0.96, Estim Creat Clear Calc 71.07, Est GFR (MDRD) Af Amer 102, Est GFR (MDRD) Non-Af 84, BUN/Creatinine Ratio 39.6 H, Glucose 261 H, Calcium 7.9 L, Total Bilirubin 6.10 H, AST 135 H, ALT 164 H, Alkaline Phosphatase 366 H, Total Protein 6.1 L, Albumin 1.3 L, Globulin 4.8 H, Albumin/Globulin Ratio 0.3 L 05/31/23 09:40: Ammonia 114.0 H Assessment & Plan Assessment/Plan (1) Cirrhosis: QUALIFIERS: Hepatic cirrhosis type: alcoholic cirrhosis Ascites presence: with ascites Qualified Code(s): K70.31 - Alcoholic cirrhosis of liver with ascites (2) Hepatic encephalopathy: (3) UTI (urinary tract infection): PLAN: Plan Patient is a 62-year-old gentleman with history of cirrhosis of the liver who presented to the emergency department with altered mental status and assessment of acute hepatic encephalopathy made admitted to regular nursing floor for further management Acute hepatic encephalopathy ? In a patient with liver cirrhosis admitted to regular nursing floor. He received lactulose via enema. CT of the brain obtained the day prior did show Mild left posterior scalp swelling/hematoma. Otherwise normal unenhanced CT scan of the brain. MRI was going to be ordered for further eval given patient's significant encephalopathy. However, is clinical condition continues to improve however patient continues to develop episodic delirium. I rechecked his ammonia level and it is up to 214 and it was previously 29. I recommend to give him neomycin, lactulose at a every 4 interval, Xifaxan Ascites ? Secondary to patient underlying cirrhosis of the liver patient undergoes scheduled ultrasound-guided paracentesis every 2 weekly History of HIV -He was on Biktarvy 1 tablet daily?05/26/2023 Case was discussed with pharmacy patient HIV medication apparently contraindicated in the presence of acute hepatic injury. Biktarvy has been held. Acute transaminitis ? Secondary to patient underlying cirrhosis of the liver - He should a work up for liver disease such as HIV associated liver disease causing HIV cholangiopathy and Autoimmune disease, etc. . He may need a liver biopsy. Capacity Legal [employer] Clerk Reflex Medical hold order details:: IF a medical hold is selected below, a suggested order for a MEDICAL HOLD will reflex upon signing the document. Next of kin: [place] law dictates a PRIORITY LIST for identifying legal decision-maker/legal next of kin in the following order (LNOK): 1st: The patient?s legal guardian, if any 2nd: The patient's spouse (if status is questionable, consult Risk Management) 3rd: The patient?s adult child(millicent) (majority, if multiple children) 4th: The patient?s parents 5th: The patient?s adult siblings (majority, if multiple children siblings) Charges/Coding Visit Charges Inpatient E&M: 72426 Init Hosp L3
[2023-05-31] MEDS: 0.9% Saline Lock 10 ML Syringe IV (17:26)
[2023-05-31] MEDS: Furosemide 40 MG/4 ML Vial IV (17:26)
[2023-05-31] MEDS: metroNIDAZOLE 500 MG Tablet PO ×2 (17:27→21:09)
[2023-05-31] MEDS: Lactulose 20 GM/30 ML UDC PO ×2 (17:27→21:09)
[2023-05-31] MEDS: rifAXIMin 550 MG Tablet PO ×2 (17:38→21:10)
[2023-05-31 21:05] VITALS: BP 131/89; PULSE 107; RESP 18; TEMP 36.8; O2SAT 100
[2023-05-31] MEDS: hydrOXYzine 10 MG Tablet GT (21:09)
[2023-05-31] MEDS: Ceftriaxone 1 GM/50 ML BAG IV (21:20)
[2023-06-01] VITALS (7 sets, daily range): BP systolic 110–135; BP diastolic 71–85; PULSE 101–115; RESP 14–18; TEMP 36.2–36.6; O2SAT 100
[2023-06-01] MEDS: Lactulose 20 GM/30 ML UDC PO ×6 (02:41→23:08)
[2023-06-01] MEDS: metroNIDAZOLE 500 MG Tablet PO ×2 (05:15→15:35)
[2023-06-01] MEDS: rifAXIMin 550 MG Tablet PO ×3 (05:15→23:08)
[2023-06-01 07:53] LABS: Absolute Lymphocyte Count 1.33 X10^3/uL (0.83-4.51); Absolute Neutrophil Count 12.1 X10^3/uL (2.0-7.7); Basophil# 0.02 X10^3/uL; Basophil% 0.1 % (0-1); Eosinophil# 0.01 X10^3/uL; Eosinophils% 0.1 % (0-5); Hematocrit 25.5 % (40-54); Hemoglobin 8.8 g/dL (13.0-16.5); Lymphocyte # 1.33 X10^3/ul (0.83-4.51); Mean Corp Hgb Conc 34.5 g/dL (32-36); Mean Corpuscular Hgb 35.5 pg (27.0-32.0); Mean Corpuscular Volume 102.8 fL (80-94); Mean Platelet Vol. 10.5 fl (6.2-12.0); Monocyte# 1.08 X10^3/uL; Monocyte% 7.3 % (0-10); NRBC Flagged by Analyzer 0 % (0-5); Neutrophil # 12.05 X10^3/uL (2.7-7.7); Neutrophil % 81.5 % (47-70); POSITIVE MORPHOLOGY YES; Platelet Count 124 K/mm3 (150-450); RBC Distribution Width CV 19.8 % (11.6-14.6); RBC Distribution Width SD 71.2 fl (35.1-43.9); Red Blood Count 2.48 M/mm3 (4.6-6.2); White Blood Count 14.8 K/mm3 (4.4-11.0)
[2023-06-01 08:05] LABS: Differential Indicated SCAN CRITERIA MET
[2023-06-01 08:30] LABS: ALB/GLOB Ratio 0.3 RATIO (0.9-2.4); AST(SGOT) 153 U/L (15-37); Alanine Aminotransfer ALT/SGPT 174 U/L (16-61); Albumin, Serum 1.3 g/dL (3.2-5.0); Alkaline Phosphatase 349 U/L (45-117); Anion Gap 7 (5-15); BUN 39 mg/dL (7-18); BUN/Creat Ratio 36.8 RATIO (10-20); Chloride 105 mmol/L (98-107); Creatinine, Serum 1.06 mg/dL (0.70-1.30); EST Glomerular Filtration Rate 75 mL/min (>60); Est Glom Filt Rate - Afr Amer 91 mL/min (>60); Estimated Creatinine Clearance 64.37 ml/min; Globulin 4.7 g/dL (2.2-4.2); Glucose 155 mg/dL (74-106); Potassium 3.8 mmol/L (3.5-5.1); Sodium Level 134 mmol/L (136-145)
[2023-06-01 08:35] LABS: Anisocytosis 2+; Differential Comment SCANNED; Macrocytosis 1+; Microcytosis 1+
--- NOTE | 2023-06-01 09:31 | PCM.PN.HOSP ---
Subjective Subjective No issues overnight, still a little confused Objective Data Objective Data Vital Signs: Vital Signs Temp Pulse Resp BP Pulse Ox O2 Del Method 98 F 101 H 14 110/73 100 Room Air 06/01/23 02:43 06/01/23 02:43 06/01/23 02:43 06/01/23 02:43 06/01/23 02:43 06/01/23 02:43 Oxygen Delivery Method Room Air Weight: 165 lb Body Mass Index (BMI) 26.6 Intake & Output: Intake and Output for Last 24 Hours 05/31/23 06/01/23 06/02/23 03:59 03:59 03:59 Intake Total 410 / 410 500 / 500 280 / 280 Output Total 1100 / 1100 400 / 400 Balance 410 / 410 -600 / -600 -120 / -120 Lab / Micro Data 06/01/23 07:45 06/01/23 07:45 Labs: Laboratory Results - last 24 hr 05/31/23 09:40: Ammonia 114.0 H 06/01/23 07:45: WBC 14.8 H, RBC 2.48 L, Hgb 8.8 L, Hct 25.5 L, MCV 102.8 H, MCH 35.5 H, MCHC 34.5, RDW Std Deviation 71.2 H, RDW Coeff of Eloise 19.8 H, Plt Count 124 L, MPV 10.5, Immature Gran % (Auto) 2.000 H, Neut % (Auto) 81.5 H, Lymph % (Auto) 9.0 L, [place] % (Auto) 7.3, Eos % (Auto) 0.1, Baso % (Auto) 0.1, Absolute Neuts (auto) 12.1 H, Absolute Lymphs (auto) 1.33, Nucleated RBC % 0, Differential Comment SCANNED, Anisocytosis 2+, Microcytosis 1+, Macrocytosis 1+, Sodium 134 L, Potassium 3.8, Chloride 105, Carbon Dioxide 22.0, Anion Gap 7, BUN 39 H, Creatinine 1.06, Estim Creat Clear Calc 64.37, Est GFR (MDRD) Af Amer 91, Est GFR (MDRD) Non-Af 75, BUN/Creatinine Ratio 36.8 H, Glucose 155 H, Calcium 8.0 L, Total Bilirubin 6.60 H, AST 153 H, ALT 174 H, Alkaline Phosphatase 349 H, Total Protein 6.0 L, Albumin 1.3 L, Globulin 4.7 H, Albumin/Globulin Ratio 0.3 L Micro: Microbiology 05/24/23 20:20 Blood Culture (Wb) - Left Forearm Blood Culture - Final No growth in 5 days. 05/24/23 19:25 Blood Culture (Wb) - Anticubital Left Blood Culture - Final No growth in 5 days. 05/24/23 20:00 Urine Catheter - Freed Urine Culture - Final Presumptive E. coli Physical Exam Narrative General: Alert, Oriented x1, Cooperative, No apparent distress HEENT: Atraumatic, PERRLA, EOMI, Normocephalic Oral: Moist Mucosa Neck: Supple, No JVD Lungs: Diminished, Normal air movement, No rhonchi, No wheeze, No rales Cardiovascular: Regular rate, Regular Rhythm, Normal S1, Normal S2, No murmurs Abdomen: Soft, Non Tender, distended, No Hepato-splenomegaly Extremities: edema, Capillary Refill Less than 3 Seconds Skin: No rashes, No breakdown Musculoskeletal: No Tenderness to Palpation of Joints or Extremities Neurological: Cranial nerves II-XII grossly intact, Motor Exam 5/5 strength throughout, Sensory exam intact to light touch and pain Psych/Mental Status: Flat Assessment & Plan Assessment/Plan (1) Cirrhosis: QUALIFIERS: Hepatic cirrhosis type: alcoholic cirrhosis Ascites presence: with ascites Qualified Code(s): K70.31 - Alcoholic cirrhosis of liver with ascites (2) Hepatic encephalopathy: (3) UTI (urinary tract infection): PLAN: Plan 1. Acute hepatic encephalopathy ? In a patient with liver cirrhosis admitted to regular nursing floor. Patient ordered lactulose via enema. Plan is to place an order for NG tube for lactulose to be administered through the NG -05/26/2023. Patient seen much more awake and interactive this a.m. CT of the brain obtained the day prior did show Mild left posterior scalp swelling/hematoma. Otherwise normal unenhanced CT scan of the brain. MRI subsequently ordered for further eval given patient's significant encephalopathy ? 05/28/2023 clinical condition continues to improve however patient continues to develop episodic delirium. 05/29/2023: Continue with physical therapy and Occupational Therapy may need to search for pen[facility]entiary facility 05/30/2023: Will reach out to family as he does have difficulty understanding the risk and benefits of his decision making 05/31/2023: Will consult gastroenterology as he continues to be fluctuating in his mentation and physical condition 06/01/2023: Proceed with paracentesis today, added Lasix and Aldactone, unclear why this has not been on him as an outpatient, increase lactulose as his ammonia jumped to 114 MELD score is 27. Appreciate gastroenterology's assistance, continue with neomycin as well as Xifaxan and Flagyl 2. Acute cystitis ? Complicating patient care patient started on ceftriaxone cultures sent ? Urine cultures positive for pansensitive E. coli patient is on ceftriaxone 05/29/2023: Continue with his Rocephin, is received 5 days so far 05/30/2023: Does have a slight increase in his white blood cell count of 13.6 unclear if this is infectious as his UTI is treated with Rocephin as blood cultures have been negative. Could be related to with Decadron, will recheck in the morning 05/31/2023: White count has not creased to 18 without any other signs of infection cultures have been negative and denies any abdominal pain 3. Ascites ? Secondary to patient underlying cirrhosis of the liver patient undergoes scheduled ultrasound-guided paracentesis every 2 weekly 05/29/2023: He had a paracentesis done on the with almost 5 L of fluid removed 06/01/2023: Proceed with paracentesis today 4. History of HIV -On Biktarvy 1 tablet daily?05/26/2023 Case was discussed with pharmacy patient HIV medication apparently contraindicated in the presence of acute hepatic injury. Biktarvy held. Plan is to hold on discharge till patient is followed by his HIV specialist Dr. Rothman at [facility] in [place] 05/31/2023: We will attempt to get a hold of his HIV specialist to further discuss this care plan 5. Lactic acidosis ? Attributed to patient cirrhosis of the liver 6. Acute kidney injury ? Baseline creatinine 0.88 creatinine on admission was 1.34 patient be rehydrated gently given his cirrhosis. Subsequent monitoring with daily BMPs ordered 7. COVID 19 diagnosis ? Patient completed a 10-day course with dexamethasone 8. Acute transaminitis ? Secondary to patient underlying cirrhosis of the liver 9. Anemia - Secondary to chronic disorder monitoring H&H and transfuse if patient becomes symptomatic or hemoglobin falls below 7 DVT: SCDs Capacity Legal Senior [employer] Reflex Medical hold order details:: IF a medical hold is selected below, a suggested order for a MEDICAL HOLD will reflex upon signing the document. Next of kin: [place] law dictates a PRIORITY LIST for identifying legal decision-maker/legal next of kin in the following order (LNOK): 1st: The patient?s legal guardian, if any 2nd: The patient's spouse (if status is questionable, consult Risk Management) 3rd: The patient?s adult child(millicent) (majority, if multiple children) 4th: The patient?s parents 5th: The patient?s adult siblings (majority, if multiple children siblings) Charges/Coding Visit Charges Inpatient E&M: 57868 Subs Hosp L2
[2023-06-01 09:36] LABS: Pathologist Review Reviewed
[2023-06-01 11:54] LABS: Ammonia < 10.0 umol/L (11-32)
[2023-06-01] MEDS: Spironolactone 25 MG Tablet PO (11:57)
--- NOTE | 2023-06-01 13:35 | EX.PCM.PN.GI ---
Subjective Subjective Patient seems a lot more alert and awake today. He had multiple bowel movements after increase administration of lactulose. He is scheduled for paracentesis today. He knows where he is. He knows the year. He knows that the president is. He seems a lot more coherent than he was yesterday. Objective Data Objective Data Vital Signs: Vital Signs Temp Pulse Resp BP Pulse Ox O2 Del Method 97.2 F L 110 H 16 135/85 H 100 Room Air 06/01/23 08:45 06/01/23 08:45 06/01/23 08:45 06/01/23 08:45 06/01/23 08:45 06/01/23 08:45 Oxygen Delivery Method Room Air Weight: 165 lb Body Mass Index (BMI) 26.6 Intake & Output: Intake and Output for Last 24 Hours 05/30/23 05/31/23 06/01/23 23:59 23:59 23:59 Intake Total 50 / 410 560 / 860 580 / 580 Output Total 650 / 1100 1800 / 1800 Balance 50 / 410 -90 / -240 -1220 / -1220 Lab / Micro Data 06/03/23 05:58 06/03/23 05:58 Labs: Laboratory Results - last 24 hr 05/31/23 06:25: Diff Path Review Reviewed 06/01/23 07:45: WBC 14.8 H, RBC 2.48 L, Hgb 8.8 L, Hct 25.5 L, MCV 102.8 H, MCH 35.5 H, MCHC 34.5, RDW Std Deviation 71.2 H, RDW Coeff of Eloise 19.8 H, Plt Count 124 L, MPV 10.5, Immature Gran % (Auto) 2.000 H, Neut % (Auto) 81.5 H, Lymph % (Auto) 9.0 L, [place] % (Auto) 7.3, Eos % (Auto) 0.1, Baso % (Auto) 0.1, Absolute Neuts (auto) 12.1 H, Absolute Lymphs (auto) 1.33, Nucleated RBC % 0, Differential Comment SCANNED, Anisocytosis 2+, Microcytosis 1+, Macrocytosis 1+, Sodium 134 L, Potassium 3.8, Chloride 105, Carbon Dioxide 22.0, Anion Gap 7, BUN 39 H, Creatinine 1.06, Estim Creat Clear Calc 64.37, Est GFR (MDRD) Af Amer 91, Est GFR (MDRD) Non-Af 75, BUN/Creatinine Ratio 36.8 H, Glucose 155 H, Calcium 8.0 L, Total Bilirubin 6.60 H, AST 153 H, ALT 174 H, Alkaline Phosphatase 349 H, Total Protein 6.0 L, Albumin 1.3 L, Globulin 4.7 H, Albumin/Globulin Ratio 0.3 L 06/01/23 11:23: Ammonia < 10.0 L Micro: Microbiology 05/24/23 20:20 Blood Culture (Wb) - Left Forearm Blood Culture - Final No growth in 5 days. 05/24/23 19:25 Blood Culture (Wb) - Anticubital Left Blood Culture - Final No growth in 5 days. 05/24/23 20:00 Urine Catheter - Freed Urine Culture - Final Presumptive E. coli Physical Exam Narrative General: Alert, Oriented x2, Cooperative, No apparent distress HEENT: Atraumatic, PERRLA, EOMI, Normocephalic Oral: Moist Mucosa Neck: Supple, No JVD Lungs: Diminished, Normal air movement, No rhonchi, No wheeze, No rales Cardiovascular: Regular rate, Regular Rhythm, Normal S1, Normal S2, No murmurs Abdomen: Soft, Non Tender, distended, No Hepato-splenomegaly Extremities: edema, Capillary Refill Less than 3 Seconds Skin: No rashes, No breakdown Musculoskeletal: No Tenderness to Palpation of Joints or Extremities Neurological: Cranial nerves II-XII grossly intact, Motor Exam 5/5 strength throughout, Sensory exam intact to light touch and pain Psych/Mental Status: Flat Assessment & Plan Assessment/Plan (1) Cirrhosis: QUALIFIERS: Ascites presence: with ascites Hepatic cirrhosis type: alcoholic cirrhosis Qualified Code(s): K70.31 - Alcoholic cirrhosis of liver with ascites (2) Hepatic encephalopathy: (3) UTI (urinary tract infection): PLAN: Plan Patient is a 62-year-old gentleman with history of cirrhosis of the liver who presented to the emergency department with altered mental status and assessment of acute hepatic encephalopathy made admitted to regular nursing floor for further management Acute hepatic encephalopathy ? In a patient with liver cirrhosis admitted to regular nursing floor. He received lactulose via enema. CT of the brain obtained the day prior did show Mild left posterior scalp swelling/hematoma. Otherwise normal unenhanced CT scan of the brain. MRI was going to be ordered for further eval given patient's significant encephalopathy. However, is clinical condition continues to improve however patient continues to develop episodic delirium. I rechecked his ammonia level and it is up to 214 and it was previously 29. I recommend to give him neomycin, lactulose at a every 4 interval, Xifaxan Ascites ? Secondary to patient underlying cirrhosis of the liver patient undergoes scheduled ultrasound-guided paracentesis every 2 weekly History of HIV -He was on Biktarvy 1 tablet daily?05/26/2023 Case was discussed with pharmacy patient HIV medication apparently contraindicated in the presence of acute hepatic injury. Biktarvy has been held. Acute transaminitis ? Secondary to patient underlying cirrhosis of the liver - He should a work up for liver disease such as HIV associated liver disease causing HIV cholangiopathy and Autoimmune disease, etc. . He may need a liver biopsy. 06/01/2023-I will contact infectious disease regarding his HIV medicines. His meld has been ranging from 26-30. With his elevated INR I will give him vitamin K to see if it decreases with administration of vitamin K. He is undergoing large-volume paracentesis today. Will order cytology for Paracentesis fluid. I will check alpha-fetoprotein, CEA and CA 19-9. No fluid restriction because he will be on diuretics and is getting larger and paracentesis. Encourage protein rich diet at a 1 mg/kg dose to help prevent sarcopenia associated with liver cirrhosis. I will send autoimmune workups to see if there is any other treatable disease biochemically. Charges/Coding Multi Select Codes Visit Charges Visit Charges: 02349 Subs Hosp L3
--- NOTE | 2023-06-01 13:39 | MRI_ITS ---
STUDY: MR CHOLANGIOPANCREATOGRAPHY (MRCP) REASON FOR EXAM: Male, 62 years old. obstructive jaundice TECHNIQUE: Standard MRCP technique was utilized. 3-D reconstructions were performed. COMPARISON: None. FINDINGS: Gall Bladder: Normal with no distention or demonstrated fixed intraluminal filling defect. Cystic duct: Normal with no demonstrated fixed filling defect. Intrahepatic ducts: Normal visualized intrahepatic ducts with no demonstrated fixed filling defect, dilation or stricture. Common hepatic duct: Normal with no demonstrated fixed filling defect, dilation or stricture. Common bile duct: Normal with no demonstrated fixed filling defect, dilation or stricture. Pancreatic duct: Normal with no demonstrated fixed filling defect, dilation or stricture. MRI/MRCP Abdomen without Contrast IMPRESSION: Normal MR Cholangiopancreatography (MRCP). Electronically Signed: Jose Alejandro Solitario MD at 22:25 EST ,
[2023-06-01] MEDS: Lidocaine 2% (20 ml mdv) 20 ML Vial INFILT (13:45)
--- NOTE | 2023-06-01 14:15 | PCM.OP.PRO ---
Procedure Report Date of Procedure: 06/01/23 Assessment & Plan Assessment/Plan (1) Ascites due to alcoholic cirrhosis: PLAN: PROCEDURE: Ultrasound guided paracentesis ORDERING PROVIDER: Dr. Bloom INDICATION: Male, 62 years old. Ascites. PROVIDER: TORIE Avila TECHNIQUE: The risks, benefits, and alternatives to the procedure were explained to the patient. The specific risks of bleeding, infection, and damage to bowel were detailed and accepted. Witnessed informed consent was obtained. The abdomen was ultrasonographically surveyed. An appropriate pocket of fluid was identified in the right upper quadrant. The skin was prepped with chlorhexidine and sterile field established. 2% lidocaine was used for local anesthetic. Using ultrasound guidance, the peritoneal cavity was accessed with a 5-Zimbabwean paracentesis needle/catheter system. The trocar was removed. A total of 5450 ml of clear yellow colored fluid was removed from the peritoneal cavity. The catheter was removed and a sterile dressing was applied. The procedure was well tolerated. IMPRESSION: Successful ultrasound-guided paracentesis with right upper quadrant access site. Procedures Radiology Radiology US Procedures: 04734 Paracentesis
[2023-06-01 15:08] LABS: Absolute CD4 Helper 290 /uL (359-1519); Basophils (Absolute) 0 x10E3/uL (0.0-0.2); Eosinophils 0 % (Not Estab.); Eosinophils (Absolute) 0 x10E3/uL (0.0-0.4); Hematocrit 22.4 % (37.5-51.0); Hemoglobin 8.3 g/dL (13.0-17.7); Immature Granulocytes 2 % (Not Estab.); Immature Granulocytes Absolute 0.4 x10E3/uL (0.0-0.1); Lymphs 6 % (Not Estab.); Lymphs (Absolute) 1.1 x10E3/uL (0.7-3.1); MCHC 37.1 g/dL (31.5-35.7); MCV 95 fL (79-97); Monocytes 9 % (Not Estab.); Monocytes (Absolute) 1.7 x10E3/uL (0.1-0.9); Neutrophils 83 % (Not Estab.); Neutrophils (Absolute) 15.1 x10E3/uL (1.4-7.0); Percent % CD4 Pos. Lymph. 26.4 % (30.8-58.5); RBC Count 2.37 x10E6/uL (4.14-5.80); RDW 16.5 % (11.6-15.4); WBC Count 18.2 x10E3/uL (3.4-10.8)
--- NOTE | 2023-06-01 15:30 | PN.GI_ITS ---
Subjective Subjective Patient's ammonia level has come down very nicely with the combination medicines that was started yesterday. I will order liver biopsy via CT guidance and that is pending Objective Data Objective Data Vital Signs: Vital Signs Temp Pulse Resp BP Pulse Ox O2 Del Method 98 F 113 H 18 119/71 100 Room Air 06/01/23 14:15 06/01/23 14:15 06/01/23 14:15 06/01/23 14:15 06/01/23 08:45 06/01/23 14:15 Oxygen Delivery Method Room Air Weight: 165 lb Body Mass Index (BMI) 26.6 Intake & Output: Intake and Output for Last 24 Hours 05/30/23 05/31/23 06/01/23 23:59 23:59 23:59 Intake Total 50 / 410 560 / 860 580 / 580 Output Total 650 / 1100 8850 / 8850 Balance 50 / 410 -90 / -240 -8270 / -8270 Lab / Micro Data 06/01/23 07:45 06/01/23 07:45 Labs: Laboratory Results - last 24 hr 05/31/23 06:25: Diff Path Review Reviewed 05/31/23 09:40: WBC 18.2 H, RBC 2.37 L, Hgb 8.3 L, Hct 22.4 L, MCV 95, MCH 35.0 H, MCHC 37.1 H, RDW 16.5 H, Plt Count TNP, Immature Gran % 2, Neutrophils % 83, Lymphocytes % 6, Monocytes % 9, Eosinophils % 0, Basophils % 0, Immature Gran # 0.4 H, Neutrophils # 15.1 H, Lymphocytes # 1.1, Monocytes # 1.7 H, Eosinophils # 0, Basophils # 0, Nucleated RBCs TNP, Immature Blood Cells TNP, % CD4 Cells 26.4 L, Absolute CD4 Count 290 L 06/01/23 07:45: WBC 14.8 H, RBC 2.48 L, Hgb 8.8 L, Hct 25.5 L, MCV 102.8 H, MCH 35.5 H, MCHC 34.5, RDW Std Deviation 71.2 H, RDW Coeff of Eloise 19.8 H, Plt Count 124 L, MPV 10.5, Immature Gran % (Auto) 2.000 H, Neut % (Auto) 81.5 H, Lymph % (Auto) 9.0 L, [place] % (Auto) 7.3, Eos % (Auto) 0.1, Baso % (Auto) 0.1, Absolute Neuts (auto) 12.1 H, Absolute Lymphs (auto) 1.33, Nucleated RBC % 0, Differential Comment SCANNED, Anisocytosis 2+, Microcytosis 1+, Macrocytosis 1+, Sodium 134 L, Potassium 3.8, Chloride 105, Carbon Dioxide 22.0, Anion Gap 7, BUN 39 H, Creatinine 1.06, Estim Creat Clear Calc 64.37, Est GFR (MDRD) Af Amer 91, Est GFR (MDRD) Non-Af 75, BUN/Creatinine Ratio 36.8 H, Glucose 155 H, Calcium 8.0 L, Total Bilirubin 6.60 H, AST 153 H, ALT 174 H, Alkaline Phosphatase 349 H, Total Protein 6.0 L, Albumin 1.3 L, Globulin 4.7 H, Albumin/Globulin Ratio 0.3 L 06/01/23 11:23: Ammonia < 10.0 L Micro: Microbiology 05/24/23 20:20 Blood Culture (Wb) - Left Forearm Blood Culture - Final No growth in 5 days. 05/24/23 19:25 Blood Culture (Wb) - Anticubital Left Blood Culture - Final No growth in 5 days. 05/24/23 20:00 Urine Catheter - Freed Urine Culture - Final Presumptive E. coli Physical Exam Narrative General: Alert, Oriented x2, Cooperative, No apparent distress HEENT: Atraumatic, PERRLA, EOMI, Normocephalic Oral: Moist Mucosa Neck: Supple, No JVD Lungs: Diminished, Normal air movement, No rhonchi, No wheeze, No rales Cardiovascular: Regular rate, Regular Rhythm, Normal S1, Normal S2, No murmurs Abdomen: Soft, Non Tender, distended, No Hepato-splenomegaly Extremities: edema, Capillary Refill Less than 3 Seconds Skin: No rashes, No breakdown Musculoskeletal: No Tenderness to Palpation of Joints or Extremities Neurological: Cranial nerves II-XII grossly intact, Motor Exam 5/5 strength throughout, Sensory exam intact to light touch and pain Psych/Mental Status: Flat Assessment & Plan Assessment/Plan (1) Cirrhosis: QUALIFIERS: Hepatic cirrhosis type: alcoholic cirrhosis Ascites presence: with ascites Qualified Code(s): K70.31 - Alcoholic cirrhosis of liver with ascites (2) Hepatic encephalopathy: (3) UTI (urinary tract infection): PLAN: Plan Patient is a 62-year-old gentleman with history of cirrhosis of the liver who presented to the emergency department with altered mental status and assessment of acute hepatic encephalopathy made admitted to regular nursing floor for further management Acute hepatic encephalopathy ? In a patient with liver cirrhosis admitted to regular nursing floor. He received lactulose via enema. CT of the brain obtained the day prior did show Mild left posterior scalp swelling/hematoma. Otherwise normal unenhanced CT scan of the brain. MRI was going to be ordered for further eval given patient's significant encephalopathy. However, is clinical condition continues to improve however patient continues to develop episodic delirium. I rechecked his ammonia level and it is up to 214 and it was previously 29. I recommend to give him neomycin, lactulose at a every 4 interval, Xifaxan Ascites ? Secondary to patient underlying cirrhosis of the liver patient undergoes scheduled ultrasound-guided paracentesis every 2 weekly History of HIV -He was on Biktarvy 1 tablet daily?05/26/2023 Case was discussed with pharmacy patient HIV medication apparently contraindicated in the presence of acute h epatic injury. Biktarvy has been held. Acute transaminitis ? Secondary to patient underlying cirrhosis of the liver - He should a work up for liver disease such as HIV associated liver disease c ausing HIV cholangiopathy and Autoimmune disease, etc. . He may need a liver biopsy. 06/01/2023-I will contact infectious disease regarding his HIV medicines. His meld has been ranging from 26-30. With his elevated INR I will give him vitamin K to see if it decreases with administration of vitamin K. He is undergoing large-volume paracentesis today. Will order cytology for Paracentesis fluid. I will check alpha-fetoprotein, CEA and CA 19-9. No fluid restriction because he will be on diuretics and is getting larger and paracentesis. Encourage protein rich diet at a 1 mg/kg dose to help prevent sarcopenia associated with liver cirrhosis. I will send autoimmune workups to see if there is any other treatable disease biochemically. Await results from CT-guided biopsy and biochemical workup. Charges/Coding Visit Charges Inpatient E&M: 15450 Init Hosp L3
[2023-06-01] MEDS: Phytonadione (Vit K1) 5 MG TABLET PO (15:34)
[2023-06-01 15:52] LABS: International Normalized Ratio 1.6; Prothrombin Time (Protime)PT. 18.8 SECONDS (11.7-14.9)
[2023-06-01 15:53] LABS: Partial Thromboplast Time 30.4 Seconds (24.1-36.2)
--- NOTE | 2023-06-01 16:02 | CASEMGMT ---
RN CM into pt room, pt nurse just leaving. Pt states he is dc'ing today, pt still with confusion. Noted medical hold is not active on chart. Pt does not have dc in but denies any homegoing needs at this time.
[2023-06-01] MEDS: 0.9% Saline Lock 10 ML Syringe IV ×2 (23:08→23:20)
[2023-06-01] MEDS: hydrOXYzine 10 MG Tablet PO (23:36)
[2023-06-02] VITALS (23 sets, daily range): BP systolic 94–148; BP diastolic 56–91; PULSE 102–116; RESP 12–20; TEMP 36.2–36.7; O2SAT 96–100
--- NOTE | 2023-06-02 | LIV_PTH ---
PATHOLOGY RESULTS PATIENT: WILLY TODD LOC: MS3 U#:[id number] AGE/SX: 62/M ROOM: MT317 RE05/24/[address]: Dr. Sanjiv Bloom MD : 1960 BED: 1 DIS: 06/03/2023 SPEC #: [id number] RECD: 06/02/23 13:12 STATUS: BRANDEN PAT #: [id number] NEIL: 06/02/23 00:[address]: Sanjiv Bloom DEPT: SURGICAL PATHOLOGY RECD BY: Momo Rahman ENTERED: 06/02/23 13:12 SP TYPE: LIVER RES OTHR DR: MD Dr. Khalif Garza MD Dr. Nana Yaa Koram, MD Mark Yoder, [employer] Tissues: Liver, NOS Procedures: PAS with Diastase (control) Trichrome (control) Special Stain Group II PAS Stain (control) Surgery Specimen Level V Retic (control) Iron Stain (control) HEADER OPERATION: CT-guided liver biopsy PRE-OP DIAGNOSIS: Jaundice TISSUE SUBMITTED: Liver 18-gauge x3 MICROSCOPIC DIAGNOSIS Liver, CT-guided core biopsy: Consistent with cirrhosis. See microscopic description and comment. SJ:rg 06/05/2023 COMMENT Correlation with clinical, laboratory findings and appropriate follow up are necessary. MICROSCOPIC DESCRIPTION Slides are reviewed. The specimen shows liver parenchymal tissue with distortion of normal lobular architecture into multiple nodules divided by fibrous septae. Hepatocytes show mild reactive changes and focal macrovesicular steatosis. Chronic inflammation is noted in the hepatocytes nodules. Fibrous septae show moderate to marked chronic inflammatory cell infiltrates. Interface inflammation between fibrous septae and hepatocyte nodule is also noted. Focal bile duct injury and mild ductular proliferation are also present. Iron stain shows absent iron. Reticulin and trichrome stains highlight the fibrous septae in between hepatocyte nodules. PAS stain with and without diastase do not show any abnormal accumulation of protein. All stains are performed with appropriate matched controls. GROSS DESCRIPTION Received in fixative is one container labeled with the patient's name and designated liver. The specimen consists of three irregular fragments of lara soft tissue each measuring 1.5 cm in length and 0.1 cm in diameter. The specimen is totally submitted in one cassette. / RADHA:israel 06/02/2023 TC:5 CPT: 23161, 11859 x5
[2023-06-02] MEDS: Ceftriaxone 1 GM/50 ML BAG IV (00:36)
[2023-06-02] MEDS: metroNIDAZOLE 500 MG Tablet PO ×3 (01:38→20:32)
[2023-06-02] MEDS: 0.9% Saline Lock 10 ML Syringe IV (01:41)
[2023-06-02 05:29] LABS: Absolute Lymphocyte Count 1.27 X10^3/uL (0.83-4.51); Basophil# 0.02 X10^3/uL; Basophil% 0.1 % (0-1); Hematocrit 20.1 % (40-54); Hemoglobin 6.7 g/dL (13.0-16.5); Lymphocyte # 1.27 X10^3/ul (0.83-4.51); Lymphocyte % 9.3 % (19-41); Mean Corp Hgb Conc 33.3 g/dL (32-36); Mean Corpuscular Hgb 34.7 pg (27.0-32.0); Mean Corpuscular Volume 104.1 fL (80-94); Monocyte# 1.11 X10^3/uL; Monocyte% 8.1 % (0-10); NRBC Flagged by Analyzer 0.1 % (0-5); Neutrophil # 10.97 X10^3/uL (2.7-7.7); Neutrophil % 80.2 % (47-70); POSITIVE MORPHOLOGY YES; Platelet Count 120 K/mm3 (150-450); RBC Distribution Width CV 19.9 % (11.6-14.6); RBC Distribution Width SD 74.7 fl (35.1-43.9); Red Blood Count 1.93 M/mm3 (4.6-6.2); White Blood Count 13.7 K/mm3 (4.4-11.0)
[2023-06-02 05:32] LABS: Differential Indicated SCAN CRITERIA MET
[2023-06-02 05:54] LABS: ALB/GLOB Ratio 0.3 RATIO (0.9-2.4); AST(SGOT) 120 U/L (15-37); Alanine Aminotransfer ALT/SGPT 141 U/L (16-61); Albumin, Serum 1.2 g/dL (3.2-5.0); Alkaline Phosphatase 296 U/L (45-117); Anion Gap 7 (5-15); Anisocytosis 2+; BUN 45 mg/dL (7-18); BUN/Creat Ratio 41.7 RATIO (10-20); Calcium,Total 7.2 mg/dL (8.5-10.1); Chloride 103 mmol/L (98-107); Creatinine, Serum 1.08 mg/dL (0.70-1.30); EST Glomerular Filtration Rate 73 mL/min (>60); Est Glom Filt Rate - Afr Amer 89 mL/min (>60); Estimated Creatinine Clearance 63.18 ml/min; Globulin 3.8 g/dL (2.2-4.2); Glucose 190 mg/dL (74-106); Potassium 3.7 mmol/L (3.5-5.1); Sodium Level 134 mmol/L (136-145)
[2023-06-02] MEDS: fentaNYL 100 MCG/2 ML Ampul IV (08:19)
[2023-06-02] MEDS: Midazolam 2 MG/2 ML Syringe IV (08:19)
[2023-06-02] MEDS: 0.9% Normal Saline (250mL Bag) 250 ML 15 ML IV (08:25)
[2023-06-02] MEDS: Furosemide 40 MG Tablet PO (09:43)
[2023-06-02] MEDS: Spironolactone 25 MG Tablet PO (09:43)
[2023-06-02] MEDS: Lactulose 20 GM/30 ML UDC PO ×4 (09:43→20:32)
[2023-06-02 10:12] LABS: Hematocrit 20.7 % (40-54); Hemoglobin 6.8 g/dL (13.0-16.5)
--- NOTE | 2023-06-02 11:47 | PCM.OP.PRO ---
Procedure Report Date of Procedure: 06/02/23 (60) Assessment & Plan Assessment/Plan (1) Jaundice: PLAN: PROCEDURE: CT DIRECTED CORE LIVER BIOPSY ORDERING PROVIDER: Dr. De La Cruz INDICATION: Male, 62 years old. Cirrhosis. PROVIDER: TORIE Avila CONSENT: Written informed consent was obtained having explained the risks, benefits and alternatives in detail with the patient who accepted the risks and agreed to proceed. Laboratory review and clinical assessment was performed. PRE-PROCEDURE SEDATION ASSESSMENT: Current history and physical dictated by referring provider and reviewed. No clinical changes since date of exam. Patient has an ASA Class of 2. PROCEDURAL SEDATION PROTOCOL: The Drugs used were: 2 mg Versed, IV, and 50 mcg Fentanyl, IV. The sedation time was: 20 minutes, starting at 8:19 AM and terminated at 8:39 AM. The procedural sedation protocol was independently monitored by the department nurse. RADIATION DOSAGE (If Supplied By Facility): CTDIvol = 15.91 mGy, DLP = 311.91 mGycm Individualized dose optimization techniques were used for this CT. TECHNIQUE: The patient was placed in a supine position. Using CT image guidance with image documentation, a suitable location in the left lobe of the liver was identified. The skin surface was prepped with betadine and draped in a sterile fashion. 2% lidocaine was used for local anesthesia. Using a anterior approach, puncture of the liver was uneventful with an 18-gauge core needle system. 3, 18-gauge core samples were obtained, and submitted in formalin to the pathologist for further assessment. The needle was removed. An occlusive sterile dressing was applied. Pressure was held on the dressing, with scant amount of blood on dressing. Patient tolerated the procedure well, and returned to the holding bay for nursing monitoring. IMPRESSION: 1. CT directed core needle biopsy of the liver, using CT image guidance with image documentation as described. 2. Procedural Sedation protocol utilized with independent monitoring. Procedures Radiology Radiology CT Procedures: [id number] Biopsy Liver
--- NOTE | 2023-06-02 12:11 | CASEMGMT ---
Social Work SW met w/pt, pt more alert and oriented today. Pt aware is in the hospital, knows it's May,. 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 Pt agreeable to complete LW/POA forms. SW also did ask pt about drinking. Pt states he has not drank in years. He states he has one occasionally here and there but that's it. He states he told staff here he had a drink in July but is not certain that this is accurate. SW offered resources for alcohol/counseling, pt declined. Pt completed POA for healthcare, LW deferred at this time as pt is not sure about his wishes. Pt listed his sister Kraol as healthcare POA. SW gave pt the original and two copies, and a copy was placed on the chart. SW also asked again about discharge plan, pt continues to state he wants to go home at discharge, and feels he can manage at home. SW remains available for any additional social service needs. JHON Meyers
[2023-06-02] MEDS: rifAXIMin 550 MG Tablet PO ×2 (13:33→20:32)
--- NOTE | 2023-06-02 14:02 | PCM.PN.HOSP ---
Subjective Subjective More alert, no new issues overnight Objective Data Objective Data Vital Signs: Vital Signs Temp Pulse Resp BP Pulse Ox O2 Del Method O2 Flow Rate 97.5 F L 106 H 18 148/89 H 100 Room Air 2 06/02/23 13:34 06/02/23 13:34 06/02/23 13:34 06/02/23 13:34 06/02/23 13:34 06/02/23 13:34 06/02/23 08:39 Oxygen Flow Rate (L/min) 2 Oxygen Delivery Method Room Air Weight: 165 lb Body Mass Index (BMI) 26.6 Intake & Output: Intake and Output for Last 24 Hours 06/01/23 06/02/23 06/03/23 03:59 03:59 03:59 Intake Total 500 / 500 330 / 330 250 / 250 Output Total 1100 / 1100 8400 / 8400 150 / 150 Balance -600 / -600 -8070 / -8070 100 / 100 Lab / Micro Data 06/02/23 10:00 06/02/23 05:15 Labs: Laboratory Results - last 24 hr 05/31/23 09:40: WBC 18.2 H, RBC 2.37 L, Hgb 8.3 L, Hct 22.4 L, MCV 95, MCH 35.0 H, MCHC 37.1 H, RDW 16.5 H, Plt Count TNP, Immature Gran % 2, Neutrophils % 83, Lymphocytes % 6, Monocytes % 9, Eosinophils % 0, Basophils % 0, Immature Gran # 0.4 H, Neutrophils # 15.1 H, Lymphocytes # 1.1, Monocytes # 1.7 H, Eosinophils # 0, Basophils # 0, Nucleated RBCs TNP, Immature Blood Cells TNP, % CD4 Cells 26.4 L, Absolute CD4 Count 290 L 06/01/23 15:29: PT 18.8 H, INR 1.6, APTT 30.4 06/02/23 05:15: WBC 13.7 H, RBC 1.93 L, Hgb 6.7 L, Hct 20.1 L, MCV 104.1 H, MCH 34.7 H, MCHC 33.3, RDW Std Deviation 74.7 H, RDW Coeff of [place] 19.9 H, Plt Count 120 L, MPV 11.0, Immature Gran % (Auto) 2.300 H, Neut % (Auto) 80.2 H, Lymph % (Auto) 9.3 L, [place] % (Auto) 8.1, Eos % (Auto) 0.0, Baso % (Auto) 0.1, Absolute Neuts (auto) 11.0 H, Absolute Lymphs (auto) 1.27, Nucleated RBC % 0.1, Anisocytosis 2+, Sodium 134 L, Potassium 3.7, Chloride 103, Carbon Dioxide 24.0, Anion Gap 7, BUN 45 H, Creatinine 1.08, Estim Creat Clear Calc 63.18, Est GFR (MDRD) Af Amer 89, Est GFR (MDRD) Non-Af 73, BUN/Creatinine Ratio 41.7 H, Glucose 190 H, Calcium 7.2 L, Total Bilirubin 6.00 H, AST 120 H, ALT 141 H, Alkaline Phosphatase 296 H, Total Protein 5.0 L, Albumin 1.2 L, Globulin 3.8, Albumin/Globulin Ratio 0.3 L 06/02/23 10:00: Hgb 6.8 L, Hct 20.7 L, Blood Type A POSITIVE, Antibody Screen NEGATIVE, Crossmatch See Detail Micro: Microbiology 05/24/23 20:20 Blood Culture (Wb) - Left Forearm Blood Culture - Final No growth in 5 days. 05/24/23 19:25 Blood Culture (Wb) - Anticubital Left Blood Culture - Final No growth in 5 days. 05/24/23 20:00 Urine Catheter - Freed Urine Culture - Final Presumptive E. coli Radiography Diagnostic Testing: Radiology Impression MRCP 06/01/23 13:39 IMPRESSION: Normal MR Cholangiopancreatography (MRCP). Electronically Signed: Jose Alejandro Solitario MD at 22:25 EST , Physical Exam Narrative General: Alert, Oriented x3, Cooperative, No apparent distress HEENT: Atraumatic, PERRLA, EOMI, Normocephalic Oral: Moist Mucosa Neck: Supple, No JVD Lungs: Diminished, Normal air movement, No rhonchi, No wheeze, No rales Cardiovascular: Regular rate, Regular Rhythm, Normal S1, Normal S2, No murmurs Abdomen: Soft, Non Tender, distended, No Hepato-splenomegaly Extremities: edema, Capillary Refill Less than 3 Seconds Skin: No rashes, No breakdown Musculoskeletal: No Tenderness to Palpation of Joints or Extremities Neurological: Cranial nerves II-XII grossly intact, Motor Exam 5/5 strength throughout, Sensory exam intact to light touch and pain Psych/Mental Status: Flat Assessment & Plan Assessment/Plan (1) Cirrhosis: QUALIFIERS: Hepatic cirrhosis type: alcoholic cirrhosis Ascites presence: with ascites Qualified Code(s): K70.31 - Alcoholic cirrhosis of liver with ascites (2) Hepatic encephalopathy: (3) UTI (urinary tract infection): PLAN: Plan 1. Acute hepatic encephalopathy ? In a patient with liver cirrhosis admitted to regular nursing floor. Patient ordered lactulose via enema. Plan is to place an order for NG tube for lactulose to be administered through the NG -05/26/2023. Patient seen much more awake and interactive this a.m. CT of the brain obtained the day prior did show Mild left posterior scalp swelling/hematoma. Otherwise normal unenhanced CT scan of the brain. MRI subsequently ordered for further eval given patient's significant encephalopathy ? 05/28/2023 clinical condition continues to improve however patient continues to develop episodic delirium. 05/29/2023: Continue with physical therapy and Occupational Therapy may need to search for half-way facility 05/30/2023: Will reach out to family as he does have difficulty understanding the risk and benefits of his decision making 05/31/2023: Will consult gastroenterology as he continues to be fluctuating in his mentation and physical condition 06/01/2023: Proceed with paracentesis today, added Lasix and Aldactone, unclear why this has not been on him as an outpatient, increase lactulose as his ammonia jumped to 114 MELD score is 27. Appreciate gastroenterology's assistance, continue with neomycin as well as Xifaxan and Flagyl 06/02/2023: Mental status appears much improved today however now he is anemic below 7 possibly due to the paracentesis. Will transfuse 2. Acute cystitis ? Complicating patient care patient started on ceftriaxone cultures sent ? Urine cultures positive for pansensitive E. coli patient is on ceftriaxone 05/29/2023: Continue with his Rocephin, is received 5 days so far 05/30/2023: Does have a slight increase in his white blood cell count of 13.6 unclear if this is infectious as his UTI is treated with Rocephin as blood cultures have been negative. Could be related to with Decadron, will recheck in the morning 05/31/2023: White count has not creased to 18 without any other signs of infection cultures have been negative and denies any abdominal pain 3. Ascites ? Secondary to patient underlying cirrhosis of the liver patient undergoes scheduled ultrasound-guided paracentesis every 2 weekly 05/29/2023: He had a paracentesis done on the with almost 5 L of fluid removed 06/01/2023: Proceed with paracentesis today 06/02/2023: Had over 5 L removed and discussion with gastroenterology when more stable for discharge we will transition him to Cipro 750 mg p.o. once a week 4. History of HIV -On Biktarvy 1 tablet daily?05/26/2023 Case was discussed with pharmacy patient HIV medication apparently contraindicated in the presence of acute hepatic injury. Biktarvy held. Plan is to hold on discharge till patient is followed by his HIV specialist Dr. Rothman at [facility] [place] 05/31/2023: We will attempt to get a hold of his HIV specialist to further discuss this care plan 06/02/2023: He does not have acute hepatitis he has chronic liver disease and he has been on Biktarvy stably for quite a while MRCP does not show any cholestatic pattern to indicate functional failure from Biktarvy according to GI therefore we will resume as his CD4 counts are low 5. Lactic acidosis ? Attributed to patient cirrhosis of the liver 6. Acute kidney injury ? Baseline creatinine 0.88 creatinine on admission was 1.34 patient be rehydrated gently given his cirrhosis. Subsequent monitoring with daily BMPs ordered 7. COVID 19 diagnosis ? Patient completed a 10-day course with dexamethasone 8. Acute transaminitis ? Secondary to patient underlying cirrhosis of the liver 9. Anemia - Secondary to chronic disorder monitoring H&H and transfuse if patient becomes symptomatic or hemoglobin falls below 7 06/02/2023: Hemoglobin less than 7 will transfuse 1 unit possibly from his paracentesis will recheck hemoglobin in the morning DVT: SCDs Charges/Coding Visit Charges Inpatient E&M: 74985 Subs Hosp L2
--- NOTE | 2023-06-02 15:19 | CASEMGMT ---
Addendum entered by Trisha Haas 06/02/23 16:13: TC to pt sister again, received vm. Message left for returned call. Spoke with pt nurse as pt is stating he wants to go home. Made nurse aware MAREK DIMAS was trying to reach sister to confirm she is able to be able to assist pt at home. Original Note: Made aware by Vaishali that pt sister had left a message on her phone. TC to pt sister Karol, received vm, left message giving the [facility] floor number so that she could get a response as Vaishali works operations officer [employer]. Requested returned call to this RN JUDIE.
--- NOTE | 2023-06-02 15:41 | EX.PCM.PN.GI ---
Subjective Subjective Patient is a lot more alert and awake today. He is alert and awake and oriented x 3. He underwent large-volume paracentesis for more than 5.4 L yesterday along with a liver biopsy today. He does not have any abdominal pain. His hemoglobin was discovered to be down to 6.8 from 8.7. The repeat hemoglobin today confirms his low hemoglobin. He is currently getting transfused 1 unit of packed red blood cells. Objective Data Objective Data Vital Signs: Vital Signs Temp Pulse Resp BP Pulse Ox O2 Del Method O2 Flow Rate 97.6 F L 106 H 16 121/85 H 100 Room Air 2 06/02/23 15:32 06/02/23 15:32 06/02/23 15:32 06/02/23 15:32 06/02/23 15:32 06/02/23 15:32 06/02/23 08:39 Oxygen Flow Rate (L/min) 2 Oxygen Delivery Method Room Air Weight: 165 lb Body Mass Index (BMI) 26.6 Intake & Output: Intake and Output for Last 24 Hours 05/31/23 06/01/23 06/02/23 23:59 23:59 23:59 Intake Total 560 / 860 580 / 580 301 / 301 Output Total 650 / 1100 8850 / 8850 150 / 150 Balance -90 / -240 -8270 / -8270 151 / 151 Lab / Micro Data 06/02/23 10:00 06/02/23 05:15 Labs: Laboratory Results - last 24 hr 06/01/23 15:29: PT 18.8 H, INR 1.6, APTT 30.4 06/02/23 05:15: WBC 13.7 H, RBC 1.93 L, Hgb 6.7 L, Hct 20.1 L, MCV 104.1 H, MCH 34.7 H, MCHC 33.3, RDW Std Deviation 74.7 H, RDW Coeff of [place] 19.9 H, Plt Count 120 L, MPV 11.0, Immature Gran % (Auto) 2.300 H, Neut % (Auto) 80.2 H, Lymph % (Auto) 9.3 L, [place] % (Auto) 8.1, Eos % (Auto) 0.0, Baso % (Auto) 0.1, Absolute Neuts (auto) 11.0 H, Absolute Lymphs (auto) 1.27, Nucleated RBC % 0.1, Anisocytosis 2+, Sodium 134 L, Potassium 3.7, Chloride 103, Carbon Dioxide 24.0, Anion Gap 7, BUN 45 H, Creatinine 1.08, Estim Creat Clear Calc 63.18, Est GFR (MDRD) Af Amer 89, Est GFR (MDRD) Non-Af 73, BUN/Creatinine Ratio 41.7 H, Glucose 190 H, Calcium 7.2 L, Total Bilirubin 6.00 H, AST 120 H, ALT 141 H, Alkaline Phosphatase 296 H, Total Protein 5.0 L, Albumin 1.2 L, Globulin 3.8, Albumin/Globulin Ratio 0.3 L 06/02/23 10:00: Hgb 6.8 L, Hct 20.7 L, Blood Type A POSITIVE, Antibody Screen NEGATIVE, Crossmatch See Detail Micro: Microbiology 05/24/23 20:20 Blood Culture (Wb) - Left Forearm Blood Culture - Final No growth in 5 days. 05/24/23 19:25 Blood Culture (Wb) - Anticubital Left Blood Culture - Final No growth in 5 days. 05/24/23 20:00 Urine Catheter - Freed Urine Culture - Final Presumptive E. coli Radiography Diagnostic Testing: Radiology Impression MRCP 06/01/23 13:39 IMPRESSION: Normal MR Cholangiopancreatography (MRCP). Electronically Signed: Jose Alejandro Solitario MD at 22:25 [facility] Reading Location ID and State: [id number] Tel , Service support , Physical Exam Narrative General: Alert, Oriented x3, Cooperative, No apparent distress HEENT: Atraumatic, PERRLA, EOMI, Normocephalic Oral: Moist Mucosa Neck: Supple, No JVD Lungs: Diminished, Normal air movement, No rhonchi, No wheeze, No rales Cardiovascular: Regular rate, Regular Rhythm, Normal S1, Normal S2, No murmurs Abdomen: Soft, Non Tender, distended, No Hepato-splenomegaly Extremities: edema, Capillary Refill Less than 3 Seconds Skin: No rashes, No breakdown Musculoskeletal: No Tenderness to Palpation of Joints or Extremities Neurological: Cranial nerves II-XII grossly intact, Motor Exam 5/5 strength throughout, Sensory exam intact to light touch and pain Psych/Mental Status: Flat Assessment & Plan Assessment/Plan (1) Cirrhosis: QUALIFIERS: Hepatic cirrhosis type: alcoholic cirrhosis Ascites presence: with ascites Qualified Code(s): K70.31 - Alcoholic cirrhosis of liver with ascites (2) Hepatic encephalopathy: (3) UTI (urinary tract infection): PLAN: Plan Patient is a 62-year-old gentleman with history of cirrhosis of the liver who presented to the emergency department with altered mental status and assessment of acute hepatic encephalopathy made admitted to regular nursing floor for further management Acute hepatic encephalopathy ? In a patient with liver cirrhosis admitted to regular nursing floor. He received lactulose via enema. CT of the brain obtained the day prior did show Mild left posterior scalp swelling/hematoma. Otherwise normal unenhanced CT scan of the brain. MRI was going to be ordered for further eval given patient's significant encephalopathy. However, is clinical condition continues to improve however patient continues to develop episodic delirium. I rechecked his ammonia level and it is up to 214 and it was previously 29. I recommend to give him neomycin, lactulose at a every 4 interval, Xifaxan Ascites ? Secondary to patient underlying cirrhosis of the liver patient undergoes scheduled ultrasound-guided paracentesis every 2 weekly History of HIV -He was on Biktarvy 1 tablet daily?05/26/2023 Case was discussed with pharmacy patient HIV medication apparently contraindicated in the presence of acute hepatic injury. Biktarvy has been held. Acute transaminitis ? Secondary to patient underlying cirrhosis of the liver - He should a work up for liver disease such as HIV associated liver disease causing HIV cholangiopathy and Autoimmune disease, etc. . He may need a liver biopsy. 06/01/2023-I will contact infectious disease regarding his HIV medicines. His meld has been ranging from 26-30. With his elevated INR I will give him vitamin K to see if it decreases with administration of vitamin K. He is undergoing large-volume paracentesis today. Will order cytology for Paracentesis fluid. I will check alpha-fetoprotein, CEA and CA 19-9. No fluid restriction because he will be on diuretics and is getting larger and paracentesis. Encourage protein rich diet at a 1 mg/kg dose to help prevent sarcopenia associated with liver cirrhosis. I will send autoimmune workups to see if there is any other treatable disease biochemically. 06/02/2023-patient is doing very well regarding his hepatic encephalopathy. When he leaves the hospital he will need to be on lactulose 30 cc to 40 cc 3 times a day. He will also need to be on neomycin 500 mg twice a day, Xifaxan 5 and 50 mg twice a day, Lasix 20 mg twice a day, spironolactone 50 mg twice a day. 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 Autoimmune labs were not sent for this patient because he has a mechanical engineering draftsperson. He should be checked for hepatitis B, hepatitis C, chronic hepatitis C, autoimmune hepatitis, infiltrative disease such as sarcoidosis, hemochromatosis, amyloidosis which can all be secondary effects to his underlying cirrhosis or primary cause that may be contributing to his elevated direct bilirubinemia. Await results from CT-guided biopsy and biochemical workup. Charges/Coding Visit Charges Inpatient E&M: 58459 Subs Hosp L3
[2023-06-02 16:47] LABS: Hematocrit 25.6 % (40-54); Hemoglobin 8.5 g/dL (13.0-16.5)
--- NOTE | 2023-06-02 17:51 | NURSING ---
Around 1620 on 06/02, this RN went in pt room after pt was setting off bed exit alarm. Pt told this RN that he was leaving. This RN tried to explain to pt that physician (Dr Bloom) was planning on rechecking pt's hemoglobin the next morning (06/03). Pt was arguing with this RN saying that he needed to go home because he had things to do. This RN tried to explain to pt that it is not medically safe for pt to go home at this time. Pt continued to argue, pt said we can make a mess of this or we can do this the right way . This RN messaged Dr Bloom and explained this conversation with the pt. Dr Bloom asked this RN to try to explain that pt's paracentesis could be causing bleeding and we want to recheck hemoglobin and make sure it is stable before discharging pt. This RN tried to explain this to pt and pt said: I don't care, I will go home and get it checked out later. I need to go home now . This RN told Dr Bloom that pt was continuing to argue and was not agreeing with staying at hospital. Dr Bloom came to [facility] and talked to pt. Pt also argued with physician. Security was called. Officer Sebastian came to floor but did not have to intervene. Pt resting in bed.
--- NOTE | 2023-06-02 17:58 | NURSING ---
around 1600, pt began exhibiting signs of restlessness and anxiety, stating that he was going to go home. MD notified. initially, it was determined to activate medical hold order and order was placed at 1623. but upon reassessment and discussion with MD and HRO, it was found that pt did not meed criteria for medical hold order and order was DCed. situation was discussed in concerns for patient safety and pt signed AMA form. pt is attempting to find ride. this RN called pt sister to discuss situation, but no answer, message left. pt reported I'll give her a couple more minutes and then I'll have to call someone else. pt currently resting in room.
--- NOTE | 2023-06-02 17:59 | NURSING ---
After long discussions with Dr Bloom, Officer Sebastian, body specialist, housekeeping manager and social work, it was decided that medical hold order to be removed. Pt does not meet criteria to be held since he oriented. AMA form was signed by pt with kiln charger Mia Grant Pt trying to find a ride from hospital.
--- NOTE | 2023-06-02 18:16 | NURSING ---
at 1600 06/02, pt pulled out his IV. Pt refusing another one to be inserted since he is trying to find a ride home
[2023-06-02] MEDS: hydrOXYzine 10 MG Tablet PO (20:33)
[2023-06-03] MEDS: Mag Hydrox/Al Hydrox/Simeth 30 ML UDC PO (02:05)
[2023-06-03 04:07] LABS: AFP, Tumor Marker 6.2 ng/mL (0.0-8.4); Carbohydrate AG 19-9 < 2 U/mL (0-35); Carcinoembryonic Antigen 6.7 ng/mL (0.0-4.7)
[2023-06-03 05:59] VITALS: BP 116/78; PULSE 109; RESP 20; TEMP 36.5; O2SAT 100
[2023-06-03 06:07] LABS: Absolute Lymphocyte Count 1.16 X10^3/uL (0.83-4.51); Absolute Neutrophil Count 12.2 X10^3/uL (2.0-7.7); Basophil# 0.02 X10^3/uL; Basophil% 0.1 % (0-1); Eosinophil# 0.01 X10^3/uL; Eosinophils% 0.1 % (0-5); Hematocrit 21.6 % (40-54); Hemoglobin 7.3 g/dL (13.0-16.5); Lymphocyte # 1.16 X10^3/ul (0.83-4.51); Lymphocyte % 7.6 % (19-41); Mean Corp Hgb Conc 33.8 g/dL (32-36); Mean Corpuscular Hgb 34.1 pg (27.0-32.0); Mean Corpuscular Volume 100.9 fL (80-94); Mean Platelet Vol. 10.6 fl (6.2-12.0); Monocyte# 1.38 X10^3/uL; NRBC Flagged by Analyzer 0.1 % (0-5); Neutrophil # 12.22 X10^3/uL (2.7-7.7); Neutrophil % 79.6 % (47-70); POSITIVE MORPHOLOGY YES; Platelet Count 119 K/mm3 (150-450); RBC Distribution Width CV 20.4 % (11.6-14.6); RBC Distribution Width SD 73.8 fl (35.1-43.9); Red Blood Count 2.14 M/mm3 (4.6-6.2); White Blood Count 15.3 K/mm3 (4.4-11.0)
[2023-06-03 06:15] LABS: Differential Indicated SCAN CRITERIA MET
[2023-06-03] MEDS: metroNIDAZOLE 500 MG Tablet PO (06:21)
[2023-06-03] MEDS: rifAXIMin 550 MG Tablet PO (06:21)
[2023-06-03 06:30] LABS: ALB/GLOB Ratio 0.3 RATIO (0.9-2.4); AST(SGOT) 98 U/L (15-37); Alanine Aminotransfer ALT/SGPT 121 U/L (16-61); Albumin, Serum 1.1 g/dL (3.2-5.0); Alkaline Phosphatase 266 U/L (45-117); Anion Gap 10 (5-15); BUN 53 mg/dL (7-18); BUN/Creat Ratio 42.4 RATIO (10-20); Calcium,Total 6.8 mg/dL (8.5-10.1); Chloride 96 mmol/L (98-107); Creatinine, Serum 1.25 mg/dL (0.70-1.30); EST Glomerular Filtration Rate 62 mL/min (>60); Est Glom Filt Rate - Afr Amer 75 mL/min (>60); Estimated Creatinine Clearance 54.58 ml/min; Globulin 3.5 g/dL (2.2-4.2); Glucose 178 mg/dL (74-106); Potassium 3.3 mmol/L (3.5-5.1); Protein, Total 4.6 g/dL (6.4-8.2); Sodium Level 128 mmol/L (136-145)
[2023-06-03 06:38] LABS: Anisocytosis 2+; Differential Comment SCANNED; Macrocytosis 1+
[2023-06-03 06:39] LABS: Microcytosis 1+; Polychromasia 1+
[2023-06-03 08:52] VITALS: BP 85/54; PULSE 105; RESP 16; TEMP 36.4; O2SAT 100
[2023-06-03] MEDS: Furosemide 40 MG Tablet PO (09:29)
[2023-06-03] MEDS: Spironolactone 25 MG Tablet PO (09:29)
--- NOTE | 2023-06-03 09:49 | NURSING ---
pt refused chronulac and yelling at staff to get him the phone number to [facility] [place]. number given but pt continues to yell at staff to get him phone numbers to different dealerships.
--- NOTE | 2023-06-03 10:09 | NURSING ---
called sister patricia and she is on her way to pick him up.
--- NOTE | 2023-06-03 10:50 | NURSING ---
pt left ama with sister
--- NOTE | 2023-06-03 14:23 | PCM.PN.HOSP ---
Subjective Subjective Still insistent on going home, hemoglobin dropped to 7.3 and now is hypotensive. He is still alert and oriented x 3 and very aggressive with staff. He has a superficial understanding of his disease process and states that he wants to go home but he does not think he is bleeding and if he feels worse he can always come back. He states that he is a lot of things going on at home that he wants to take care of. I discussed with him the extent of his disease but he still wants to just go home and does not really want to listen to any explanation. His source of bleeding is possibly due to the paracentesis as he is not having any bloody bowel movements but he still is like to go home. Unfortunately he does not have any criteria to meet for pink slip as he does not have active mental health and while the hospital has a policy of a medical hold it does not appear that it can be enforced therefore he signed out AMA and his sister came and picked him up. Objective Data Objective Data Vital Signs: Vital Signs Temp Pulse Resp BP Pulse Ox O2 Del Method O2 Flow Rate 97.6 F L 105 H 16 85/54 L 100 Room Air 2 06/03/23 08:52 06/03/23 08:52 06/03/23 08:52 06/03/23 08:52 06/03/23 08:52 06/03/23 08:52 06/02/23 08:39 Oxygen Flow Rate (L/min) 2 Oxygen Delivery Method Room Air Weight: 165 lb Body Mass Index (BMI) 26.6 Intake & Output: Intake and Output for Last 24 Hours 06/02/23 06/03/23 06/04/23 03:59 03:59 03:59 Intake Total 330 / 330 251 / 251 Output Total 8400 / 8400 150 / 150 Balance -8070 / -8070 101 / 101 Lab / Micro Data 06/03/23 05:58 06/03/23 05:58 Labs: Laboratory Results - last 24 hr 06/01/23 15:29: Tumor Marker AFP 6.2, Carcinoembryonic Ag 6.7 H, CA 19-9 Antigen < 2 06/02/23 10:00: Crossmatch See Detail 06/02/23 16:37: Hgb 8.5 L, Hct 25.6 L 06/03/23 05:58: WBC 15.3 H, RBC 2.14 L, Hgb 7.3 L, Hct 21.6 L, MCV 100.9 H, MCH 34.1 H, MCHC 33.8, RDW Std Deviation 73.8 H, RDW Coeff of Eloise 20.4 H, Plt Count 119 L, MPV 10.6, Immature Gran % (Auto) 3.600 H, Neut % (Auto) 79.6 H, Lymph % (Auto) 7.6 L, [place] % (Auto) 9.0, Eos % (Auto) 0.1, Baso % (Auto) 0.1, Absolute Neuts (auto) 12.2 H, Absolute Lymphs (auto) 1.16, Nucleated RBC % 0.1, Differential Comment SCANNED, Polychromasia 1+, Anisocytosis 2+, Microcytosis 1+, Macrocytosis 1+, Sodium 128 L, Potassium 3.3 L, Chloride 96 L, Carbon Dioxide 22.0, Anion Gap 10, BUN 53 H, Creatinine 1.25, Estim Creat Clear Calc 54.58, Est GFR (MDRD) Af Amer 75, Est GFR (MDRD) Non-Af 62, BUN/Creatinine Ratio 42.4 H, Glucose 178 H, Calcium 6.8 L, Total Bilirubin 7.00 H, AST 98 H, ALT 121 H, Alkaline Phosphatase 266 H, Total Protein 4.6 L, Albumin 1.1 L, Globulin 3.5, Albumin/Globulin Ratio 0.3 L Micro: Microbiology 06/03/23 03:40 Stool Stool Occult Blood (BRYNN) - Final Occult Blood Positive 05/24/23 20:20 Blood Culture (Wb) - Left Forearm Blood Culture - Final No growth in 5 days. 05/24/23 19:25 Blood Culture (Wb) - Anticubital Left Blood Culture - Final No growth in 5 days. 05/24/23 20:00 Urine Catheter - Freed Urine Culture - Final Presumptive E. coli Physical Exam Narrative General: Alert, Oriented x3, not cooperative, No apparent distress HEENT: Atraumatic, PERRLA, EOMI, Normocephalic Oral: Moist Mucosa Neck: Supple, No JVD Lungs: Diminished, Normal air movement, No rhonchi, No wheeze, No rales Cardiovascular: Regular rate, Regular Rhythm, Normal S1, Normal S2, No murmurs Abdomen: Soft, Non Tender, distended, No Hepato-splenomegaly Extremities: edema, Capillary Refill Less than 3 Seconds Skin: No rashes, No breakdown Musculoskeletal: No Tenderness to Palpation of Joints or Extremities Neurological: Cranial nerves II-XII grossly intact, Motor Exam 5/5 strength throughout, Sensory exam intact to light touch and pain Psych/Mental Status: Flat Assessment & Plan Assessment/Plan (1) Cirrhosis: QUALIFIERS: Hepatic cirrhosis type: alcoholic cirrhosis Ascites presence: with ascites Qualified Code(s): K70.31 - Alcoholic cirrhosis of liver with ascites (2) Hepatic encephalopathy: (3) UTI (urinary tract infection): PLAN: Plan 1. Acute hepatic encephalopathy ? In a patient with liver cirrhosis admitted to regular nursing floor. Patient ordered lactulose via enema. Plan is to place an order for NG tube for lactulose to be administered through the NG -05/26/2023. Patient seen much more awake and interactive this a.m. CT of the brain obtained the day prior did show Mild left posterior scalp swelling/hematoma. Otherwise normal unenhanced CT scan of the brain. MRI subsequently ordered for further eval given patient's significant encephalopathy ? 05/28/2023 clinical condition continues to improve however patient continues to develop episodic delirium. 05/29/2023: Continue with physical therapy and Occupational Therapy may need to search for alf facility 05/30/2023: Will reach out to family as he does have difficulty understanding the risk and benefits of his decision making 05/31/2023: Will consult gastroenterology as he continues to be fluctuating in his mentation and physical condition 06/01/2023: Proceed with paracentesis today, added Lasix and Aldactone, unclear why this has not been on him as an outpatient, increase lactulose as his ammonia jumped to 114 MELD score is 27. Appreciate gastroenterology's assistance, continue with neomycin as well as Xifaxan and Flagyl 06/02/2023: Mental status appears much improved today however now he is anemic below 7 possibly due to the paracentesis. Will transfuse 06/03/2023: He signed out AMA cannot place him on Lasix or Aldactone secondary to hypotension, attempted to get him to stay but he refuses to stay. 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 Acute cystitis ? Complicating patient care patient started on ceftriaxone cultures sent ? Urine cultures positive for pansensitive E. coli patient is on ceftriaxone 05/29/2023: Continue with his Rocephin, is received 5 days so far 05/30/2023: Does have a slight increase in his white blood cell count of 13.6 unclear if this is infectious as his UTI is treated with Rocephin as blood cultures have been negative. Could be related to with Decadron, will recheck in the morning 05/31/2023: White count has not creased to 18 without any other signs of infection cultures have been negative and denies any abdominal pain 3. Ascites ? Secondary to patient underlying cirrhosis of the liver patient undergoes scheduled ultrasound-guided paracentesis every 2 weekly 05/29/2023: He had a paracentesis done on the with almost 5 L of fluid removed 06/01/2023: Proceed with paracentesis today 06/02/2023: Had over 5 L removed and discussion with gastroenterology when more stable for discharge we will transition him to Cipro 750 mg p.o. once a week 4. History of HIV -On Biktarvy 1 tablet daily?05/26/2023 Case was discussed with pharmacy patient HIV medication apparently contraindicated in the presence of acute hepatic injury. Biktarvy held. Plan is to hold on discharge till patient is followed by his HIV specialist Dr. Rothman at [facility] in [place] 05/31/2023: We will attempt to get a hold of his HIV specialist to further discuss this care plan 06/02/2023: He does not have acute hepatitis he has chronic liver disease and he has been on Biktarvy stably for quite a while MRCP does not show any cholestatic pattern to indicate functional failure from Biktarvy according to GI therefore we will resume as his CD4 counts are low 5. Lactic acidosis ? Attributed to patient cirrhosis of the liver 6. Acute kidney injury ? Baseline creatinine 0.88 creatinine on admission was 1.34 patient be rehydrated gently given his cirrhosis. Subsequent monitoring with daily BMPs ordered 7. COVID 19 diagnosis ? Patient completed a 10-day course with dexamethasone 8. Acute transaminitis ? Secondary to patient underlying cirrhosis of the liver 9. Anemia - Secondary to chronic disorder monitoring H&H and transfuse if patient becomes symptomatic or hemoglobin falls below 7 06/02/2023: Hemoglobin less than 7 will transfuse 1 unit possibly from his paracentesis will recheck hemoglobin in the morning 06/03/2023: Hemoglobin dropped from 8.5 to 7.3 he refuses to stay for further testing DVT: SCDs Charges/Coding Visit Charges Inpatient E&M: 42218 Subs Hosp L2
[2023-06-06 08:11] LABS: CMV Acute Antibody IgM < 30.0 AU/mL (0.0-29.9); CMV Antibody IgG > 10.00 U/mL (0.00-0.59); Cytoplasmic Ab (C-ANCA) <1:20 titer (Neg:<1:20); EBV Acute VCA IgM < 36.0 U/mL (0.0-35.9); EBV Nuclear Antigen IgG > 600.0 U/mL (0.0-17.9); EBV-VCA IgG > 600.0 U/mL (0.0-17.9); HEPATITIS B SURFACE AG Negative (Negative); Hep C Antibodies Non Reactive (Non Reactive); Hepatitis A IgM Antibody Negative (Negative); Hepatitis B Core AB IgM Negative (Negative); Perinuclear Ab (P-ANCA) <1:20 titer (Neg:<1:20)
== END 2023-06-03 10:55 | disposition left against medical advice (07) | DRG 441 ==
LOC: ED 20:23 → MS2 22:11 → MS3 06-01 19:03
PROVIDERS: Internal Medicine; Internal Medicine Gastroenterology; Admitting Provider Student in an Organized Health Care Education/Training Program; Emergency Provider Emergency Medicine; PCP Nurse Practitioner Family; Visit Provider Family Medicine
DX: K76.82 Hepatic encephalopathy (principal); U07.1 COVID-19; E51.2 Wernicke's encephalopathy; N17.9 Acute kidney failure, unspecified; B20 Human immunodeficiency virus [HIV] disease; N30.00 Acute cystitis without hematuria; D63.8 Anemia in other chronic diseases classified elsewhere; K70.31 Alcoholic cirrhosis of liver with ascites; F10.10 Alcohol abuse, uncomplicated; E87.5 Hyperkalemia; Y90.0 Blood alcohol level of less than 20 mg/100 ml; B96.20 Unspecified Escherichia coli [E. coli] as the cause of diseases classified elsewhere; Z87.891 Personal history of nicotine dependence; Z53.29 Procedure and treatment not carried out because of patient's decision for other reasons
CPT/HCPCS: 36415; 49083; 70450; 70553; 71045; 74018; 74176; 74181; 77012; 80048; 80053; 80074; 80076; 80307; 80320; 81001; 82105; 82140; 82274; 82378; 82945; 83605; 83615; 83735; 84100; 84157; 84484; 85014; 85018; 85025; 85610; 85730; 86256; 86301; 86361; 86644; 86645; 86664; 86665; 86695; 86696; 86850; 86900; 86901; 86920; 86922; 87040; 87086; 87088; 87186; 88108; 88305; 88307; 88313; 88341; 88342; 89050; 93005; 97162; 97166; 97530; 97535; 99156; 99285; A9575; J7030; J7040; J7050; P9016; A4216; G0480; J1940; J2405